=== PATIENT | female | born 1955 | race Caucasian/White ===

== ENCOUNTER 2018-03-01 16:05 | Inpatient (IN) ==
[2018-03-01] MEDS ORDERED: methylPREDNISolone 125 MG/2 ML VIAL IVP ONE (16:12)
[2018-03-01] MEDS ORDERED: Ipratropium/Albuterol Neb 3 ML IH ONE ×2 (16:12→19:42)
--- NOTE | 2018-03-01 16:32 | Emergency Department Note ---
Disposition Clinical Impression: PNA (pneumonia), UTI (urinary tract infection) Disposition: Admitted As Inpatient Condition: Fair Referrals: Mary Beth [Primary Care Provider] - Forms: ED Satisfaction Letter Time of Disposition: 20:38 SOB HPI - General Chief Complaint: ED Shortness of Breath/Dyspnea Stated Complaint: SOB Time Seen by Provider: 03/01/18 16:08 Source: EMS Limitations: no limitations Nursing Notes Reviewed: Yes Vital Signs Reviewed: Yes - History of Present Illness Patient is a 62-year-old female past medical history of diabetes, hypertension, COPD, hyperlipidemia, obesity, cardiomyopathy, CO with a past surgical history of an ICD in place that presents for shortness of breath. Patient admits his symptoms have been occurring for the past 3-4 days. Shortness of breath occurring at rest. Denies any chest pain. Admits to a fever yesterday of 101. Denies any sick contacts at home. Admits to a productive cough with clear sputum. Denies any nausea or vomiting. Admits to minor diarrhea. Denies any hematochezia or melena. Denies any constipation. Denies any dysuria or hematuria. Patient on oxygen at home at 2.5 L and CPAP whenever she lays down. Denies any abdominal pain. Admits to general myalgia and extremities. - Related Data Home Medications Medication Instructions Recorded Confirmed Aspirin [Adult Low Dose Aspirin EC] 81 mg PO DAILY 12/29/15 12/29/15 Furosemide [Lasix] 20 mg PO DAILY 12/29/15 12/29/15 Lisinopril [Zestril] 20 mg PO DAILY 12/29/15 12/29/15 Metoprolol [Lopressor] 50 mg PO BID 12/29/15 12/29/15 Paroxetine [Paxil] 60 mg PO DAILY 12/29/15 12/29/15 metFORMIN [Glucophage] 500 mg PO BIDWM 12/29/15 12/29/15 Previous Rx's Medication Instructions Recorded Simvastatin [Zocor] 40 mg PO HS #30 tablet 12/30/15 Allergies Allergy/AdvReac Type Severity Reaction Status Date / Time venlafaxine [From Effexor] Allergy See Verified 03/01/18 16:23 Comments Past Medical History - Past Medical History Medical history: Reports: atrial fibrillation, cardiomyopathy, CHF, COPD, diabetes, GERD, hypertension, myocardial infarction Psychiatric history: Reports: no psych history - Social History Smoking Status: Current every day smoker Smokeless Tobacco Status: No Alcohol use: Reports: none Drug use: Reports: marijuana Physical Exam - General Limitations: no limitations General appearance: alert - Chest Chest inspection: Present: normal inspection, symmetric chest wall rise - Respiratory Respiratory exam: Present: respiratory distress, wheezes (B/L ) - Cardiovascular Cardiovascular exam: Present: regular rate, normal rhythm, normal heart sounds, +S1, +S2 - Abdominal Exam Abdominal exam: Present: soft, Non-Tender, normal bowel sounds. Absent: tenderness, distention, guarding, rebound, rigidity - Extremities Exam Extremities exam: Present: normal inspection, full ROM. Absent: tenderness, pedal edema Course Course Narrative: Patient given breathing treatments and solu-medrol due to severe wheezing. CT of the chest shows tree-in-bud infiltrates in the right upper lobe of the lung, new since the 04/08/2011 exam, likely related to an infectious etiology. UA shows signs of infection. CTA showes no signs of PE. CTA of head was ordered due to patient displaying brief AMS. Trop was negative EKG shows no ST elevations or acute ischemic changes. Patient placed on bipap. Patient suspected for PNA and UTI. Patient was given rocephin, vancomycin, and rocephin. Spoke to hopsitalist Dr. Chandler who agreed to admit the patient. Chest X-Ray 03/01/18 16:12 IMPRESSION: Stable chest x-ray. No acute disease. D/ / Kyaw Madera MD / Kyaw Madera MD Interpreting Provider: Kyaw Madera MD Chest CTA 03/01/18 18:14 IMPRESSION: 1. There are tree-in-bud infiltrates in the right upper lobe of the lung, new since the 04/08/2011 exam, likely related to an infectious etiology. 2. No evidence of a pulmonary embolism. 3. There are prominent bilateral hilar lymph nodes as well as several paratracheal mediastinal lymph nodes, not appreciably changed dating back to April 08, 2011, favoring a benign etiology. D/ / 03/01/2018 19:23:36 Souleymane Cooper MD / [email or web address] Interpreting Provider: Souleymane Cooper MD Head CT 03/01/18 19:06 IMPRESSION: No acute intracranial abnormality. There was contrast enhancement from a CT chest performed approximately 1 hour earlier. Mild chronic small vessel ischemic white matter disease. D/ / Kyaw Madera MD / Kyaw Madera MD Interpreting Provider: Kyaw Madera MD Vital Signs Temperature 98.3 F 03/01/18 16:12 Pulse Rate 74 03/01/18 16:12 Respiratory Rate 24 03/01/18 16:12 Blood Pressure 131/79 03/01/18 16:12 O2 Sat by Pulse Oximetry 97 03/01/18 16:12 Temperature 98.3 F 03/01/18 16:12 Pulse Rate 67 03/01/18 20:00 Respiratory Rate 23 03/01/18 20:00 Blood Pressure 133/75 03/01/18 20:00 O2 Sat by Pulse Oximetry 100 03/01/18 20:00 Oxygen Delivery Oxygen Delivery Bipap Shortness of Breath/Dyspnea - Lab Data Result diagrams: 03/01/18 16:12 03/01/18 16:12 Lab Results 03/01/18 03/01/18 03/01/18 Range/Units 16:12 16:12 16:12 WBC 3.2 L (4.3-11.1) K/mcL RBC 4.19 (3.82-4.97) M/mcL Hgb 12.5 (11.5-15.4) g/dL Hct 38.3 (35.3-44.9) % MCV 91.4 (83.0-100.0) fL MCH 29.8 (28.0-33.3) pg MCHC 32.6 (31.6-35.5) g/dL RDW 13.1 (11.5-14.5) % Plt Count 175 (140-400) K/mcL MPV 10.0 (9.4-12.4) fL Immature Gran % 0.3 (0-4) % Seg Neutrophils % 54.1 % Lymphocytes % 30.4 % Monocytes % 11.8 % Eosinophils % 2.8 % Basophils % 0.6 % Neutrophils # 1.7 (1.6-8.9) K/mcL Lymphocytes # 1.0 (0.6-4.6) K/mcL Monocytes # 0.4 (0.0-1.3) K/mcL Eosinophils # 0.1 (0.0-0.6) K/mcL Basophils # 0.0 (0.0-0.2) K/mcL PT 11.9 (9.4-12.1) Seconds INR 1.1 APTT 31.2 (26.0-36.0) Seconds Sample Site ABG pH (7.32-7.45) pH Units ABG pCO2 (35-45) mmHg ABG pO2 (85-104) mmHg ABG HCO3 (21-27) mEq/L ABG Total CO2 (20-26) mEq/L ABG O2 Saturation (95-98) % ABG Base Excess (-2 to 3) mEq/L Norberto Test O2 Delivery Device Inspired O2 (1-15=lpm [id number]=%) Sodium 139 (136-145) mEq/L Potassium 3.8 (3.5-5.1) mEq/L Chloride 107 (98-107) mEq/L Carbon Dioxide 26 (23-29) mEq/L BUN 8 (8-23) mg/dL Creatinine 0.61 (0.60-1.20) mg/dL Est GFR ( Amer) > 60 (> 60) Est GFR (Non-Af Amer) > 60 (> 60) BUN/Creatinine Ratio 13 (6-26) Glucose 105 (70-105) mg/dL POC Glucose (70-99) mg/dL Calculated Osmolality 287 (280-300) Lactic Acid (0.5-2.2) mmol/L Calcium 8.9 (8.6-10.3) mg/dL Total Bilirubin (0.3-1.0) mg/dL Direct Bilirubin (0.0-0.2) mg/dL Indirect Bilirubin (0.0-1.2) mg/dL AST (13-39) Units/L ALT (7-52) Units/L Alkaline Phosphatase (34-104) Units/L Ammonia (16-53) mcmol/L Troponin I < 0.03 (< 0.04) ng/mL B-Natriuretic Peptide (Less than 100) pg/mL Serum Total Protein (6.4-8.9) g/dL Albumin (3.5-5.7) g/dL Globulin (2.4-3.5) g/dL Albumin/Globulin Ratio (1.1-2.2) Urine Color (Yellow) Urine Clarity (Clear) Urine pH (5.0-8.0) pH Units Ur Specific [place] (1.010-1.025) Urine Protein (Neg-Trace) mg/dL Urine Glucose (UA) (Normal) mg/dL Urine Ketones (Negative) mg/dL Urine Blood (Negative) Urine Nitrite (Negative) Urine Bilirubin (Negative) Urine Urobilinogen (Normal) mg/dL Ur Leukocyte Esterase (Negative) Urine Microscopic RBC (0-3) per hpf Urine Microscopic WBC (0-3) per hpf Ur Squamous Epith Cells (None-Few) per lpf Urine Bacteria (None-Few) per hpf Hyaline Casts (None-Few) per lpf Ur Culture Indicated? (NO) 03/01/18 03/01/18 03/01/18 Range/Units 16:12 16:42 17:55 WBC (4.3-11.1) K/mcL RBC (3.82-4.97) M/mcL Hgb (11.5-15.4) g/dL Hct (35.3-44.9) % MCV (83.0-100.0) fL MCH (28.0-33.3) pg MCHC (31.6-35.5) g/dL RDW (11.5-14.5) % Plt Count (140-400) K/mcL MPV (9.4-12.4) fL Immature Gran % (0-4) % Seg Neutrophils % % Lymphocytes % % Monocytes % % Eosinophils % % Basophils % % Neutrophils # (1.6-8.9) K/mcL Lymphocytes # (0.6-4.6) K/mcL Monocytes # (0.0-1.3) K/mcL Eosinophils # (0.0-0.6) K/mcL Basophils # (0.0-0.2) K/mcL PT (9.4-12.1) Seconds INR APTT (26.0-36.0) Seconds Sample Site ABG pH (7.32-7.45) pH Units ABG pCO2 (35-45) mmHg ABG pO2 (85-104) mmHg ABG HCO3 (21-27) mEq/L ABG Total CO2 (20-26) mEq/L ABG O2 Saturation (95-98) % ABG Base Excess (-2 to 3) mEq/L Norberto Test O2 Delivery Device Inspired O2 (1-15=lpm os97-131=%) Sodium (136-145) mEq/L Potassium (3.5-5.1) mEq/L Chloride (98-107) mEq/L Carbon Dioxide (23-29) mEq/L BUN (8-23) mg/dL Creatinine (0.60-1.20) mg/dL Est GFR ( Amer) (> 60) Est GFR (Non-Af Amer) (> 60) BUN/Creatinine Ratio (6-26) Glucose (70-105) mg/dL POC Glucose (70-99) mg/dL Calculated Osmolality (280-300) Lactic Acid 0.7 (0.5-2.2) mmol/L Calcium (8.6-10.3) mg/dL Total Bilirubin (0.3-1.0) mg/dL Direct Bilirubin (0.0-0.2) mg/dL Indirect Bilirubin (0.0-1.2) mg/dL AST (13-39) Units/L ALT (7-52) Units/L Alkaline Phosphatase (34-104) Units/L Ammonia (16-53) mcmol/L Troponin I (< 0.04) ng/mL B-Natriuretic Peptide 17 (Less than 100) pg/mL Serum Total Protein (6.4-8.9) g/dL Albumin (3.5-5.7) g/dL Globulin (2.4-3.5) g/dL Albumin/Globulin Ratio (1.1-2.2) Urine Color Yellow (Yellow) Urine Clarity Cloudy A (Clear) Urine pH 5.5 (5.0-8.0) pH Units Ur Specific [place] 1.021 (1.010-1.025) Urine Protein Trace (Neg-Trace) mg/dL Urine Glucose (UA) Normal (Normal) mg/dL Urine Ketones Negative (Negative) mg/dL Urine Blood Negative (Negative) Urine Nitrite Positive A (Negative) Urine Bilirubin Negative (Negative) Urine Urobilinogen Normal (Normal) mg/dL Ur Leukocyte Esterase Negative (Negative) Urine Microscopic RBC 0-3 (0-3) per hpf Urine Microscopic WBC 0-3 (0-3) per hpf Ur Squamous Epith Cells Many H (None-Few) per lpf Urine Bacteria Many H (None-Few) per hpf Hyaline Casts None Seen (None-Few) per lpf Ur Culture Indicated? NO. A (NO) 03/01/18 03/01/18 03/01/18 Range/Units 19:08 19:22 19:45 WBC (4.3-11.1) K/mcL RBC (3.82-4.97) M/mcL Hgb (11.5-15.4) g/dL Hct (35.3-44.9) % MCV (83.0-100.0) fL MCH (28.0-33.3) pg MCHC (31.6-35.5) g/dL RDW (11.5-14.5) % Plt Count (140-400) K/mcL MPV (9.4-12.4) fL Immature Gran % (0-4) % Seg Neutrophils % % Lymphocytes % % Monocytes % % Eosinophils % % Basophils % % Neutrophils # (1.6-8.9) K/mcL Lymphocytes # (0.6-4.6) K/mcL Monocytes # (0.0-1.3) K/mcL Eosinophils # (0.0-0.6) K/mcL Basophils # (0.0-0.2) K/mcL PT (9.4-12.1) Seconds INR APTT (26.0-36.0) Seconds Sample Site R Radial ABG pH 7.34 (7.32-7.45) pH Units ABG pCO2 47 H (35-45) mmHg ABG pO2 138 H (85-104) mmHg ABG HCO3 26 (21-27) mEq/L ABG Total CO2 27 H (20-26) mEq/L ABG O2 Saturation 99 H (95-98) % ABG Base Excess -1 (-2 to 3) mEq/L Norberto Test Positive O2 Delivery Device Cannula Inspired O2 8.0 (1-15=lpm [id number]=%) Sodium (136-145) mEq/L Potassium (3.5-5.1) mEq/L Chloride (98-107) mEq/L Carbon Dioxide (23-29) mEq/L BUN (8-23) mg/dL Creatinine (0.60-1.20) mg/dL Est GFR ( Amer) (> 60) Est GFR (Non-Af Amer) (> 60) BUN/Creatinine Ratio (6-26) Glucose (70-105) mg/dL POC Glucose 126 H (70-99) mg/dL Calculated Osmolality (280-300) Lactic Acid (0.5-2.2) mmol/L Calcium (8.6-10.3) mg/dL Total Bilirubin 0.3 (0.3-1.0) mg/dL Direct Bilirubin 0.1 (0.0-0.2) mg/dL Indirect Bilirubin 0.2 (0.0-1.2) mg/dL AST 17 (13-39) Units/L ALT 14 (7-52) Units/L Alkaline Phosphatase 49 (34-104) Units/L Ammonia (16-53) mcmol/L Troponin I (< 0.04) ng/mL B-Natriuretic Peptide (Less than 100) pg/mL Serum Total Protein 7.2 (6.4-8.9) g/dL Albumin 4.4 (3.5-5.7) g/dL Globulin 2.8 (2.4-3.5) g/dL Albumin/Globulin Ratio 1.6 (1.1-2.2) Urine Color (Yellow) Urine Clarity (Clear) Urine pH (5.0-8.0) pH Units Ur Specific [place] (1.010-1.025) Urine Protein (Neg-Trace) mg/dL Urine Glucose (UA) (Normal) mg/dL Urine Ketones (Negative) mg/dL Urine Blood (Negative) Urine Nitrite (Negative) Urine Bilirubin (Negative) Urine Urobilinogen (Normal) mg/dL Ur Leukocyte Esterase (Negative) Urine Microscopic RBC (0-3) per hpf Urine Microscopic WBC (0-3) per hpf Ur Squamous Epith Cells (None-Few) per lpf Urine Bacteria (None-Few) per hpf Hyaline Casts (None-Few) per lpf Ur Culture Indicated? (NO) 03/01/18 Range/Units 19:45 WBC (4.3-11.1) K/mcL RBC (3.82-4.97) M/mcL Hgb (11.5-15.4) g/dL Hct (35.3-44.9) % MCV (83.0-100.0) fL MCH (28.0-33.3) pg MCHC (31.6-35.5) g/dL RDW (11.5-14.5) % Plt Count (140-400) K/mcL MPV (9.4-12.4) fL Immature Gran % (0-4) % Seg Neutrophils % % Lymphocytes % % Monocytes % % Eosinophils % % Basophils % % Neutrophils # (1.6-8.9) K/mcL Lymphocytes # (0.6-4.6) K/mcL Monocytes # (0.0-1.3) K/mcL Eosinophils # (0.0-0.6) K/mcL Basophils # (0.0-0.2) K/mcL PT (9.4-12.1) Seconds INR APTT (26.0-36.0) Seconds Sample Site ABG pH (7.32-7.45) pH Units ABG pCO2 (35-45) mmHg ABG pO2 (85-104) mmHg ABG HCO3 (21-27) mEq/L ABG Total CO2 (20-26) mEq/L ABG O2 Saturation (95-98) % ABG Base Excess (-2 to 3) mEq/L Norberto Test O2 Delivery Device Inspired O2 (1-15=lpm [id number]=%) Sodium (136-145) mEq/L Potassium (3.5-5.1) mEq/L Chloride (98-107) mEq/L Carbon Dioxide (23-29) mEq/L BUN (8-23) mg/dL Creatinine (0.60-1.20) mg/dL Est GFR ( Amer) (> 60) Est GFR (Non-Af Amer) (> 60) BUN/Creatinine Ratio (6-26) Glucose (70-105) mg/dL POC Glucose (70-99) mg/dL Calculated Osmolality (280-300) Lactic Acid (0.5-2.2) mmol/L Calcium (8.6-10.3) mg/dL Total Bilirubin (0.3-1.0) mg/dL Direct Bilirubin (0.0-0.2) mg/dL Indirect Bilirubin (0.0-1.2) mg/dL AST (13-39) Units/L ALT (7-52) Units/L Alkaline Phosphatase (34-104) Units/L Ammonia 34 (16-53) mcmol/L Troponin I (< 0.04) ng/mL B-Natriuretic Peptide (Less than 100) pg/mL Serum Total Protein (6.4-8.9) g/dL Albumin (3.5-5.7) g/dL Globulin (2.4-3.5) g/dL Albumin/Globulin Ratio (1.1-2.2) Urine Color (Yellow) Urine Clarity (Clear) Urine pH (5.0-8.0) pH Units Ur Specific [place] (1.010-1.025) Urine Protein (Neg-Trace) mg/dL Urine Glucose (UA) (Normal) mg/dL Urine Ketones (Negative) mg/dL Urine Blood (Negative) Urine Nitrite (Negative) Urine Bilirubin (Negative) Urine Urobilinogen (Normal) mg/dL Ur Leukocyte Esterase (Negative) Urine Microscopic RBC (0-3) per hpf Urine Microscopic WBC (0-3) per hpf Ur Squamous Epith Cells (None-Few) per lpf Urine Bacteria (None-Few) per hpf Hyaline Casts (None-Few) per lpf Ur Culture Indicated? (NO) - EKG Data EKG attestation: Yes I reviewed and interpreted this EKG. EKG shows normal: Reports: intervals, QRS complexes, ST-T waves Rate: Reports: normal Badger/QRS: Reports: left axis deviation Attestation Statement - Attestation Attestation: I, Hayder Ann DO, examined this patient [id number] and my medical decision-making was reviewed with Andrey Landaverde PGY-1 Resident Physician. I agree with the documented findings, disposition and treatment plan as described except to the extent set forth below. Please see my progress notes for details.
[2018-03-01 16:59] LABS: INR 1.1; Prothrombin Time 11.9 Seconds (9.4-12.1)
[2018-03-01 17:00] LABS: Basophils % 0.6 %; Eosinophils # 0.1 K/mcL (0.0-0.6); Eosinophils % 2.8 %; Hematocrit 38.3 % (35.3-44.9); Hemoglobin 12.5 g/dL (11.5-15.4); Immature Granulocytes % 0.3 % (0-4); Lymphocytes % 30.4 %; Mean Corpuscular HGB Conc 32.6 g/dL (31.6-35.5); Mean Corpuscular Hemoglobin 29.8 pg (28.0-33.3); Mean Corpuscular Volume 91.4 fL (83.0-100.0); Monocytes # 0.4 K/mcL (0.0-1.3); Monocytes % 11.8 %; Neutrophils # 1.7 K/mcL (1.6-8.9); Platelet Count 175 K/mcL (140-400); Red Blood Count 4.19 M/mcL (3.82-4.97); Red Cell Distribution Width 13.1 % (11.5-14.5); Segmented Neutrophils % 54.1 %
[2018-03-01 17:02] LABS: Activated Partial Thrombo Time 31.2 Seconds (26.0-36.0)
[2018-03-01 17:14] LABS: BUN/Creatinine Ratio 13 (6-26); Blood Urea Nitrogen 8 mg/dL (8-23); Calcium 8.9 mg/dL (8.6-10.3); Carbon Dioxide 26 mEq/L (23-29); Chloride 107 mEq/L (98-107); Glucose 105 mg/dL (70-105); Osmolality,Calculated 287 (280-300); Potassium 3.8 mEq/L (3.5-5.1); Sodium 139 mEq/L (136-145); Troponin I < 0.03 ng/mL (< 0.04); eGFR For African Americans > 60 (> 60); eGFR For Non-African Americans > 60 (> 60)
[2018-03-01 18:09] LABS: Bilirubin,Urine Negative (Negative); Blood,Urine Negative (Negative); Clarity,Urine Cloudy (Clear); Color,Urine Yellow (Yellow); Glucose,Urine (UA) Normal (Normal); Ketones,Urine Negative (Negative); Leukocyte Esterase,Urine Negative (Negative); Nitrite,Urine Positive (Negative); PH,Urine 5.5 pH Units (5.0-8.0); Protein,Urine Trace mg/dL (Neg-Trace); Specific Gravity,Urine 1.021 (1.010-1.025); Urobilinogen,Urine Normal (Normal)
[2018-03-01 18:12] LABS: Bacteria,Urine Many per hpf (None-Few); Hyaline Casts,Urine None Seen per lpf (None-Few); RBC,Urine 0-3 per hpf (0-3); Squamous Epithelial Cell,Urine Many per lpf (None-Few); WBC,Urine 0-3 per hpf (0-3)
[2018-03-01] MEDS ORDERED: Isovue-370 500 ML INFUS..BTL IV ONE (18:14)
[2018-03-01] MEDS ORDERED: cefTRIAXone 1,000 MG in Water for inj. (sterile) 20 ML 10 ML IVP ONE (19:10)
[2018-03-01] MEDS ORDERED: Piperacillin/Tazobactam 3.375 GM in 0.9 % Sodium Chloride Mini Bag 100 ML IVPB ONE (19:20)
[2018-03-01 19:25] LABS: ABG Base Excess -1 mEq/L (-2 to 3); ABG HCO3 26 mEq/L (21-27); ABG Oxygen Saturation 99 % (95-98); ABG PCO2 47 mmHg (35-45); ABG PH 7.34 pH Units (7.32-7.45); ABG PO2 138 mmHg (85-104); ABG TCO2 27 mEq/L (20-26)
[2018-03-01 20:17] LABS: Albumin 4.4 g/dL (3.5-5.7); Albumin/Globulin Ratio 1.6 (1.1-2.2); Bilirubin,Direct 0.1 mg/dL (0.0-0.2); Bilirubin,Indirect 0.2 mg/dL (0.0-1.2); Bilirubin,Total 0.3 mg/dL (0.3-1.0); Globulin 2.8 g/dL (2.4-3.5); Total Protein 7.2 g/dL (6.4-8.9)
--- NOTE | 2018-03-01 20:52 | Emergency Department Note ---
Disposition Clinical Impression: PNA (pneumonia), UTI (urinary tract infection) Disposition: Admitted As Inpatient Condition: Fair Referrals: Mary Beth [Non-Partnered Physician] - Forms: ED Satisfaction Letter Time of Disposition: 21:00 General Adult HPI - General Chief complaint: ED Shortness of Breath/Dyspnea Stated complaint: SOB Time Seen by Provider: 03/01/18 16:08 Source: EMS Limitations: no limitations - History of Present Illness Pain Scale: 0 - Related Data Home Medications Medication Instructions Recorded Confirmed Aspirin [Adult Low Dose Aspirin EC] 81 mg PO DAILY 12/29/15 12/29/15 Furosemide [Lasix] 20 mg PO DAILY 12/29/15 12/29/15 Lisinopril [Zestril] 20 mg PO DAILY 12/29/15 12/29/15 metFORMIN [Glucophage] 500 mg PO BIDWM 12/29/15 12/29/15 Atorvastatin [Lipitor] 40 mg PO HS 03/01/18 03/01/18 Gabapentin [Neurontin] 600 mg PO TID 03/01/18 03/01/18 Metoprolol Succinate [Toprol Xl] 100 mg PO DAILY 03/01/18 03/01/18 Paroxetine HCl [Paxil] 20 mg PO DAILY 03/01/18 03/01/18 amLODIPine [Norvasc] 5 mg PO DAILY 03/01/18 03/01/18 Allergies Allergy/AdvReac Type Severity Reaction Status Date / Time venlafaxine [From Effexor] Allergy See Verified 03/01/18 16:23 Comments Past Medical History - Past Medical History Medical history: Reports: atrial fibrillation, cardiomyopathy, CHF, COPD, diabetes, GERD, hypertension, myocardial infarction Psychiatric history: Reports: no psych history - Social History Smoking Status: Current every day smoker Smokeless Tobacco Status: No Alcohol use: Reports: none Drug use: Reports: marijuana Physical Exam - General Limitations: no limitations General appearance: alert Course Vital Signs Temperature 98.3 F 03/01/18 16:12 Pulse Rate 74 03/01/18 16:12 Respiratory Rate 24 03/01/18 16:12 Blood Pressure 131/79 03/01/18 16:12 O2 Sat by Pulse Oximetry 97 03/01/18 16:12 Temperature 98.3 F 03/01/18 16:12 Pulse Rate 67 03/01/18 20:00 Respiratory Rate 23 03/01/18 20:00 Blood Pressure 133/75 03/01/18 20:00 O2 Sat by Pulse Oximetry 100 03/01/18 20:00 Oxygen Delivery Oxygen Delivery Bipap Medical Decision Making - Lab Data Result diagrams: 03/01/18 16:12 03/01/18 16:12 Lab Results 03/01/18 03/01/18 03/01/18 Range/Units 16:12 16:12 16:12 WBC 3.2 L (4.3-11.1) K/mcL RBC 4.19 (3.82-4.97) M/mcL Hgb 12.5 (11.5-15.4) g/dL Hct 38.3 (35.3-44.9) % MCV 91.4 (83.0-100.0) fL MCH 29.8 (28.0-33.3) pg MCHC 32.6 (31.6-35.5) g/dL RDW 13.1 (11.5-14.5) % Plt Count 175 (140-400) K/mcL MPV 10.0 (9.4-12.4) fL Immature Gran % 0.3 (0-4) % Seg Neutrophils % 54.1 % Lymphocytes % 30.4 % Monocytes % 11.8 % Eosinophils % 2.8 % Basophils % 0.6 % Neutrophils # 1.7 (1.6-8.9) K/mcL Lymphocytes # 1.0 (0.6-4.6) K/mcL Monocytes # 0.4 (0.0-1.3) K/mcL Eosinophils # 0.1 (0.0-0.6) K/mcL Basophils # 0.0 (0.0-0.2) K/mcL PT 11.9 (9.4-12.1) Seconds INR 1.1 APTT 31.2 (26.0-36.0) Seconds Sample Site ABG pH (7.32-7.45) pH Units ABG pCO2 (35-45) mmHg ABG pO2 (85-104) mmHg ABG HCO3 (21-27) mEq/L ABG Total CO2 (20-26) mEq/L ABG O2 Saturation (95-98) % ABG Base Excess (-2 to 3) mEq/L Norberto Test O2 Delivery Device Inspired O2 (1-15=lpm [id number]=%) Sodium 139 (136-145) mEq/L Potassium 3.8 (3.5-5.1) mEq/L Chloride 107 (98-107) mEq/L Carbon Dioxide 26 (23-29) mEq/L BUN 8 (8-23) mg/dL Creatinine 0.61 (0.60-1.20) mg/dL Est GFR ( Amer) > 60 (> 60) Est GFR (Non-Af Amer) > 60 (> 60) BUN/Creatinine Ratio 13 (6-26) Glucose 105 (70-105) mg/dL POC Glucose (70-99) mg/dL Calculated Osmolality 287 (280-300) Lactic Acid (0.5-2.2) mmol/L Calcium 8.9 (8.6-10.3) mg/dL Total Bilirubin (0.3-1.0) mg/dL Direct Bilirubin (0.0-0.2) mg/dL Indirect Bilirubin (0.0-1.2) mg/dL AST (13-39) Units/L ALT (7-52) Units/L Alkaline Phosphatase (34-104) Units/L Ammonia (16-53) mcmol/L Troponin I < 0.03 (< 0.04) ng/mL B-Natriuretic Peptide (Less than 100) pg/mL Serum Total Protein (6.4-8.9) g/dL Albumin (3.5-5.7) g/dL Globulin (2.4-3.5) g/dL Albumin/Globulin Ratio (1.1-2.2) Urine Color (Yellow) Urine Clarity (Clear) Urine pH (5.0-8.0) pH Units Ur Specific [place] (1.010-1.025) Urine Protein (Neg-Trace) mg/dL Urine Glucose (UA) (Normal) mg/dL Urine Ketones (Negative) mg/dL Urine Blood (Negative) Urine Nitrite (Negative) Urine Bilirubin (Negative) Urine Urobilinogen (Normal) mg/dL Ur Leukocyte Esterase (Negative) Urine Microscopic RBC (0-3) per hpf Urine Microscopic WBC (0-3) per hpf Ur Squamous Epith Cells (None-Few) per lpf Urine Bacteria (None-Few) per hpf Hyaline Casts (None-Few) per lpf Ur Culture Indicated? (NO) 03/01/18 03/01/1803/01/18 Range/Units 16:12 16:42 17:55 WBC (4.3-11.1) K/mcL RBC (3.82-4.97) M/mcL Hgb (11.5-15.4) g/dL Hct (35.3-44.9) % MCV (83.0-100.0) fL MCH (28.0-33.3) pg MCHC (31.6-35.5) g/dL RDW (11.5-14.5) % Plt Count (140-400) K/mcL MPV (9.4-12.4) fL Immature Gran % (0-4) % Seg Neutrophils % % Lymphocytes % % Monocytes % % Eosinophils % % Basophils % % Neutrophils # (1.6-8.9) K/mcL Lymphocytes # (0.6-4.6) K/mcL Monocytes # (0.0-1.3) K/mcL Eosinophils # (0.0-0.6) K/mcL Basophils # (0.0-0.2) K/mcL PT (9.4-12.1) Seconds INR APTT (26.0-36.0) Seconds Sample Site ABG pH (7.32-7.45) pH Units ABG pCO2 (35-45) mmHg ABG pO2 (85-104) mmHg ABG HCO3 (21-27) mEq/L ABG Total CO2 (20-26) mEq/L ABG O2 Saturation (95-98) % ABG Base Excess (-2 to 3) mEq/L Norberto Test O2 Delivery Device Inspired O2 (1-15=lpm [id number]=%) Sodium (136-145) mEq/L Potassium (3.5-5.1) mEq/L Chloride (98-107) mEq/L Carbon Dioxide (23-29) mEq/L BUN (8-23) mg/dL Creatinine (0.60-1.20) mg/dL Est GFR ( Amer) (> 60) Est GFR (Non-Af Amer) (> 60) BUN/Creatinine Ratio (6-26) Glucose (70-105) mg/dL POC Glucose (70-99) mg/dL Calculated Osmolality (280-300) Lactic Acid 0.7 (0.5-2.2) mmol/L Calcium (8.6-10.3) mg/dL Total Bilirubin (0.3-1.0) mg/dL Direct Bilirubin (0.0-0.2) mg/dL Indirect Bilirubin (0.0-1.2) mg/dL AST (13-39) Units/L ALT (7-52) Units/L Alkaline Phosphatase (34-104) Units/L Ammonia (16-53) mcmol/L Troponin I (< 0.04) ng/mL B-Natriuretic Peptide 17 (Less than 100) pg/mL Serum Total Protein (6.4-8.9) g/dL Albumin (3.5-5.7) g/dL Globulin (2.4-3.5) g/dL Albumin/Globulin Ratio (1.1-2.2) Urine Color Yellow (Yellow) Urine Clarity Cloudy A (Clear) Urine pH 5.5 (5.0-8.0) pH Units Ur Specific [place] 1.021 (1.010-1.025) Urine Protein Trace (Neg-Trace) mg/dL Urine Glucose (UA) Normal (Normal) mg/dL Urine Ketones Negative (Negative) mg/dL Urine Blood Negative (Negative) Urine Nitrite Positive A (Negative) Urine Bilirubin Negative (Negative) Urine Urobilinogen Normal (Normal) mg/dL Ur Leukocyte Esterase Negative (Negative) Urine Microscopic RBC 0-3 (0-3) per hpf Urine Microscopic WBC 0-3 (0-3) per hpf Ur Squamous Epith Cells Many H (None-Few) per lpf Urine Bacteria Many H (None-Few) per hpf Hyaline Casts None Seen (None-Few) per lpf Ur Culture Indicated? NO. A (NO) 03/01/18 03/01/18 03/01/18 Range/Units 19:08 19:22 19:45 WBC (4.3-11.1) K/mcL RBC (3.82-4.97) M/mcL Hgb (11.5-15.4) g/dL Hct (35.3-44.9) % MCV (83.0-100.0) fL MCH (28.0-33.3) pg MCHC (31.6-35.5) g/dL RDW (11.5-14.5) % Plt Count (140-400) K/mcL MPV (9.4-12.4) fL Immature Gran % (0-4) % Seg Neutrophils % % Lymphocytes % % Monocytes % % Eosinophils % % Basophils % % Neutrophils # (1.6-8.9) K/mcL Lymphocytes # (0.6-4.6) K/mcL Monocytes # (0.0-1.3) K/mcL Eosinophils # (0.0-0.6) K/mcL Basophils # (0.0-0.2) K/mcL PT (9.4-12.1) Seconds INR APTT (26.0-36.0) Seconds Sample Site R Radial ABG pH 7.34 (7.32-7.45) pH Units ABG pCO2 47 H (35-45) mmHg ABG pO2 138 H (85-104) mmHg ABG HCO3 26 (21-27) mEq/L ABG Total CO2 27 H (20-26) mEq/L ABG O2 Saturation 99 H (95-98) % ABG Base Excess -1 (-2 to 3) mEq/L Norberto Test Positive O2 Delivery Device Cannula Inspired O2 8.0 (1-15=lpm ya71-736=%) Sodium (136-145) mEq/L Potassium (3.5-5.1) mEq/L Chloride (98-107) mEq/L Carbon Dioxide (23-29) mEq/L BUN (8-23) mg/dL Creatinine (0.60-1.20) mg/dL Est GFR ( Amer) (> 60) Est GFR (Non-Af Amer) (> 60) BUN/Creatinine Ratio (6-26) Glucose (70-105) mg/dL POC Glucose 126 H (70-99) mg/dL Calculated Osmolality (280-300) Lactic Acid (0.5-2.2) mmol/L Calcium (8.6-10.3) mg/dL Total Bilirubin 0.3 (0.3-1.0) mg/dL Direct Bilirubin 0.1 (0.0-0.2) mg/dL Indirect Bilirubin 0.2 (0.0-1.2) mg/dL AST 17 (13-39) Units/L ALT 14 (7-52) Units/L Alkaline Phosphatase 49 (34-104) Units/L Ammonia (16-53) mcmol/L Troponin I (< 0.04) ng/mL B-Natriuretic Peptide (Less than 100) pg/mL Serum Total Protein 7.2 (6.4-8.9) g/dL Albumin 4.4 (3.5-5.7) g/dL Globulin 2.8 (2.4-3.5) g/dL Albumin/Globulin Ratio 1.6 (1.1-2.2) Urine Color (Yellow) Urine Clarity (Clear) Urine pH (5.0-8.0) pH Units Ur Specific [place] (1.010-1.025) Urine Protein (Neg-Trace) mg/dL Urine Glucose (UA) (Normal) mg/dL Urine Ketones (Negative) mg/dL Urine Blood (Negative) Urine Nitrite (Negative) Urine Bilirubin (Negative) Urine Urobilinogen (Normal) mg/dL Ur Leukocyte Esterase (Negative) Urine Microscopic RBC (0-3) per hpf Urine Microscopic WBC (0-3) per hpf Ur Squamous Epith Cells (None-Few) per lpf Urine Bacteria (None-Few) per hpf Hyaline Casts (None-Few) per lpf Ur Culture Indicated? (NO) 03/01/18 Range/Units 19:45 WBC (4.3-11.1) K/mcL RBC (3.82-4.97) M/mcL Hgb (11.5-15.4) g/dL Hct (35.3-44.9) % MCV (83.0-100.0) fL MCH (28.0-33.3) pg MCHC (31.6-35.5) g/dL RDW (11.5-14.5) % Plt Count (140-400) K/mcL MPV (9.4-12.4) fL Immature Gran % (0-4) % Seg Neutrophils % % Lymphocytes % % Monocytes % % Eosinophils % % Basophils % % Neutrophils # (1.6-8.9) K/mcL Lymphocytes # (0.6-4.6) K/mcL Monocytes # (0.0-1.3) K/mcL Eosinophils # (0.0-0.6) K/mcL Basophils # (0.0-0.2) K/mcL PT (9.4-12.1) Seconds INR APTT (26.0-36.0) Seconds Sample Site ABG pH (7.32-7.45) pH Units ABG pCO2 (35-45) mmHg ABG pO2 (85-104) mmHg ABG HCO3 (21-27) mEq/L ABG Total CO2 (20-26) mEq/L ABG O2 Saturation (95-98) % ABG Base Excess (-2 to 3) mEq/L Norberto Test O2 Delivery Device Inspired O2 (1-15=lpm [id number]=%) Sodium (136-145) mEq/L Potassium (3.5-5.1) mEq/L Chloride (98-107) mEq/L Carbon Dioxide (23-29) mEq/L BUN (8-23) mg/dL Creatinine (0.60-1.20) mg/dL Est GFR ( Amer) (> 60) Est GFR (Non-Af Amer) (> 60) BUN/Creatinine Ratio (6-26) Glucose (70-105) mg/dL POC Glucose (70-99) mg/dL Calculated Osmolality (280-300) Lactic Acid (0.5-2.2) mmol/L Calcium (8.6-10.3) mg/dL Total Bilirubin (0.3-1.0) mg/dL Direct Bilirubin (0.0-0.2) mg/dL Indirect Bilirubin (0.0-1.2) mg/dL AST (13-39) Units/L ALT (7-52) Units/L Alkaline Phosphatase (34-104) Units/L Ammonia 34 (16-53) mcmol/L Troponin I (< 0.04) ng/mL B-Natriuretic Peptide (Less than 100) pg/mL Serum Total Protein (6.4-8.9) g/dL Albumin (3.5-5.7) g/dL Globulin (2.4-3.5) g/dL Albumin/Globulin Ratio (1.1-2.2) Urine Color (Yellow) Urine Clarity (Clear) Urine pH (5.0-8.0) pH Units Ur Specific [place] (1.010-1.025) Urine Protein (Neg-Trace) mg/dL Urine Glucose (UA) (Normal) mg/dL Urine Ketones (Negative) mg/dL Urine Blood (Negative) Urine Nitrite (Negative) Urine Bilirubin (Negative) Urine Urobilinogen (Normal) mg/dL Ur Leukocyte Esterase (Negative) Urine Microscopic RBC (0-3) per hpf Urine Microscopic WBC (0-3) per hpf Ur Squamous Epith Cells (None-Few) per lpf Urine Bacteria (None-Few) per hpf Hyaline Casts (None-Few) per lpf Ur Culture Indicated? (NO) Attestation Statement - Attestation Attestation: I, Hayder Ann DO, examined this patient [id number] and my medical decision-making was reviewed with Andrey Perez PGY_1, Resident Physician. I agree with the documented findings, disposition and treatment plan as described except to the extent set forth below. Please see my progress notes for details. 62-year-old female presents to the emergency room by EMS for increased work of breathing, productive cough, shortness of breath. Patient denies any chest pain. She has had intermittent fevers. Denies any trauma or injury. Currently denying nausea vomiting diarrhea headache or vision change. Her main complaint is fever productive sputum and shortness of breath. Patient on presentations alert but does appear to have some somnolence. Patient does take medications for anxiety and depression. Patient denied any ingestion here today. Vital signs at presentation are stable. Pulse ox appeared to be normal on her home oxygen. Patient provided breathing treatment secondary to coarse crackles on initial presentation. BiPAP was applied to help with ease of breathing considering she does use CPAP at home. Patient will have CBC chemistry EKG labs including troponin and urinalysis will be ordered along with BNP. Patient will have chest x-ray ordered at this time. Disposition pending this workup and treatment course. My physical exam is concerning for pulmonary related illness or issue. Patient does not have any specific guarding or symptoms of the abdomen. Patient will have definitive management completed after the treatment course is established in the emergency room except the patient will require admission. See detailed documentation of the physical exam , medical intervention, medical decision-making and disposition in the resident physician's note. No critical care applied to the patient's treatment course at this time. 2000 Patient found to have pneumonia as well as a urinary tract infection. Patient was started on vancomycin and Zosyn to Rocephin. The etiology to the tree-in- bud formation was a reasonably escalate antibiotic regimen at this point as well as the patient's presentation. Patient was acting a little more somnolent. ABG as well as urine drug screen and ammonia were collected and CT imaging the head was also completed. CT angiography was added on detail the patient still has shortness of breath with a negative chest x-ray. The CT did confirm the pneumonia. Patient will be admitted for definitive management. CT imaging of head is unremarkable. The remainder of the labs do not show any acute pathology. ABG does not show any acute signs of ventilation/perfusion deficit at this point. Patient does wake up at this time at the bedside is acting more appropriately. Patient does have a bad anxiety and depression this could be the underlying etiology possibly infectious etiology at this time. Admission process completed after conversation was had with the hospitals. No other recommendations at this time.
[2018-03-01 21:10] LABS: Amphetamine Screen,Urine Negative ng/mL (Cutoff=1000); Barbiturate Screen,Urine Negative ng/mL (Cutoff=200); Benzodiazepines Screen,Urine Positive ng/mL (Cutoff=200); Cannabinoid Screen,Urine Positive ng/mL (Cutoff = 50); Cocaine Screen,Urine Negative ng/mL (Cutoff= 300); Opiate Screen,Urine Negative ng/mL (Cutoff=300); Phencyclidine Screen,Urine Negative ng/mL (Cutoff=25)
[2018-03-01] MEDS ORDERED: Dextrose Gel 15 GM/37.5 ML TUBE PO PRN ×2 (21:40)
[2018-03-01] MEDS ORDERED: D5% in Water 1,000 ML IVC PRN (21:40)
[2018-03-01] MEDS ORDERED: *HR* Dextrose 50 % in Water (Syg) 50 ML SYRINGE IVP PRN (21:40)
[2018-03-01] MEDS ORDERED: Acetaminophen 325 MG TABLET PO PRN (21:42)
[2018-03-01] MEDS ORDERED: Naloxone 0.4 MG/ML INJ IVP PRN (21:42)
--- NOTE | 2018-03-01 21:48 | Internal Med History&Physical ---
Date of Encounter: 03/01/18 Time of Encounter: 21:46 Internal Medicine - H&P: HPI Chief complaint: Shortness of breath Admitted From: Emergency Dept Plans for Post Hospital Care: Home History of present illness: Ms. Rai is a 62 year old female with history of COPD on chronic O2, diabetes , hypertension, obesity, cardiomyopathy status post ICD who presented to the ED with complaints of shortness of breath that has been going on for about 3 days or so. Patient reports shortness of breath at rest. He had a temperature as high as 101 at home yesterday. He has a productive cough with clear sputum. The patient denies any headache, blurry vision, nausea, vomiting, chest pain, dizziness, abdominal pain, diarrhea, constipation, urinary symptoms, or neurological symptoms. When he presented to the ED the patient was significantly wheezing and respiratory distress. He was put on BiPAP. Laboratory workup showed leukopenia and imaging studies showed pneumonia. Also showed possible UTI. The patient was given IV vancomycin, Zosyn, and Rocephin. He was also given IV Solu-Medrol and a couple of breathing treatments. Past Med Surg Social Fam HX - Past Medical History Medical history: atrial fibrillation, cardiomyopathy, CHF, COPD, diabetes, GERD , hypertension, myocardial infarction Psychiatric history: no psych history - Social History Smoking Status: Current every day smoker Smokeless Tobacco Status: No Alcohol use: none Drug use: marijuana - Family History Mother Adopted: No Family Member Ethnicity: Non- Living Status: Hx Family Cardiac Disorders: Yes Hx Family Respiratory Disorders: Yes Hx Family Cancer: No Hx Family GI Disorders: No Hx Family Endocrine Disorder: No Hx Family Neuromuscular Disorders: No Hx Family Neurologic Disorders: Yes Hx Family HEENT Disorders: Yes Hx Family Autoimmune Disorders: No Internal Medicine - H&P: Meds Aspirin [Adult Low Dose Aspirin EC] 81 mg PO DAILY 12/29/15 [History] Furosemide [Lasix] 20 mg PO DAILY 12/29/15 [History] Lisinopril [Zestril] 20 mg PO DAILY 12/29/15 [History] metFORMIN [Glucophage] 500 mg PO BIDWM 12/29/15 [History] Atorvastatin [Lipitor] 40 mg PO HS 03/01/18 [History] Gabapentin [Neurontin] 600 mg PO TID 03/01/18 [History] Metoprolol Succinate [Toprol Xl] 100 mg PO DAILY 03/01/18 [History] Paroxetine HCl [Paxil] 20 mg PO DAILY 03/01/18 [History] amLODIPine [Norvasc] 5 mg PO DAILY 03/01/18 [History] 3 Allergy/AdvReac Type Severity Reaction Status Date / Time venlafaxine [From Effexor] Allergy See Verified 03/01/18 16:23 Comments All Systems PM: A 10-system review of systems was performed and is negative for pertinent findings except as documented above in the HPI. Review of systems: All systems reviewed are negative except for mentioned above - Constitutional Vitals: Temp Pulse Resp BP Pulse Ox 98.3 F 67 23 133/75 100 03/01/18 16:12 03/01/18 20:00 03/01/18 20:00 03/01/18 20:00 03/01/18 20:00 Exam: GEN: NAD HEENT: AT, NC, No cyanosis, oral mucosa is moist, No JVD Lymphatics: No lymphadenoapthy Eyes: Extrocular muscles intact, anicteric CVS:RRR. S1, S2, No m/r/g RESP: Diminished with expiratory wheezes posteriorly. Coarse breath sounds on the right. ABD: Soft, NT, ND, +BS EXT: No edema, No rashes, 2+ DP NEURO: Nonfocal, CN II-XII intact, No focal motor or sensory deficits Psych: Cooperative, Not anxious or depressed Internal Med - H&P Results - Labs CBC & Chem 7: 03/01/18 16:12 03/01/18 16:12 Labs: Short CBC 03/01/18 Range/Units 16:12 WBC 3.2 L (4.3-11.1) K/mcL Hgb 12.5 (11.5-15.4) g/dL Hct 38.3 (35.3-44.9) % Plt Count 175 (140-400) K/mcL Neutrophils # 1.7 (1.6-8.9) K/mcL BMP 03/01/18 16:12 Sodium 139 Potassium 3.8 Chloride 107 Carbon Dioxide 26 BUN 8 Creatinine 0.61 Glucose 105 Calcium 8.9 Cardiac Enzymes 03/01/18 Range/Units 16:12 Troponin I < 0.03 (< 0.04) ng/mL Liver Function 05/04/18 Range/Units 19:45 Total Bilirubin 0.3 (0.3-1.0) mg/dL Direct Bilirubin 0.1 (0.0-0.2) mg/dL AST 17 (13-39) Units/L ALT 14 (7-52) Units/L Alkaline Phosphatase 49 (34-104) Units/L Albumin 4.4 (3.5-5.7) g/dL Urine 03/01/18 Range/Units 17:55 Urine Color Yellow (Yellow) Urine Clarity Cloudy A (Clear) Urine pH 5.5 (5.0-8.0) pH Units Ur Specific [place] 1.021 (1.010-1.025) Urine Protein Trace (Neg-Trace) mg/dL Urine Glucose (UA) Normal (Normal) mg/dL - ABG Interpretation ABG results: 03/01/18 19:22 ABG pH 7.34 ABG pCO2 47 H ABG pO2 138 H ABG HCO3 26 ABG Total CO2 27 H ABG O2 Saturation 99 H ABG Base Excess -1 - Impressions ITS Impressions Chest X-Ray 03/01/18 16:12 IMPRESSION: Stable chest x-ray. No acute disease. D/ / Kyaw Madera MD / Kyaw Madera MD Interpreting Provider: Kyaw Madera MD Chest CTA 03/01/18 18:14 IMPRESSION: 1. There are tree-in-bud infiltrates in the right upper lobe of the lung, new since the 04/08/2011 exam, likely related to an infectious etiology. 2. No evidence of a pulmonary embolism. 3. There are prominent bilateral hilar lymph nodes as well as several paratracheal mediastinal lymph nodes, not appreciably changed dating back to April 08, 2011, favoring a benign etiology. D/ / 03/01/2018 19:23:36 Souleymane Cooper MD / nadja Interpreting Provider: Souleymane Cooper MD Head CT 03/01/18 19:06 IMPRESSION: No acute intracranial abnormality. There was contrast enhancement from a CT chest performed approximately 1 hour earlier. Mild chronic small vessel ischemic white matter disease. D/ / Kyaw Madera MD / Kyaw Madera MD Interpreting Provider: Kyaw Madera MD - Assessment and plan (1) PNA (pneumonia) Current Visit: Yes Status: Acute Assessment and plan: Admit patient. Will place on rocephin/azithromax. check sputum cultures. check urine strep/legionella. f/u on blood cultures. O2 support and wean as tolerated. Nebs. Qualifiers: Pneumonia type: due to unspecified organism Laterality: unspecified laterality Lung location: unspecified part of lung Qualified Code(s): J18.9 - Pneumonia, unspecified organism (2) COPD exacerbation Current Visit: Yes Status: Acute Assessment and plan: Will put on IV solumedrol. Nebs. O2 support and wean as tolerated. On abx as above (3) UTI (urinary tract infection) Current Visit: Yes Status: Acute Assessment and plan: IV rocephin. follow up on cultures. Qualifiers: Urinary tract infection type: site unspecified Hematuria presence: without hematuria Qualified Code(s): N39.0 - Urinary tract infection, site not specified (4) HTN (hypertension) Current Visit: No Status: Chronic Assessment and plan: c/w daisha antihypertensives. BP stable. Qualifiers: Hypertension type: essential hypertension Qualified Code(s): I10 - Essential (primary) hypertension (5) Diabetes Current Visit: No Status: Acute Assessment and plan: Insulin sliding scale. Accucheks. Qualifiers: Diabetes mellitus type: type 2 Diabetes mellitus ocean transportation intermediary insulin use: without long-term use Diabetes mellitus complication status: without complication Qualified Code(s): E11.9 - Type 2 diabetes mellitus without complications (6) DVT prophylaxis Current Visit: Yes Status: Acute Assessment and plan: heparin SQ - Time Spent With Patient Total time spent is greater than 50% in coordination of care (as documented) at patient's floor/unit and/or counseling patient:
[2018-03-01] MEDS: Ipratropium/Albuterol Neb 3 ML IH SCH (23:20)
[2018-03-01] MEDS: methylPREDNISolone 125 MG/2 ML VIAL IVP SCH (23:52)
[2018-03-01] MEDS: *HR* HYDROcodone/Acet 5/325 mg TABLET PO PRN (23:53)
[2018-03-01] MEDS: *HR* Heparin 5,000 UNIT/ML VIAL SQ SCH (23:55)
[2018-03-01] MEDS: Azithromycin 500 MG in D5% in Water 250 ML IVPB SCH (23:57)
[2018-03-02] MEDS: Ipratropium/Albuterol Neb 3 ML IH SCH ×4 (03:54→22:17)
[2018-03-02] MEDS: *HR* Heparin 5,000 UNIT/ML VIAL SQ SCH ×3 (05:54→21:41)
[2018-03-02] MEDS: *HR* HYDROcodone/Acet 5/325 mg TABLET PO PRN ×3 (06:05→21:40)
[2018-03-02] MEDS: amLODIPine 5 MG TABLET PO SCH (08:58)
[2018-03-02] MEDS: Metoprolol XL (24 HR) Succ 50 MG TAB.ER.24H PO SCH (08:58)
[2018-03-02] MEDS: Aspirin Enteric Coated 81 MG Tablet PO SCH (08:58)
[2018-03-02] MEDS: Lisinopril 20 MG TABLET PO SCH (08:58)
[2018-03-02] MEDS: Gabapentin 300 MG CAPSULE PO SCH ×3 (08:58→21:40)
[2018-03-02] MEDS: cefTRIAXone 1,000 MG in Water for inj. (sterile) 20 ML 10 ML IVP SCH (08:58)
[2018-03-02] MEDS: methylPREDNISolone 125 MG/2 ML VIAL IVP SCH (08:59)
[2018-03-02] MEDS: Insulin LISPRO 300 UNITS/3 ML VIAL SQ SCH ×4 (08:59→21:29)
--- NOTE | 2018-03-02 12:39 | Internal Med Progress Note ---
Date of Encounter: 03/02/18 Time of Encounter: 12:20 - Assessment and plan (1) PNA (pneumonia) Current Visit: Yes Status: Acute Assessment and plan: Reviwed CT of Chest-- RUL PNA mostly bacterial cont empirical abx Rocephin + Azithromycin cont Duoneb Qualifiers: Pneumonia type: due to unspecified organism Laterality: unspecified laterality Lung location: unspecified part of lung Qualified Code(s): J18.9 - Pneumonia, unspecified organism (2) COPD exacerbation Current Visit: Yes Status: Acute Assessment and plan: Since pt still has moderate to severe wheezing will cont high dose IV steroids Cont Duoneb (3) Chronic respiratory failure with hypoxia Current Visit: Yes Status: Acute Assessment and plan: Back to baseline ..currently on 2 lit O2 cont BiPAP at bed time (4) UTI (urinary tract infection) Current Visit: Yes Status: Acute Assessment and plan: UA looks abnormal Cont empirical abx IV rocephin. follow up on cultures. Qualifiers: Urinary tract infection type: site unspecified Hematuria presence: without hematuria Qualified Code(s): N39.0 - Urinary tract infection, site not specified (5) HTN (hypertension) Current Visit: No Status: Chronic Assessment and plan: stable resumed all home BP meds Qualifiers: Hypertension type: essential hypertension Qualified Code(s): I10 - Essential (primary) hypertension (6) Diabetes Current Visit: No Status: Acute Assessment and plan: Cont Insulin sliding scale. Accucheks. Qualifiers: Diabetes mellitus type: type 2 Diabetes mellitus chcf insulin use: without chcf use Diabetes mellitus complication status: without complication Qualified Code(s): E11.9 - Type 2 diabetes mellitus without complications (7) DVT prophylaxis Current Visit: Yes Status: Acute Assessment and plan: heparin SQ (8) Anxiety Current Visit: Yes Status: Acute Assessment and plan: started on low dose Ativan PRN - Time Spent With Patient Total time spent is greater than 50% in coordination of care (as documented) at patient's floor/unit and/or counseling patient: - Subjective Interval history: Ms. Rai is a 62 year old female with history of COPD on chronic O2, diabetes , hypertension, obesity, cardiomyopathy status post ICD who presented to the ED with complaints of shortness of breath that has been going on for about 3 days. Pt is a heavy smoker and does smoke 1 PPD. She does c/o cough with expectoration and generalized body pain. Denied any CP. She does have more anxiety and tearful today about her medical problems. - Constitutional Vitals: Temp Pulse Resp BP Pulse Ox 97.7 F 101 20 179/80 95 03/02/18 11:22 03/02/18 11:22 03/02/18 11:22 03/02/18 11:22 03/02/18 11:22 General appearance: Present: cooperative, A&O X 3, answers questions appropriately - Head Head exam: Present: atraumatic, normal inspection - Neck Neck exam general surgery: Present: supple - Respiratory Respiratory exam: Present: decreased breath sounds, wheezes (moderate to severe ). Absent: rales, respiratory distress, rhonchi - Cardiovascular Cardiovascular exam: Present: RRR, +S1, +S2. Absent: tachycardia - GI/Abdominal GI/Abdominal exam: Present: normal bowel sounds, soft. Absent: rebound, rigid, tenderness - Extremities Exam Extremities exam: Absent: calf tenderness, pedal edema, tenderness - Back Exam Back exam: Absent: CVA tenderness (L), CVA tenderness (R) - Neurological Exam Neurological exam: Present: alert, oriented X3 - Psychiatric Psychiatric exam: Present: anxious, depressed Internal Medicine: Result - Labs CBC & Chem 7: 03/01/18 16:12 03/01/18 16:12 - ABG Interpretation ABG results: ABG ABG pH 7.34 pH Units (7.32-7.45) 03/01/18 19:22 ABG pCO2 47 mmHg (35-45) H 03/01/18 19:22 ABG pO2 138 mmHg (85-104) H 03/01/18 19:22 ABG O2 Saturation 99 % (95-98) H 03/01/18 19:22 PT/INR, D-dimer PT 11.9 Seconds (9.4-12.1) 03/01/18 16:12 Consult Discharge Plan - Plan Referrals: Mary Beth [Primary Care Provider] -
[2018-03-02] MEDS: *HR* LORazepam 0.5 MG TABLET PO PRN ×2 (14:51→21:40)
[2018-03-02] MEDS: MethylPREDNISolone 40 MG/ML VIAL IVP SCH (14:51)
[2018-03-02] MEDS: Azithromycin 500 MG in D5% in Water 250 ML IVPB SCH (21:41)
[2018-03-03] MEDS: MethylPREDNISolone 40 MG/ML VIAL IVP SCH ×3 (00:11→16:51)
[2018-03-03] MEDS: Ipratropium/Albuterol Neb 3 ML IH SCH ×4 (04:39→21:42)
[2018-03-03 05:24] LABS: Basophils % 0.3 %; Hematocrit 37.8 % (35.3-44.9); Hemoglobin 12.5 g/dL (11.5-15.4); Immature Granulocytes % 0.4 % (0-4); Lymphocytes % 12.2 %; Mean Corpuscular HGB Conc 33.1 g/dL (31.6-35.5); Mean Corpuscular Hemoglobin 29.9 pg (28.0-33.3); Mean Corpuscular Volume 90.4 fL (83.0-100.0); Mean Platelet Volume 10.4 fL (9.4-12.4); Monocytes # 0.3 K/mcL (0.0-1.3); Monocytes % 3.9 %; Neutrophils # 6.5 K/mcL (1.6-8.9); Platelet Count 206 K/mcL (140-400); Red Blood Count 4.18 M/mcL (3.82-4.97); Red Cell Distribution Width 13.1 % (11.5-14.5); Segmented Neutrophils % 83.2 %
[2018-03-03 05:49] LABS: BUN/Creatinine Ratio 26 (6-26); Blood Urea Nitrogen 15 mg/dL (8-23); Calcium 9.6 mg/dL (8.6-10.3); Carbon Dioxide 25 mEq/L (23-29); Chloride 106 mEq/L (98-107); Glucose 187 mg/dL (70-105); Osmolality,Calculated 288 (280-300); Potassium 4.4 mEq/L (3.5-5.1); Sodium 136 mEq/L (136-145); eGFR For African Americans > 60 (> 60); eGFR For Non-African Americans > 60 (> 60)
[2018-03-03] MEDS: *HR* Heparin 5,000 UNIT/ML VIAL SQ SCH ×3 (05:54→20:59)
[2018-03-03] MEDS: Aspirin Enteric Coated 81 MG Tablet PO SCH (08:51)
[2018-03-03] MEDS: cefTRIAXone 1,000 MG in Water for inj. (sterile) 20 ML 10 ML IVP SCH (08:51)
[2018-03-03] MEDS: Metoprolol XL (24 HR) Succ 50 MG TAB.ER.24H PO SCH (08:51)
[2018-03-03] MEDS: *HR* LORazepam 0.5 MG TABLET PO PRN ×3 (08:51→21:00)
[2018-03-03] MEDS: Lisinopril 20 MG TABLET PO SCH (08:51)
[2018-03-03] MEDS: Gabapentin 300 MG CAPSULE PO SCH ×3 (08:51→21:00)
[2018-03-03] MEDS: amLODIPine 5 MG TABLET PO SCH (08:51)
[2018-03-03] MEDS: Insulin LISPRO 300 UNITS/3 ML VIAL SQ SCH ×4 (08:52→21:01)
--- NOTE | 2018-03-03 13:38 | Internal Med Progress Note ---
Date of Encounter: 03/03/18 Time of Encounter: 13:30 - Assessment and plan (1) PNA (pneumonia) Current Visit: Yes Status: Acute Assessment and plan: Reviwed CT of Chest-- RUL PNA mostly bacterial Legionella, Strep - Negative Sputum cx - no growth so far cont empirical abx Rocephin + Azithromycin cont Duoneb Qualifiers: Pneumonia type: due to unspecified organism Laterality: unspecified laterality Lung location: unspecified part of lung Qualified Code(s): J18.9 - Pneumonia, unspecified organism (2) COPD exacerbation Current Visit: Yes Status: Acute Assessment and plan: start tapering steroids Cont Duoneb (3) Chronic respiratory failure with hypoxia Current Visit: Yes Status: Acute Assessment and plan: Back to baseline ..currently on 2 lit O2 cont BiPAP at bed time (4) UTI (urinary tract infection) Current Visit: Yes Status: Acute Assessment and plan: UA looks abnormal Cont empirical abx IV rocephin. follow up on cultures. Qualifiers: Urinary tract infection type: site unspecified Hematuria presence: without hematuria Qualified Code(s): N39.0 - Urinary tract infection, site not specified (5) HTN (hypertension) Current Visit: No Status: Chronic Assessment and plan: stable resumed all home BP meds Qualifiers: Hypertension type: essential hypertension Qualified Code(s): I10 - Essential (primary) hypertension (6) Diabetes Current Visit: No Status: Acute Assessment and plan: Cont Insulin sliding scale. Accucheks. Qualifiers: Diabetes mellitus type: type 2 Diabetes mellitus termite treater helper insulin use: without termite treater helper use Diabetes mellitus complication status: without complication Qualified Code(s): E11.9 - Type 2 diabetes mellitus without complications (7) DVT prophylaxis Current Visit: Yes Status: Acute Assessment and plan: heparin SQ (8) Anxiety Current Visit: Yes Status: Acute Assessment and plan: Cont Ativan PRN - Time Spent With Patient Total time spent is greater than 50% in coordination of care (as documented) at patient's floor/unit and/or counseling patient: - Subjective Interval history: Ms. Rai is a 62 year old female with history of COPD on chronic O2, diabetes , hypertension, obesity, cardiomyopathy status post ICD who presented to the ED with complaints of shortness of breath that has been going on for about 3 days. Pt is a heavy smoker and does smoke 1 PPD. She does c/o cough with expectoration and generalized body pain. Denied any CP. Feels better .SOB also better today. - Constitutional Vitals: Temp Pulse Resp BP Pulse Ox 97.7 F 70 18 139/73 97 03/03/18 12:15 03/03/18 12:15 03/03/18 12:15 03/03/18 12:15 03/03/18 12:15 General appearance: Present: cooperative, A&O X 3, answers questions appropriately - Head Head exam: Present: atraumatic, normal inspection - Neck Neck exam general surgery: Present: supple - Respiratory Respiratory exam: Present: decreased breath sounds, wheezes (mild to moderate). Absent: rales, respiratory distress, rhonchi - Cardiovascular Cardiovascular exam: Present: RRR, +S1, +S2. Absent: tachycardia - GI/Abdominal GI/Abdominal exam: Present: normal bowel sounds, soft. Absent: rebound, rigid, tenderness - Extremities Exam Extremities exam: Absent: calf tenderness, pedal edema, tenderness - Back Exam Back exam: Absent: CVA tenderness (L), CVA tenderness (R) - Neurological Exam Neurological exam: Present: alert, oriented X3 - Psychiatric Psychiatric exam: Present: anxious Internal Medicine: Result - Labs CBC & Chem 7: 03/03/18 05:09 03/03/18 05:09 Labs: Short CBC 03/03/18 Range/Units 05:09 WBC 7.8 D (4.3-11.1) K/mcL Hgb 12.5 (11.5-15.4) g/dL Hct 37.8 (35.3-44.9) % Plt Count 206 (140-400) K/mcL Neutrophils # 6.5 (1.6-8.9) K/mcL BMP 03/03/18 05:09 Sodium 136 Potassium 4.4 Chloride 106 Carbon Dioxide 25 BUN 15 Creatinine 0.58 L Glucose 187 H Calcium 9.6 - ABG Interpretation ABG results: ABG ABG pH 7.34 pH Units (7.32-7.45) 03/01/18 19:22 ABG pCO2 47 mmHg (35-45) H 03/01/18 19:22 ABG pO2 138 mmHg (85-104) H 03/01/18 19:22 ABG O2 Saturation 99 % (95-98) H 03/01/18 19:22 PT/INR, D-dimer PT 11.9 Seconds (9.4-12.1) 03/01/18 16:12 Consult Discharge Plan - Plan Referrals: Mary Beth [Primary Care Provider] -
[2018-03-03] MEDS: Azithromycin 500 MG in D5% in Water 250 ML IVPB SCH (20:59)
[2018-03-03] MEDS: *HR* HYDROcodone/Acet 5/325 mg TABLET PO PRN (21:00)
[2018-03-04] MEDS: *HR* HYDROcodone/Acet 5/325 mg TABLET PO PRN (02:34)
[2018-03-04] MEDS: Ipratropium/Albuterol Neb 3 ML IH SCH ×2 (04:11→11:14)
[2018-03-04] MEDS: *HR* Heparin 5,000 UNIT/ML VIAL SQ SCH (06:37)
[2018-03-04] MEDS: MethylPREDNISolone 40 MG/ML VIAL IVP SCH (06:38)
[2018-03-04] MEDS ORDERED: *HR* HYDROcodone/Acet 5/325 mg TABLET PO PRN (08:41)
[2018-03-04] MEDS: Metoprolol XL (24 HR) Succ 50 MG TAB.ER.24H PO SCH (09:27)
[2018-03-04] MEDS: Gabapentin 300 MG CAPSULE PO SCH (09:28)
[2018-03-04] MEDS: cefTRIAXone 1,000 MG in Water for inj. (sterile) 20 ML 10 ML IVP SCH (09:28)
[2018-03-04] MEDS: amLODIPine 5 MG TABLET PO SCH (09:28)
[2018-03-04] MEDS: *HR* LORazepam 0.5 MG TABLET PO PRN (09:28)
[2018-03-04] MEDS: Lisinopril 20 MG TABLET PO SCH (09:28)
[2018-03-04] MEDS: Aspirin Enteric Coated 81 MG Tablet PO SCH (09:29)
[2018-03-04] MEDS: Insulin LISPRO 300 UNITS/3 ML VIAL SQ SCH ×2 (09:29→11:47)
--- NOTE | 2018-03-04 10:49 | Discharge Summary ---
- NOTES TO OUTPATIENT PROVIDER Notes to Outpatient Provider: f/u with PCP in one week Date of Encounter: 03/04/18 Time of Encounter: 10:46 - Discharge Diagnosis (1) PNA (pneumonia) Priority: Primary Status: Acute Qualifiers: Pneumonia type: due to unspecified organism Laterality: unspecified laterality Lung location: unspecified part of lung Qualified Code(s): J18.9 - Pneumonia, unspecified organism (2) COPD exacerbation Priority: Primary Status: Acute (3) Chronic respiratory failure with hypoxia Priority: Secondary Status: Acute (4) UTI (urinary tract infection) Priority: Secondary Status: Acute Qualifiers: Urinary tract infection type: site unspecified Hematuria presence: without hematuria Qualified Code(s): N39.0 - Urinary tract infection, site not specified (5) HTN (hypertension) Priority: Secondary Status: Chronic Qualifiers: Hypertension type: essential hypertension Qualified Code(s): I10 - Essential (primary) hypertension (6) Diabetes Priority: Secondary Status: Acute Qualifiers: Diabetes mellitus type: type 2 Diabetes mellitus assisted insulin use: without assisted use Diabetes mellitus complication status: without complication Qualified Code(s): E11.9 - Type 2 diabetes mellitus without complications (7) DVT prophylaxis Priority: Secondary Status: Acute (8) Anxiety Priority: Secondary Status: Acute Hospital course: Ms. Rai is a 62 year old female with history of COPD on chronic O2, diabetes , hypertension, obesity, cardiomyopathy status post ICD who presented to the ED with complaints of shortness of breath that has been going on for about 3 days. Pt is a heavy smoker and does smoke 1 PPD. Pt was admitted here with pneumonia and COPD exacerbation. She was sarted on empiricla abx Rocephin and Azithromycin. She was also started on high dose IV steroids. Her symptoms started improving slowly. she feels like she back to baseline today. She does have severe anxiety, so started her on Ativan here. She did c/o dysuria and her UA was abnormal so continue Rocpehin abx here. However her urine cx came back as negative. Pt would like to go home today, so will d/c her home in stable condition. Counseled the pt to quit smoking also placed her on nicotine patch. - Time Spent with Patient Total time spent providing and/or coordinating discharge services: - Discharge Medications Prescriptions: HYDROcodone/Acet 5/325 mg [[place] 5-325 mg] 1 tab PO Q12HR PRN 5 Days #6 tablet PRN Reason: Moderate to Severe Pain Cephalexin [Keflex] 500 mg PO TID #6 capsule LORazepam [Ativan] 0.5 mg PO BID PRN 5 Days #10 tablet PRN Reason: Anxiety PredniSONE [Deltasone] 20 mg PO DAILY #10 tablet Home Medications: Aspirin [Adult Low Dose Aspirin EC] 81 mg PO DAILY 12/29/15 [History] Furosemide [Lasix] 20 mg PO DAILY 12/29/15 [History] Lisinopril [Zestril] 20 mg PO DAILY 12/29/15 [History] metFORMIN [Glucophage] 500 mg PO BIDWM 12/29/15 [History] Atorvastatin [Lipitor] 40 mg PO HS 03/01/18 [History] Gabapentin [Neurontin] 600 mg PO TID 03/01/18 [History] Metoprolol Succinate [Toprol Xl] 100 mg PO DAILY 03/01/18 [History] Paroxetine HCl [Paxil] 20 mg PO DAILY 03/01/18 [History] amLODIPine [Norvasc] 5 mg PO DAILY 03/01/18 [History] Cephalexin [Keflex] 500 mg PO TID #6 capsule 03/04/18 [Rx] HYDROcodone/Acet 5/325 mg [[place] 5-325 mg] 1 tab PO Q12HR PRN 5 Days #6 tablet 03/04/18 [Rx] LORazepam [Ativan] 0.5 mg PO BID PRN 5 Days #10 tablet 03/04/18 [Rx] PredniSONE [Deltasone] 20 mg PO DAILY #10 tablet 03/04/18 [Rx] Allergies/Adverse Reactions: 3 Allergy/AdvReac Type Severity Reaction Status Date / Time venlafaxine [From Effexor] Allergy See Verified 03/01/18 16:23 Comments Date of admission: 03/01/18 22:30 Primary care physician: Mary Beth Consults: 03/03/18 13:28 Consult to Physical Therapy [CONS] Routine Comment: Evaluate, develop and implement POC Reason for Consult: deconditioning Does patient have active BEDREST order?: No Is patient medically & hemodynamically stable?: Yes Patient assessed for mobility or mobilized this visit?: Yes OT [Consult to Occupational Therapy] [CONS] Routine Comment: Evaluate, develop and implement POC Reason for Consult: back pain Does patient have active BEDREST order?: No Is patient medically & hemodynamically stable?: Yes Patient assessed for mobility or mobilized this visit?: Yes - Constitutional Vitals: Temp Pulse Resp BP Pulse Ox 97.6 F 67 22 156/57 98 03/04/18 06:58 03/04/18 06:58 03/04/18 06:58 03/04/18 06:58 03/04/18 09:41 General appearance: Present: cooperative, A&O X 3, answers questions appropriately - Head Head exam: Present: atraumatic, normal inspection - Respiratory Respiratory exam: Present: decreased breath sounds, wheezes (mild). Absent: rales, respiratory distress, rhonchi - Cardiovascular Cardiovascular exam: Present: RRR, +S1, +S2. Absent: tachycardia - GI/Abdominal GI/Abdominal exam: Present: normal bowel sounds, soft. Absent: rebound, rigid, tenderness - Extremities Exam Extremities exam: Absent: calf tenderness, pedal edema, tenderness - Back Exam Back exam: Absent: CVA tenderness (L), CVA tenderness (R) - Neurological Exam Neurological exam: Present: alert, oriented X3 - Patient Status Disposition: Home, Self-Care Condition: Good Overall status at discharge: patient is back to baseline - Discharge Instructions Follow Up With: Mary Beth [Primary Care Provider] - - Diet and Activity Activity: increase activity as tolerated Diet: low salt diet
[2018-03-04 11:08] VITALS: BP 143/83
--- NOTE | 2018-03-04 11:30 | Physician Discharge Referral ---
Home Health/Hosp Referral Info Transfer to: Home Health Provider in Charge Post Discharge: PCP - Diagnosis (1) PNA (pneumonia) Status: Acute (2) COPD exacerbation Status: Acute (3) Chronic respiratory failure with hypoxia Status: Acute (4) UTI (urinary tract infection) Status: Acute (5) HTN (hypertension) Status: Chronic (6) Diabetes Status: Acute (7) DVT prophylaxis Status: Acute (8) Anxiety Status: Acute - Respiratory Orders Smoking Cessation: Smoking cessation has been advised. For more information, call the [place] Tobacco Quit Line at 0-034-WFYG-NOW. - Services Needed Following services are medically necessary services: Nursing, Physical Therapy, Occupational Therapy - Transfer Medications Prescriptions: HYDROcodone/Acet 5/325 mg [[place] 5-325 mg] 1 tab PO Q12HR PRN 5 Days #6 tablet PRN Reason: Moderate to Severe Pain Cephalexin [Keflex] 500 mg PO TID #6 capsule LORazepam [Ativan] 0.5 mg PO BID PRN 5 Days #10 tablet PRN Reason: Anxiety Nicotine Patch [Nicoderm] 21 mg TD DAILY #30 patch.td24 PredniSONE [Deltasone] 20 mg PO DAILY #10 tablet Home Medications: Aspirin [Adult Low Dose Aspirin EC] 81 mg PO DAILY 12/29/15 [History] Furosemide [Lasix] 20 mg PO DAILY 12/29/15 [History] Lisinopril [Zestril] 20 mg PO DAILY 12/29/15 [History] metFORMIN [Glucophage] 500 mg PO BIDWM 12/29/15 [History] Atorvastatin [Lipitor] 40 mg PO HS 03/01/18 [History] Gabapentin [Neurontin] 600 mg PO TID 03/01/18 [History] Metoprolol Succinate [Toprol Xl] 100 mg PO DAILY 03/01/18 [History] Paroxetine HCl [Paxil] 20 mg PO DAILY 03/01/18 [History] amLODIPine [Norvasc] 5 mg PO DAILY 03/01/18 [History] Cephalexin [Keflex] 500 mg PO TID #6 capsule 03/04/18 [Rx] HYDROcodone/Acet 5/325 mg [[place] 5-325 mg] 1 tab PO Q12HR PRN 5 Days #6 tablet 03/04/18 [Rx] LORazepam [Ativan] 0.5 mg PO BID PRN 5 Days #10 tablet 03/04/18 [Rx] Nicotine Patch [Nicoderm] 21 mg TD DAILY #30 patch.td24 03/04/18 [Rx] PredniSONE [Deltasone] 20 mg PO DAILY #10 tablet 03/04/18 [Rx] Allergies/Adverse Reactions: 3 Allergy/AdvReac Type Severity Reaction Status Date / Time venlafaxine [From Effexor] Allergy See Verified 03/01/18 16:23 Comments Certification: Further, I certify that my clinical findings support that this patient is homebound (i.e. absences from home require considerable and taxing effort and are for medical reasons or mandaen services or infrequently or short duration when for other reasons) because: Homebound Reason: Patient requires assistance of a person or device to safely leave home Attestation: My signature below is to certify that this patient is under my care and that I, or nurse practitioner, or a physician's pastry assistant working with me, has a face-to -face encounter with this patient.
[2018-03-04] MEDS ORDERED: Azithromycin 250 MG TABLET PO SCH (21:00)
--- NOTE | 2018-03-05 15:28 | Electrocardiograph Report ---
[place] [address] Test Date: 2018-03-01 Pat Name: Amber Rai Department: 104 Room: [facility] Gender: F Mannequin Mounter: TMR : 1955 Requested By: Hayder Ann Order Number: [id number] Reading MD: Marin Avelar Measurements Intervals [place] Rate: 74 P: 22 [place]: 151 QRS: -87 QRSD: 124 T: 15 QT: 396 QTc: 424 Interpretive Statements ELECTRONIC VENTRICULAR PACEMAKER ABNORMAL RHYTHM ECG Electronically Signed On 03-05-2018 15:26:40 EDT by Marin Avelar
--- NOTE | 2018-03-05 15:39 | Electrocardiograph Report ---
[place] [address] Test Date: 2018-03-01 Pat Name: Amber Rai Department: 104 Room: [facility] Gender: F Superintendent [employer]: TMR : 1955 Requested By: Hayder Ann Order Number: [id number] Reading MD: Marin Avelar Measurements Intervals [place] Rate: 71 P: 47 [place]: 159 QRS: -85 QRSD: 122 T: 2 QT: 402 QTc: 424 Interpretive Statements ELECTRONIC VENTRICULAR PACEMAKER Electronically Signed On 03-05-2018 15:38:23 EDT by Marin Avelar
== END 2018-03-04 14:07 | disposition home or self-care (01) | DRG 190 ==
LOC: EMEROO 16:05 → 2ANU 16:05
PROVIDERS: ADMIT Internal Medicine; ATTEND Internal Medicine

== ENCOUNTER 2018-03-05 10:49 | Inpatient (IN) ==
[2018-03-05] MEDS ORDERED: Ipratropium/Albuterol Neb 3 ML IH ONE ×2 (10:57→12:30)
[2018-03-05 11:09] LABS: Bilirubin,Urine Negative (Negative); Blood,Urine Negative (Negative); Clarity,Urine Clear (Clear); Color,Urine Yellow (Yellow); Glucose,Urine (UA) Normal (Normal); Ketones,Urine Negative (Negative); Leukocyte Esterase,Urine Negative (Negative); Nitrite,Urine Negative (Negative); Protein,Urine Trace mg/dL (Neg-Trace); Specific Gravity,Urine 1.021 (1.010-1.025); Urobilinogen,Urine Normal (Normal)
[2018-03-05 11:12] LABS: Bacteria,Urine None Seen per hpf (None-Few); Hyaline Casts,Urine None Seen per lpf (None-Few); RBC,Urine 0-3 per hpf (0-3); Squamous Epithelial Cell,Urine Moderate per lpf (None-Few); WBC,Urine 0-3 per hpf (0-3)
[2018-03-05 11:15] LABS: VBG HCO3 31 mEq/L (21-27); VBG PCO2 62 mmHg (41-51); VBG PO2 167 mmHg (25-50)
[2018-03-05 11:21] LABS: Basophils % 0.4 %; Eosinophils % 0.1 %; Hematocrit 41.2 % (35.3-44.9); Hemoglobin 13.4 g/dL (11.5-15.4); Immature Granulocytes % 1.8 % (0-4); Lymphocytes # 3.9 K/mcL (0.6-4.6); Lymphocytes % 43.9 %; Mean Corpuscular HGB Conc 32.5 g/dL (31.6-35.5); Mean Corpuscular Hemoglobin 29.6 pg (28.0-33.3); Mean Corpuscular Volume 91.2 fL (83.0-100.0); Mean Platelet Volume 10.2 fL (9.4-12.4); Monocytes # 0.7 K/mcL (0.0-1.3); Monocytes % 7.4 %; Neutrophils # 4.1 K/mcL (1.6-8.9); Platelet Count 224 K/mcL (140-400); Red Blood Count 4.52 M/mcL (3.82-4.97); Red Cell Distribution Width 12.9 % (11.5-14.5); Segmented Neutrophils % 46.4 %
[2018-03-05 11:41] LABS: BUN/Creatinine Ratio 22 (6-26); Blood Urea Nitrogen 14 mg/dL (8-23); Calcium 9.3 mg/dL (8.6-10.3); Carbon Dioxide 30 mEq/L (23-29); Chloride 106 mEq/L (98-107); Glucose 111 mg/dL (70-105); Osmolality,Calculated 293 (280-300); Potassium 3.8 mEq/L (3.5-5.1); Sodium 141 mEq/L (136-145); Troponin I < 0.03 ng/mL (< 0.04); eGFR For African Americans > 60 (> 60); eGFR For Non-African Americans > 60 (> 60)
[2018-03-05 11:57] LABS: Platelet Estimate Normal (Normal); Reactive Lymphocytes Present (Not Present)
--- NOTE | 2018-03-05 11:57 | Emergency Department Note ---
Disposition Clinical Impression: Acute respiratory failure with hypoxia and hypercarbia Pulmonary edema Qualifiers: Chronicity: acute Qualified Code(s): J81.0 - Acute pulmonary edema Disposition: Admitted As Inpatient Condition: Fair Time of Disposition: 13:26 SOB HPI - General Chief Complaint: ED Shortness of Breath/Dyspnea Stated Complaint: DAYANARA/ lethargic Time Seen by Provider: 03/05/18 10:55 Source: EMS Limitations: no limitations Nursing Notes Reviewed: Yes Vital Signs Reviewed: Yes - History of Present Illness 62-year-old female parts ED by EMS in respiratory distress. She was recently admitted to the hospital for pneumonia and discharged yesterday on steroids and antibiotics. Smoking has also been a chronic issue and she was prescribed nicotine but uncertain as to whether she has been compliant with smoking cessation. She arrived in the ED on CPAP per EMS. They found her somewhat somnolent and barely able to order at up or ambulate. She was also hypoxic with an oxygen saturation of 86% on their arrival. She improved during transit following sequential DuoNeb treatments and this remained somewhat somnolent. Denies pain. Continues with coughing. Family not present on arrival. Pt Subjective Complaint: shortness of breath, cough Onset (ago): hour(s) Severity: moderate Consistency/Duration: constant Improves with: medication Worsens with: nothing Known history of: COPD Associated symptoms: Reports: cough Treatment prior to arrival: none Cough present: Yes Sputum production: No Sputum Amount: None - Related Data Home Medications Medication Instructions Recorded Confirmed Aspirin [Adult Low Dose Aspirin EC] 81 mg PO DAILY 12/29/15 03/05/18 Furosemide [Lasix] 20 mg PO DAILY 12/29/15 03/05/18 Lisinopril [Zestril] 20 mg PO DAILY 12/29/15 03/05/18 metFORMIN [Glucophage] 500 mg PO BIDWM 12/29/15 03/05/18 Atorvastatin [Lipitor] 40 mg PO HS 03/01/18 03/05/18 Gabapentin [Neurontin] 600 mg PO TID 03/01/18 03/05/18 Metoprolol Succinate [Toprol Xl] 100 mg PO DAILY 03/01/18 03/05/18 Paroxetine HCl [Paxil] 20 mg PO DAILY 03/01/18 03/05/18 amLODIPine [Norvasc] 5 mg PO DAILY 03/01/18 03/05/18 Previous Rx's Medication Instructions Recorded Cephalexin [Keflex] 500 mg PO TID #6 capsule 03/04/18 HYDROcodone/Acet 5/325 mg [[place] 1 tab PO Q12HR PRN 5 Days #6 tablet 03/04/18 5-325 mg] LORazepam [Ativan] 0.5 mg PO BID PRN 5 Days #10 tablet 03/04/18 Nicotine Patch [Nicoderm] 21 mg TD DAILY #30 patch.td24 03/04/18 PredniSONE [Deltasone] 20 mg PO DAILY #10 tablet 03/04/18 Allergies Allergy/AdvReac Type Severity Reaction Status Date / Time venlafaxine [From Effexor] Allergy See Verified 03/01/18 16:23 Comments Limitations: ROS unobtainable due to patients medical condition Past Medical History - Past Medical History Medical history: Reports: atrial fibrillation, cardiomyopathy, CHF, COPD, diabetes, GERD, hypertension, myocardial infarction Psychiatric history: Reports: no psych history - Social History Smoking Status: Current every day smoker Smokeless Tobacco Status: No Alcohol use: Reports: none Drug use: Reports: marijuana Physical Exam - General Limitations: no limitations General appearance: alert, lethargic - Head Head exam: atraumatic, normocephalic - Eye Eye exam: Present: PERRL - ENT ENT exam: mucous membranes dry - Neck Neck exam: Present: trachea midline - Chest Chest inspection: Present: normal inspection - Respiratory Respiratory exam: Present: respiratory distress, wheezes. Absent: normal lung sounds bilaterally - Cardiovascular Cardiovascular exam: Present: regular rate - Abdominal Exam Abdominal exam: Present: soft, Non-Tender - Expanded Lower Extremity Exam Hip/Pelvis exam: Absent: tenderness Lower leg exam: Present: swelling. Absent: tenderness Ankle exam: Present: swelling - Neurological Exam Neurological exam: Present: other (somnolent) - Psychiatric Psychiatric exam: Present: flat affect - Skin Skin exam: Present: warm, dry Course - Reevaluation(s) Reevaluation #1: Her mental status is substantially improved after being on BiPAP. We will recheck her VBG to assure improvement of her hypercarbia Time: 12:24 Reevaluation #2: D/W Hospitalist to admit The high probability of a clinically significant, sudden or life threatening deterioration of the [cardiopulmonary] system(s) required my full and direct attention, intervention and personal management. The aggregate critical care time was [32] minutes. This time is in addition to time spent performing reported procedures but includes the following: [x] Data Review and interpretation [x] Patient assessment and monitoring of vital signs [x] Documentation [x] Medication orders and management Time: 13:25 Vital Signs Temperature 97.3 F L 03/05/18 10:49 Pulse Rate 103 03/05/18 10:49 Respiratory Rate 32 03/05/18 10:49 Blood Pressure 188/99 03/05/18 10:49 O2 Sat by Pulse Oximetry 100 03/05/18 10:49 Temperature 97.3 F L 03/05/18 10:49 Pulse Rate 63 03/05/18 14:01 Respiratory Rate 24 03/05/18 14:01 Blood Pressure 151/91 03/05/18 14:01 O2 Sat by Pulse Oximetry 98 03/05/18 14:01 Oxygen Delivery Oxygen Delivery Nasal Cannula Shortness of Breath/Dyspnea - Lab Data Result diagrams: 03/05/18 11:00 03/05/18 11:00 Lab Results 03/05/18 03/05/18 03/05/18 Range/Units 10:59 11:00 11:00 WBC 8.9 (4.3-11.1) K/mcL RBC 4.52 (3.82-4.97) M/mcL Hgb 13.4 (11.5-15.4) g/dL Hct 41.2 (35.3-44.9) % MCV 91.2 (83.0-100.0) fL MCH 29.6 (28.0-33.3) pg MCHC 32.5 (31.6-35.5) g/dL RDW 12.9 (11.5-14.5) % Plt Count 224 (140-400) K/mcL MPV 10.2 (9.4-12.4) fL Immature Gran % 1.8 (0-4) % Seg Neutrophils % 46.4 % Lymphocytes % 43.9 % Monocytes % 7.4 % Eosinophils % 0.1 % Basophils % 0.4 % Neutrophils # 4.1 (1.6-8.9) K/mcL Lymphocytes # 3.9 (0.6-4.6) K/mcL Monocytes # 0.7 (0.0-1.3) K/mcL Eosinophils # 0.0 (0.0-0.6) K/mcL Basophils # 0.0 (0.0-0.2) K/mcL Reactive Lymphocytes Present A (Not Present) Platelet Estimate Normal (Normal) VBG pH (7.32-7.42) pH Units VBG pCO2 (41-51) mmHg VBG pO2 (25-50) mmHg VBG HCO3 (21-27) mEq/L Sodium 141 (136-145) mEq/L Potassium 3.8 (3.5-5.1) mEq/L Chloride 106 (98-107) mEq/L Carbon Dioxide 30 H (23-29) mEq/L BUN 14 (8-23) mg/dL Creatinine 0.63 (0.60-1.20) mg/dL Est GFR ( Amer) > 60 (> 60) Est GFR (Non-Af Amer) > 60 (> 60) BUN/Creatinine Ratio 22 (6-26) Glucose 111 H (70-105) mg/dL Calculated Osmolality 293 (280-300) Calcium 9.3 (8.6-10.3) mg/dL Magnesium 2.0 (1.6-2.6) mg/dL Troponin I < 0.03 (< 0.04) ng/mL Urine Color Yellow (Yellow) Urine Clarity Clear (Clear) Urine pH 6.0 (5.0-8.0) pH Units Ur Specific [place] 1.021 (1.010-1.025) Urine Protein Trace (Neg-Trace) mg/dL Urine Glucose (UA) Normal (Normal) mg/dL Urine Ketones Negative (Negative) mg/dL Urine Blood Negative (Negative) Urine Nitrite Negative (Negative) Urine Bilirubin Negative (Negative) Urine Urobilinogen Normal (Normal) mg/dL Ur Leukocyte Esterase Negative (Negative) Urine Microscopic RBC 0-3 (0-3) per hpf Urine Microscopic WBC 0-3 (0-3) per hpf Ur Squamous Epith Cells Moderate H (None-Few) per lpf Urine Bacteria None Seen (None-Few) per hpf Hyaline Casts None Seen (None-Few) per lpf 03/05/18 03/05/18 Range/Units 11:13 13:05 WBC (4.3-11.1) K/mcL RBC (3.82-4.97) M/mcL Hgb (11.5-15.4) g/dL Hct (35.3-44.9) % MCV (83.0-100.0) fL MCH (28.0-33.3) pg MCHC (31.6-35.5) g/dL RDW (11.5-14.5) % Plt Count (140-400) K/mcL MPV (9.4-12.4) fL Immature Gran % (0-4) % Seg Neutrophils % % Lymphocytes % % Monocytes % % Eosinophils % % Basophils % % Neutrophils # (1.6-8.9) K/mcL Lymphocytes # (0.6-4.6) K/mcL Monocytes # (0.0-1.3) K/mcL Eosinophils # (0.0-0.6) K/mcL Basophils # (0.0-0.2) K/mcL Reactive Lymphocytes (Not Present) Platelet Estimate (Normal) VBG pH 7.30 L 7.32 (7.32-7.42) pH Units VBG pCO2 62 H 60 H (41-51) mmHg VBG pO2 167 H 65 H (25-50) mmHg VBG HCO3 31 H 31 H (21-27) mEq/L Sodium (136-145) mEq/L Potassium (3.5-5.1) mEq/L Chloride (98-107) mEq/L Carbon Dioxide (23-29) mEq/L BUN (8-23) mg/dL Creatinine (0.60-1.20) mg/dL Est GFR ( Amer) (> 60) Est GFR (Non-Af Amer) (> 60) BUN/Creatinine Ratio (6-26) Glucose (70-105) mg/dL Calculated Osmolality (280-300) Calcium (8.6-10.3) mg/dL Magnesium (1.6-2.6) mg/dL Troponin I (< 0.04) ng/mL Urine Color (Yellow) Urine Clarity (Clear) Urine pH (5.0-8.0) pH Units Ur Specific [place] (1.010-1.025) Urine Protein (Neg-Trace) mg/dL Urine Glucose (UA) (Normal) mg/dL Urine Ketones (Negative) mg/dL Urine Blood (Negative) Urine Nitrite (Negative) Urine Bilirubin (Negative) Urine Urobilinogen (Normal) mg/dL Ur Leukocyte Esterase (Negative) Urine Microscopic RBC (0-3) per hpf Urine Microscopic WBC (0-3) per hpf Ur Squamous Epith Cells (None-Few) per lpf Urine Bacteria (None-Few) per hpf Hyaline Casts (None-Few) per lpf - EKG Data EKG shows normal: Reports: sinus rhythm Rate: Reports: normal Rhythm: Reports: NSR [place]/QRS: Reports: normal
[2018-03-05] MEDS ORDERED: *HR* LORazepam 2 MG/ML VIAL IVP ONE (12:05)
[2018-03-05 13:07] LABS: VBG HCO3 31 mEq/L (21-27); VBG PCO2 60 mmHg (41-51); VBG PH 7.32 pH Units (7.32-7.42); VBG PO2 65 mmHg (25-50)
[2018-03-05] MEDS ORDERED: Furosemide 40 MG/4 ML VIAL IVP ONE (13:26)
--- NOTE | 2018-03-05 14:16 | Internal Med History&Physical ---
Date of Encounter: 03/05/18 Time of Encounter: 13:30 Internal Medicine - H&P: HPI Chief complaint: Shortness of breath Admitted From: Home History of present illness: Patient is a 62-year-old female with past medical history significant for atrial fibrillation, ischemic cardiomyopathy, O2 dependent COPD (2.5 L), diabetes and hypertension who presents to the ER on 03/05/18 due to shortness of breath. Patient was just recently discharged on 03/04/18 for pneumonia with COPD exacerbation and UTI. She was treated with a 3 day course of IV ceftriaxone and azithromycin in addition to dual nebs and IV steroids. Patient was also started on Ativan for severe anxiety. Patient reports that when she was discharged home, her presenting symptoms of shortness of breath were no better and she wore her CPAP the entire day and the morning of admission. Patient also concerned about her anxiety not being treated properly and requesting anxiety meds other than SSRIs. In the ER, venous blood gas pH 7.3 to and PCO2 60. Chest x-ray showed mild vascular congestion with cardiomegaly. Patient without leukocytosis and afebrile. Patient will be admitted to the medical surgical floor for acute on chronic hypoxic/hypercapnic respiratory failure. Past Med Surg Social Fam HX - Past Medical History Medical history: atrial fibrillation, cardiomyopathy, CHF, COPD, diabetes, GERD , hypertension, myocardial infarction Psychiatric history: no psych history - Social History Smoking Status: Current every day smoker Smokeless Tobacco Status: No Alcohol use: none Drug use: marijuana - Family History Mother Adopted: No Family Member Ethnicity: Non- Living Status: Hx Family Cardiac Disorders: Yes Hx Family Respiratory Disorders: Yes Hx Family Cancer: No Hx Family GI Disorders: No Hx Family Endocrine Disorder: No Hx Family Neuromuscular Disorders: No Hx Family Neurologic Disorders: Yes Hx Family HEENT Disorders: Yes Hx Family Autoimmune Disorders: No Internal Medicine - H&P: Meds Aspirin [Adult Low Dose Aspirin EC] 81 mg PO DAILY 12/29/15 [History] Furosemide [Lasix] 20 mg PO DAILY 12/29/15 [History] Lisinopril [Zestril] 20 mg PO DAILY 12/29/15 [History] metFORMIN [Glucophage] 500 mg PO BIDWM 12/29/15 [History] Atorvastatin [Lipitor] 40 mg PO HS 03/01/18 [History] Gabapentin [Neurontin] 600 mg PO TID 03/01/18 [History] Metoprolol Succinate [Toprol Xl] 100 mg PO DAILY 03/01/18 [History] Paroxetine HCl [Paxil] 20 mg PO DAILY 03/01/18 [History] amLODIPine [Norvasc] 5 mg PO DAILY 03/01/18 [History] Cephalexin [Keflex] 500 mg PO TID #6 capsule 03/04/18 [Rx] HYDROcodone/Acet 5/325 mg [[place] 5-325 mg] 1 tab PO Q12HR PRN 5 Days #6 tablet 03/04/18 [Rx] LORazepam [Ativan] 0.5 mg PO BID PRN 5 Days #10 tablet 03/04/18 [Rx] Nicotine Patch [Nicoderm] 21 mg TD DAILY #30 patch.td24 03/04/18 [Rx] PredniSONE [Deltasone] 20 mg PO DAILY #10 tablet 03/04/18 [Rx] 3 Allergy/AdvReac Type Severity Reaction Status Date / Time venlafaxine [From Effexor] Allergy See Verified 03/01/18 16:23 Comments All Systems PM: A 10-system review of systems was performed and is negative for pertinent findings except as documented above in the HPI. - Constitutional Vitals: Temp Pulse Resp BP Pulse Ox 97.3 F L 63 24 151/91 98 03/05/18 10:49 03/05/18 14:01 03/05/18 14:01 03/05/18 14:01 03/05/18 14:01 General appearance: Present: A&O X 3, no acute distress, obese - Eye Eye exam: Present: normal appearance - ENT ENT exam: Present: mucous membranes moist - Respiratory Respiratory exam: Present: wheezes. Absent: respiratory distress (Bilateral expiratory wheezes), rhonchi - Cardiovascular Cardiovascular exam: Present: RRR, +S1, +S2. Absent: diastolic murmur, gallop, rubs, systolic murmur - GI/Abdominal GI/Abdominal exam: Present: normal bowel sounds, soft, no peritoneal signs. Absent: distended, tenderness - Extremities Exam Extremities exam: Absent: pedal edema - Neurological Exam Neurological exam: Absent: oriented X3 - Psychiatric Psychiatric exam: Present: anxious - Skin Skin exam: Present: normal color Internal Med - H&P Results - Labs CBC & Chem 7: 03/05/18 11:00 03/05/18 11:00 - Assessment and plan (1) Acute respiratory failure with hypoxia and hypercarbia Current Visit: Yes Status: Acute Assessment and plan: Discussed with ER physician who reports that patient was found to be hypoxic by EMS with oxygen saturations in the 80s In the ER, venous blood gas pH 7.3 to and PCO2 60; this x-ray showed cardiomegaly with mild vascular congestion Patient was originally on BiPAP but has now been weaned to 6 L of nasal cannula supplemental oxygenation IV Lasix 40 mg given in the ER Will continue IV diuresis and monitor in addition to dual nebs for COPD exacerbation (2) COPD exacerbation Current Visit: No Status: Acute Assessment and plan: Patient with bilateral diffuse expiratory wheezes on exam. Patient was on BiPAP but has now been clean to 6 L of nasal cannula supplemental oxygenation Will continue dual nebs in addition to starting IV azithromycin for COPD exacerbation (3) Anxiety Current Visit: No Status: Acute Assessment and plan: She complaining of severe anxiety that could be contributing to her shortness of breath Will continue IV Ativan as needed (4) Ischemic cardiomyopathy Current Visit: Yes Status: Acute Assessment and plan: Patient reports of having a ICD placed due to severe CHF with very low ejection fraction Nuclear medicine stress tests on 12/29/15 showed a medium-sized to moderate fixed perfusion defect throughout inferior and apical segments Will continue beta kaylee, BALA inhibitor aspirin and statin (5) Diabetes Current Visit: No Status: Acute Assessment and plan: Blood glucose controlled; will hold metformin and cover with sliding scale insulin Qualifiers: Diabetes mellitus type: type 2 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 insulin 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: without alf use Diabetes mellitus complication status: without complication Qualified Code(s): E11.9 - Type 2 diabetes mellitus without complications (6) HTN (hypertension) Current Visit: No Status: Chronic Assessment and plan: Blood pressure reasonably controlled; continue home medications Qualifiers: Hypertension type: essential hypertension Qualified Code(s): I10 - Essential (primary) hypertension (7) RUBEN (obstructive sleep apnea) Current Visit: Yes Status: Acute Assessment and plan: Continue CPAP at night (8) Obesity Current Visit: Yes Status: Acute Assessment and plan: BMI 41.4 Qualifiers: Body mass index: BMI 40.0-44.9 Qualified Code(s): E66.9 - Obesity, unspecified; Z68.41 - Body mass index (BMI) 40.0-44.9, adult; Z68.41 - Body mass index (BMI) 40.0-44.9, adult; Z68.41 - Body mass index (BMI) 40.0-44.9, adult; Z68.41 - Body mass index (BMI) 40.0-44.9, adult (9) DVT prophylaxis Current Visit: No Status: Acute Assessment and plan: Heparin subcutaneous - Time Spent With Patient Total time spent is greater than 50% in coordination of care (as documented) at patient's floor/unit and/or counseling patient:
[2018-03-05] MEDS ORDERED: Naloxone 0.4 MG/ML INJ IVP PRN (14:36)
[2018-03-05] MEDS ORDERED: Azithromycin 500 MG in D5% in Water 250 ML IVPB SCH (15:00)
[2018-03-05] MEDS: Ipratropium/Albuterol Neb 3 ML IH SCH ×3 (15:24→23:40)
--- NOTE | 2018-03-05 15:56 | Electrocardiograph Report ---
[address] [place], [place] [address] Test Date: 2018-03-05 Pat Name: Amber Rai Department: 102 Room: 2A Gender: F Mover Helper: : 1955 Requested By: Edgar Castellano Order Number: [id number] Reading MD: Ida Chowdhury Measurements Intervals [place] Rate: 66 P: 31 [place]: 122 QRS: -80 QRSD: 129 T: 60 QT: 379 QTc: 392 Interpretive Statements ELECTRONIC VENTRICULAR PACEMAKER Electronically Signed On 03-05-2018 15:54:44 EDT by Ida Chowdhury
[2018-03-05] MEDS: Ketorolac 30 MG/ML VIAL IVP PRN ×2 (16:23→22:14)
[2018-03-05] MEDS: *HR* HYDROcodone/Acet 5/325 mg TABLET PO PRN (19:43)
[2018-03-05] MEDS: Furosemide 20 MG/2 ML VIAL IVP SCH (19:44)
[2018-03-05] MEDS: Gabapentin 300 MG CAPSULE PO SCH (19:44)
[2018-03-05] MEDS: *HR* Heparin 5,000 UNIT/ML VIAL SQ SCH (23:02)
[2018-03-06] MEDS: *HR* LORazepam 2 MG/ML VIAL IVP PRN ×2 (00:44→12:46)
[2018-03-06] MEDS: Ipratropium/Albuterol Neb 3 ML IH SCH ×5 (03:17→20:41)
[2018-03-06] MEDS: *HR* Heparin 5,000 UNIT/ML VIAL SQ SCH ×3 (06:15→21:52)
[2018-03-06 08:08] LABS: BUN/Creatinine Ratio 27 (6-26); Blood Urea Nitrogen 16 mg/dL (8-23); Calcium 8.9 mg/dL (8.6-10.3); Carbon Dioxide 28 mEq/L (23-29); Chloride 103 mEq/L (98-107); Glucose 121 mg/dL (70-105); Osmolality,Calculated 290 (280-300); Potassium 3.3 mEq/L (3.5-5.1); Sodium 139 mEq/L (136-145); eGFR For African Americans > 60 (> 60); eGFR For Non-African Americans > 60 (> 60)
[2018-03-06 08:26] LABS: Hematocrit 38.2 % (35.3-44.9); Hemoglobin 12.3 g/dL (11.5-15.4); Mean Corpuscular HGB Conc 32.2 g/dL (31.6-35.5); Mean Corpuscular Hemoglobin 29.4 pg (28.0-33.3); Mean Corpuscular Volume 91.2 fL (83.0-100.0); Mean Platelet Volume 10.3 fL (9.4-12.4); Platelet Count 160 K/mcL (140-400); Red Blood Count 4.19 M/mcL (3.82-4.97); Red Cell Distribution Width 12.9 % (11.5-14.5)
[2018-03-06] MEDS ORDERED: Levofloxacin 750 MG/150 ML 750 MG/150 ML BAG IVPB SCH (09:00)
[2018-03-06] MEDS: Metoprolol XL (24 HR) Succ 50 MG TAB.ER.24H PO SCH (09:14)
[2018-03-06] MEDS: amLODIPine 5 MG TABLET PO SCH (09:14)
[2018-03-06] MEDS: Aspirin Enteric Coated 81 MG Tablet PO SCH (09:14)
[2018-03-06] MEDS: predniSONE 20 MG TABLET PO SCH (09:14)
[2018-03-06] MEDS: Gabapentin 300 MG CAPSULE PO SCH ×3 (09:14→21:52)
[2018-03-06] MEDS: Lisinopril 20 MG TABLET PO SCH (09:14)
[2018-03-06] MEDS: Furosemide 20 MG/2 ML VIAL IVP SCH ×2 (09:15→17:35)
[2018-03-06] MEDS: Nicotine 21 MG PATCH.TD24 TD SCH (09:15)
[2018-03-06] MEDS ORDERED: Potassium Chloride Elixir 20 MEQ/15 ML UDC PO ONE (11:48)
--- NOTE | 2018-03-06 12:02 | Internal Med Progress Note ---
Date of Encounter: 03/06/18 Time of Encounter: 12:00 - Assessment and plan (1) Acute respiratory failure with hypoxia and hypercarbia Current Visit: Yes Status: Acute Assessment and plan: Discussed with ER physician who reports that patient was found to be hypoxic by EMS with oxygen saturations in the 80s In the ER, venous blood gas pH 7.3 to and PCO2 60; this x-ray showed cardiomegaly with mild vascular congestion Patient continues to be on BIPAP and requires O2 supplementation. continue nebs tseroids and antiiotics. Switch antibiotics to IV. Pulmonary recs appreciated (2) COPD exacerbation Current Visit: No Status: Suspected Assessment and plan: Contniue nebs, steroids and antibioitcs. BIPAP as needed (3) HTN (hypertension) Current Visit: No Status: Chronic Assessment and plan: Blood pressure reasonably controlled; continue home medications Qualifiers: Hypertension type: essential hypertension Qualified Code(s): I10 - Essential (primary) hypertension (4) Diabetes Current Visit: No Status: Acute Assessment and plan: Blood glucose controlled; will hold metformin and cover with sliding scale insulin Qualifiers: Diabetes mellitus type: type 2 Diabetes mellitus superintendent container terminal insulin use: without superintendent container terminal use Diabetes mellitus complication status: without complication Qualified Code(s): E11.9 - Type 2 diabetes mellitus without complications (5) DVT prophylaxis Current Visit: No Status: Acute Assessment and plan: Heparin subcutaneous (6) Anxiety Current Visit: No Status: Acute Assessment and plan: She complaining of severe anxiety that could be contributing to her shortness of breath Will continue IV Ativan as needed (7) RUBEN (obstructive sleep apnea) Current Visit: Yes Status: Acute Assessment and plan: Continue CPAP at night (8) Obesity Current Visit: Yes Status: Acute Assessment and plan: BMI 41.4 Qualifiers: Serious obesity comorbidity presence: with serious comorbidity Body mass index: BMI 40.0-44.9 Qualified Code(s): E66.9 - Obesity, unspecified; Z68.41 - Body mass index (BMI) 40.0-44.9, adult; Z68.41 - Body mass index (BMI) 40.0- 44.9, adult; Z68.41 - Body mass index (BMI) 40.0-44.9, adult; Z68.41 - Body mass index (BMI) 40.0-44.9, adult - Time Spent With Patient Total time spent is greater than 50% in coordination of care (as documented) at patient's floor/unit and/or counseling patient: - Subjective Interval history: No acute events overnight - Constitutional Vitals: Temp Pulse Resp BP Pulse Ox 98.3 F 78 16 121/76 97 03/06/18 11:21 03/06/18 11:21 03/06/18 11:42 03/06/18 11:21 03/06/18 11:42 General appearance: Present: A&O X 3, no acute distress, obese - Head Head exam: Present: atraumatic, normocephalic - Eye Eye exam: Present: PERRL, conjuntiva pink, sclera anicteric Pupils: Present: PERRL - Neck Neck exam general surgery: Present: supple, trachea midline. Absent: lymphadenopathy - Respiratory Respiratory exam: Absent: accessory muscle use, rales, rhonchi, wheezes Additional comments: Coarse rhonchi bilaterally - Cardiovascular Cardiovascular exam: Present: RRR, +S1, +S2. Absent: diastolic murmur, gallop, rubs, systolic murmur - GI/Abdominal GI/Abdominal exam: Present: normal bowel sounds, soft, no peritoneal signs. Absent: distended, tenderness - Extremities Exam Extremities exam: Present: warm, radial pulses palpable and symmetrical. Absent : calf tenderness, cyanotic, pedal edema - Neurological Exam Neurological exam: Present: CN II-XII intact, oriented X3, no focal deficits. Absent: pronater drift, facial droop, speech deficit - Skin Skin exam: Present: dry, intact Internal Medicine: Result - Labs CBC & Chem 7: 03/06/18 07:06 03/06/18 07:06 Labs: Short CBC 03/06/18 Range/Units 07:06 WBC 6.3 (4.3-11.1) K/mcL Hgb 12.3 (11.5-15.4) g/dL Hct 38.2 (35.3-44.9) % Plt Count 160 (140-400) K/mcL BMP 03/06/18 07:06 Sodium 139 Potassium 3.3 L Chloride 103 Carbon Dioxide 28 BUN 16 Creatinine 0.59 L Glucose 121 H Calcium 8.9 Consult Discharge Plan - Plan Referrals: Mary Beth [Primary Care Provider] -
--- NOTE | 2018-03-06 13:02 | Pulmonology Consult Note ---
Date of Encounter: 03/06/18 Time of Encounter: 12:40 Assessment and Plan (1) Acute respiratory failure with hypoxia and hypercarbia Current Visit: Yes Status: Acute Patient with significant cardiovascular disease and presenting with acute on chronic respiratory failure which is multifactorial and based on chest x-ray this is most likely from pulmonary edema which could be diastolic dysfunction and diuresis is recommended as much as possible. Noninvasive ventilation is recommended and patient is tolerating checked. She also recently quit smoking and I expect if she does not smoke again her symptoms would improve. (2) COPD exacerbation Current Visit: No Status: Suspected Patient is on appropriate treatment and added Symbicort. Recommend: Systemic steroid daily with plan to taper over 2 weeks To complete 5 day course or current antibiotic is acceptable Schedule DuoNeb's while inpatient every 6 hours Patient should have ongoing nebulizer with SEBLE/DARIEN solution to be used q6 Hours Recommend starting Symbicort 160/4.52 puffs twice a day Walking pulse oximetry study at discharge Outpatient pulmonary follow-up 2-4 weeks at the time of discharge for further evaluation (3) RUBEN (obstructive sleep apnea) Current Visit: Yes Status: Acute Patient needs to be followed that this patient Thank you for consultation and please call for any questions History of Present Illness Consult date: 03/06/18 Requesting physician: Aicha Olvera Reason for consult: COPD Chief complaint: Shortness of breath History of present illness: This is pleasant 62-year-old female with significant history of smoking tobacco and she quit smoking about 7 days ago was recently discharged from the hospital for similar symptoms and she lives by herself at home. Patient is on home oxygen around 3 L/m and she is requiring about the same flow rate. Patient stated she uses Spiriva and Advair at home and she also has history of obstructive sleep apnea and she is on CPAP. Patient stated that she was having more shortness of breath and had chest x-ray with evidence of vascular congestion. She is feeling better and she feels BiPAP is helping her symptoms. She denies any fever or chills and denies any significant changes from her baseline wheezing and no hemoptysis or any significant chest pain. 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 Past Med Surg Social Fam HX - Past Medical History Medical history: atrial fibrillation, cardiomyopathy, CHF, COPD, diabetes, GERD , hypertension, myocardial infarction Psychiatric history: no psych history - Social History Smoking Status: Current every day smoker Smokeless Tobacco Status: No Alcohol use: none Drug use: marijuana - Family History Mother Adopted: No Family Member Ethnicity: Non- Living Status: Hx Family Cardiac Disorders: Yes Hx Family Respiratory Disorders: Yes Hx Family Cancer: No Hx Family GI Disorders: No Hx Family Endocrine Disorder: No Hx Family Neuromuscular Disorders: No Hx Family Neurologic Disorders: Yes Hx Family HEENT Disorders: Yes Hx Family Autoimmune Disorders: No Medications and Allergies Aspirin [Adult Low Dose Aspirin EC] 81 mg PO DAILY 12/29/15 [History] Furosemide [Lasix] 20 mg PO DAILY 12/29/15 [History] Lisinopril [Zestril] 20 mg PO DAILY 12/29/15 [History] metFORMIN [Glucophage] 500 mg PO BIDWM 12/29/15 [History] Atorvastatin [Lipitor] 40 mg PO HS 03/01/18 [History] Gabapentin [Neurontin] 600 mg PO TID 03/01/18 [History] Metoprolol Succinate [Toprol Xl] 100 mg PO DAILY 03/01/18 [History] Paroxetine HCl [Paxil] 20 mg PO DAILY 03/01/18 [History] amLODIPine [Norvasc] 5 mg PO DAILY 03/01/18 [History] Cephalexin [Keflex] 500 mg PO TID #6 capsule 03/04/18 [Rx] HYDROcodone/Acet 5/325 mg [[place] 5-325 mg] 1 tab PO Q12HR PRN 5 Days #6 tablet 03/04/18 [Rx] LORazepam [Ativan] 0.5 mg PO BID PRN 5 Days #10 tablet 03/04/18 [Rx] Nicotine Patch [Nicoderm] 21 mg TD DAILY #30 patch.td24 03/04/18 [Rx] PredniSONE [Deltasone] 20 mg PO DAILY #10 tablet 03/04/18 [Rx] 3 Allergy/AdvReac Type Severity Reaction Status Date / Time venlafaxine [From Effexor] Allergy See Verified 03/01/18 16:23 Comments All Systems: The remainder of the systems were reviewed and are negative Physical Examination Vital Signs: Vital Signs, Last 4 Hours Temp Pulse Resp BP Pulse Ox 03/06/18 11:42 16 97 03/06/18 11:21 98.3 F 78 16 121/76 97 General appearance: no acute distress Eyes: nonicteric Mallampati (class): 4 Neck: supple Effort: mildly labored Inspection: other (Obese) Auscultation: bilateral: rhonchi Percussion: bilateral: not dull Cardiovascular: regular rate and rhythm Gastrointestinal: normoactive bowel sounds, non-distended Extremities: no cyanosis, edema normal mental status, non-focal exam mood appropriate Results - Laboratory Findings CBC and BMP: 03/06/18 07:06 03/06/18 07:06 Abnormal lab findings: Abnormal lab results Reactive Lymphocytes Present (Not Present) A 03/05/18 11:00 VBG pCO2 60 mmHg (41-51) H 03/05/18 13:05 VBG pO2 65 mmHg (25-50) H 03/05/18 13:05 VBG HCO3 31 mEq/L (21-27) H 03/05/18 13:05 Potassium 3.3 mEq/L (3.5-5.1) L 03/06/18 07:06 Creatinine 0.59 mg/dL (0.60-1.20) L 03/06/18 07:06 BUN/Creatinine Ratio 27 (6-26) H 03/06/18 07:06 Glucose 121 mg/dL (70-105) H 03/06/18 07:06 POC Glucose 166 mg/dL (70-99) H 03/05/18 19:55 Ur Squamous Epith Cells Moderate per lpf (None-Few) H 03/05/18 10:59 - Diagnostic Findings Chest x-ray: report reviewed, image reviewed - Clinical Findings Intake & Output: Intake & Output 03/05/18 03/06/18 03/06/18 23:59 07:59 15:59 Intake Total 100 / 350 150 / 150 240 / 240 Output Total 500 / 500 Balance 100 / -1850 -350 / -350 240 / 240 Weight 93.9 kg Consult Discharge Plan - Plan Referrals: Mary Beth [Primary Care Provider] -
[2018-03-06] MEDS ORDERED: Azithromycin 250 MG TABLET PO SCH (15:00)
[2018-03-06] MEDS: *HR* HYDROcodone/Acet 5/325 mg TABLET PO PRN (17:34)
[2018-03-06] MEDS: Budesonide/Formoterol 160/4.5 MDI IH SCH (20:40)
[2018-03-06] MEDS: Ketorolac 30 MG/ML VIAL IVP PRN (21:52)
[2018-03-07] MEDS: Ipratropium/Albuterol Neb 3 ML IH SCH ×6 (00:06→20:26)
[2018-03-07] MEDS: *HR* Heparin 5,000 UNIT/ML VIAL SQ SCH ×3 (04:30→21:58)
[2018-03-07] MEDS: *HR* HYDROcodone/Acet 5/325 mg TABLET PO PRN ×2 (04:30→21:57)
[2018-03-07] MEDS: *HR* LORazepam 2 MG/ML VIAL IVP PRN ×2 (04:30→16:42)
[2018-03-07] MEDS: Budesonide/Formoterol 160/4.5 MDI IH SCH ×2 (07:41→20:26)
--- NOTE | 2018-03-07 08:46 | Internal Med Progress Note ---
Date of Encounter: 03/07/18 Time of Encounter: 08:30 - Assessment and plan (1) Acute respiratory failure with hypoxia and hypercarbia Current Visit: Yes Status: Acute Assessment and plan: In the ER, venous blood gas pH 7.3 to and PCO2 60; chest x-ray showed cardiomegaly with mild vascular congestion Patient continues to be on BIPAP and requires O2 supplementation. continue nebs tseroids and antiiotics. Switch antibiotics to IV. Seen by pulmonary who recommend current management with diuresis. Will continue to monitor (2) Diastolic CHF Current Visit: Yes Status: Acute Assessment and plan: Acute diastolic CHF. O diuresis with IV lasix,. Monitor ins and outs Qualifiers: Heart failure chronicity: acute Qualified Code(s): I50.31 - Acute diastolic (congestive) heart failure (3) COPD exacerbation Current Visit: No Status: Suspected Assessment and plan: Contniue nebs, steroids and antibioitcs. BIPAP as needed (4) HTN (hypertension) Current Visit: No Status: Chronic Assessment and plan: Blood pressure reasonably controlled; continue home medications Qualifiers: Hypertension type: essential hypertension Qualified Code(s): I10 - Essential (primary) hypertension (5) Diabetes Current Visit: No Status: Acute Assessment and plan: Blood glucose controlled; will hold metformin and cover with sliding scale insulin Qualifiers: Diabetes mellitus type: type 2 Diabetes mellitus senior living insulin use: without senior living use Diabetes mellitus complication status: without complication Qualified Code(s): E11.9 - Type 2 diabetes mellitus without complications (6) DVT prophylaxis Current Visit: No Status: Acute Assessment and plan: Heparin subcutaneous (7) Anxiety Current Visit: No Status: Acute (8) RUBEN (obstructive sleep apnea) Current Visit: Yes Status: Acute Assessment and plan: Continue CPAP at night (9) Obesity Current Visit: Yes Status: Acute Assessment and plan: BMI 41.4 - Time Spent With Patient Total time spent is greater than 50% in coordination of care (as documented) at patient's floor/unit and/or counseling patient: - Subjective Interval history: No acute events overnight - Constitutional Vitals: Temp Pulse Resp BP Pulse Ox 97.6 F 60 15 157/73 96 03/07/18 07:16 03/07/18 07:16 03/07/18 07:16 03/07/18 07:16 05/10/18 07:16 General appearance: Present: A&O X 3, no acute distress, obese - Head Head exam: Present: atraumatic, normocephalic - Eye Eye exam: Present: PERRL, conjuntiva pink, sclera anicteric Pupils: Present: PERRL - Neck Neck exam general surgery: Present: supple, trachea midline. Absent: lymphadenopathy - Respiratory Respiratory exam: Present: CTAB. Absent: accessory muscle use, rales, rhonchi, wheezes - Cardiovascular Cardiovascular exam: Present: RRR, +S1, +S2. Absent: diastolic murmur, gallop, rubs, systolic murmur - GI/Abdominal GI/Abdominal exam: Present: normal bowel sounds, soft, no peritoneal signs. Absent: distended, tenderness - Extremities Exam Extremities exam: Present: warm, radial pulses palpable and symmetrical. Absent : calf tenderness, cyanotic, pedal edema - Neurological Exam Neurological exam: Present: CN II-XII intact, oriented X3, no focal deficits. Absent: pronater drift, facial droop, speech deficit - Skin Skin exam: Present: dry, intact Internal Medicine: Result - Labs CBC & Chem 7: 03/06/18 07:06 03/06/18 07:06 Labs: Short CBC 03/06/18 Range/Units 07:06 WBC 6.3 (4.3-11.1) K/mcL Hgb 12.3 (11.5-15.4) g/dL Hct 38.2 (35.3-44.9) % Plt Count 160 (140-400) K/mcL Consult Discharge Plan - Plan Referrals: Mary Beth [Primary Care Provider] -
[2018-03-07] MEDS: Lisinopril 20 MG TABLET PO SCH (09:02)
[2018-03-07] MEDS: levoFLOXacin 750 MG TABLET PO SCH (09:02)
[2018-03-07] MEDS: predniSONE 20 MG TABLET PO SCH (09:02)
[2018-03-07] MEDS: Metoprolol XL (24 HR) Succ 50 MG TAB.ER.24H PO SCH (09:02)
[2018-03-07] MEDS: Gabapentin 300 MG CAPSULE PO SCH ×3 (09:03→21:57)
[2018-03-07] MEDS: amLODIPine 5 MG TABLET PO SCH (09:03)
[2018-03-07] MEDS: Aspirin Enteric Coated 81 MG Tablet PO SCH (09:03)
[2018-03-07] MEDS: Furosemide 20 MG/2 ML VIAL IVP SCH ×2 (09:03→16:42)
[2018-03-07] MEDS: Nicotine 21 MG PATCH.TD24 TD SCH (09:03)
[2018-03-07] MEDS ORDERED: Dextrose Gel 15 GM/37.5 ML TUBE PO PRN ×2 (13:18)
[2018-03-07] MEDS ORDERED: D5% in Water 1,000 ML IVC PRN (13:18)
[2018-03-07] MEDS ORDERED: *HR* Dextrose 50 % in Water (Syg) 50 ML SYRINGE IVP PRN (13:18)
[2018-03-07] MEDS: Insulin LISPRO 300 UNITS/3 ML VIAL SQ SCH (16:43)
[2018-03-07] MEDS ORDERED: Insulin LISPRO 300 UNITS/3 ML VIAL SQ SCH (21:00)
[2018-03-08] MEDS: Ipratropium/Albuterol Neb 3 ML IH SCH ×4 (00:19→11:00)
[2018-03-08] MEDS: *HR* LORazepam 2 MG/ML VIAL IVP PRN (05:38)
[2018-03-08] MEDS: *HR* Heparin 5,000 UNIT/ML VIAL SQ SCH (05:39)
[2018-03-08] MEDS: Insulin LISPRO 300 UNITS/3 ML VIAL SQ SCH ×2 (07:38→12:06)
[2018-03-08] MEDS: Budesonide/Formoterol 160/4.5 MDI IH SCH (07:42)
[2018-03-08] MEDS ORDERED: Potassium Chloride Elixir 20 MEQ/15 ML UDC PO ONE (08:30)
--- NOTE | 2018-03-08 08:36 | Discharge Summary ---
Date of Encounter: 03/08/18 Time of Encounter: 08:30 - Discharge Diagnosis (1) Acute respiratory failure with hypoxia and hypercarbia Priority: Primary Status: Acute Assessment and Plan: Patient came in acute SOB and wheezing. In the ER, venous blood gas pH 7.3 to and PCO2 60; chest x-ray showed cardiomegaly with mild vascular congestion Patient was treated with BIPAP and required O2 supplementation She was also started on nebs steroids and antibiotics. She made an imrvement with this treatment regimen. she was also seen by pulmonary who recommended diuresing with IV lasix for acute diastolic CHF. With improvement in her symptoms, she was discharged home in a stable condition. She was discharged on 2L of oxygen due to increasing oxygen requirements (2) Diastolic CHF Priority: Secondary Status: Acute Assessment and Plan: Acute diastolic CHF. O diuresis with IV lasix,. Monitor ins and outs Qualifiers: Heart failure chronicity: acute Qualified Code(s): I50.31 - Acute diastolic (congestive) heart failure (3) COPD exacerbation Priority: Secondary Status: Suspected Assessment and Plan: Contniue nebs, steroids and antibioitcs. BIPAP as needed (4) HTN (hypertension) Priority: Secondary Status: Chronic Assessment and Plan: Blood pressure reasonably controlled; continue home medications Qualifiers: Hypertension type: essential hypertension Qualified Code(s): I10 - Essential (primary) hypertension (5) Diabetes Priority: Secondary Status: Acute Assessment and Plan: Blood glucose controlled; will hold metformin and cover with sliding scale insulin Qualifiers: Diabetes mellitus type: type 2 Diabetes mellitus chcf insulin use: without chcf use Diabetes mellitus complication status: without complication Qualified Code(s): E11.9 - Type 2 diabetes mellitus without complications (6) DVT prophylaxis Priority: Secondary Status: Acute Assessment and Plan: Heparin subcutaneous (7) Anxiety Priority: Secondary Status: Acute Assessment and Plan: She complaining of severe anxiety that could be contributing to her shortness of breath Will continue IV Ativan as needed (8) RUBEN (obstructive sleep apnea) Priority: Secondary Status: Acute Assessment and Plan: Continue CPAP at night (9) Obesity Priority: Secondary Status: Acute Assessment and Plan: BMI 41.4 Qualifiers: Serious obesity comorbidity presence: with serious comorbidity Body mass index: BMI 40.0-44.9 Qualified Code(s): E66.9 - Obesity, unspecified; Z68.41 - Body mass index (BMI) 40.0-44.9, adult Hospital course: Ms. Rai is a 62 year old female - Time Spent with Patient Total time spent providing and/or coordinating discharge services: - Discharge Medications Prescriptions: HYDROcodone/Acet 5/325 mg [[place] 5-325 mg] 1 tab PO Q12HR PRN 5 Days #10 tablet PRN Reason: Moderate to Severe Pain Furosemide [Lasix] 20 mg PO DAILY #60 tablet Home Medications: Aspirin [Adult Low Dose Aspirin EC] 81 mg PO DAILY 12/29/15 [History] Lisinopril [Zestril] 20 mg PO DAILY 12/29/15 [History] metFORMIN [Glucophage] 500 mg PO BIDWM 12/29/15 [History] Atorvastatin [Lipitor] 40 mg PO HS 03/01/18 [History] Gabapentin [Neurontin] 600 mg PO TID 03/01/18 [History] Metoprolol Succinate [Toprol Xl] 100 mg PO DAILY 03/01/18 [History] Paroxetine HCl [Paxil] 20 mg PO DAILY 03/01/18 [History] amLODIPine [Norvasc] 5 mg PO DAILY 03/01/18 [History] Cephalexin [Keflex] 500 mg PO TID #6 capsule 03/04/18 [Rx] LORazepam [Ativan] 0.5 mg PO BID PRN 5 Days #10 tablet 03/04/18 [Rx] Nicotine Patch [Nicoderm] 21 mg TD DAILY #30 patch.td24 03/04/18 [Rx] PredniSONE [Deltasone] 20 mg PO DAILY #10 tablet 03/04/18 [Rx] Furosemide [Lasix] 20 mg PO DAILY #60 tablet 03/08/18 [Rx] HYDROcodone/Acet 5/325 mg [[place] 5-325 mg] 1 tab PO Q12HR PRN 5 Days #10 tablet 03/08/18 [Rx] Allergies/Adverse Reactions: 3 Allergy/AdvReac Type Severity Reaction Status Date / Time venlafaxine [From Effexor] Allergy See Verified 03/01/18 16:23 Comments Date of admission: 03/05/18 19:01 Primary care physician: Mary Beth Consults: 03/06/18 12:03 Consult to Pulmonology [CONS] Routine Consulting Provider: [facility] Reason for Consult: acute hypoxic hypercapneic respiratory failure Call Completed: Yes - Constitutional Vitals: Temp Pulse Resp BP Pulse Ox 98.0 F 71 18 148/84 95 03/08/18 07:23 03/08/18 07:23 03/08/18 07:44 03/08/18 07:23 03/08/18 07:44 General appearance: Present: A&O X 3, no acute distress, obese - Head Head exam: Present: atraumatic, normocephalic - Eye Eye exam: Present: PERRL, conjuntiva pink, sclera anicteric Pupils: Present: PERRL - Neck Neck exam general surgery: Present: supple, trachea midline. Absent: lymphadenopathy - Respiratory Respiratory exam: Present: CTAB. Absent: accessory muscle use, rales, rhonchi, wheezes - Cardiovascular Cardiovascular exam: Present: RRR, +S1, +S2. Absent: diastolic murmur, gallop, rubs, systolic murmur - GI/Abdominal GI/Abdominal exam: Present: normal bowel sounds, soft, no peritoneal signs. Absent: distended, tenderness - Extremities Exam Extremities exam: Present: warm, radial pulses palpable and symmetrical. Absent : calf tenderness, cyanotic, pedal edema - Neurological Exam Neurological exam: Present: CN II-XII intact, oriented X3, no focal deficits. Absent: pronater drift, facial droop, speech deficit - Skin Skin exam: Present: dry, intact - Patient Status Disposition: Home, Self-Care Condition: Good - Discharge Instructions Instructions: Furosemide (By mouth), Hydrocodone/Acetaminophen (By mouth), Pneumonia (DC) Follow Up With: Mary Beth [Primary Care Provider] - 03/12/18 9:00 am (Please follow up as schedule...)
[2018-03-08] MEDS: Metoprolol XL (24 HR) Succ 50 MG TAB.ER.24H PO SCH (08:57)
[2018-03-08] MEDS: Gabapentin 300 MG CAPSULE PO SCH (08:57)
[2018-03-08] MEDS: Lisinopril 20 MG TABLET PO SCH (08:57)
[2018-03-08] MEDS: predniSONE 20 MG TABLET PO SCH (08:57)
[2018-03-08] MEDS: amLODIPine 5 MG TABLET PO SCH (08:58)
[2018-03-08] MEDS: levoFLOXacin 750 MG TABLET PO SCH (08:58)
[2018-03-08] MEDS: Aspirin Enteric Coated 81 MG Tablet PO SCH (08:58)
[2018-03-08] MEDS: Furosemide 20 MG/2 ML VIAL IVP SCH (08:58)
[2018-03-08] MEDS: Nicotine 21 MG PATCH.TD24 TD SCH (08:58)
[2018-03-08] MEDS: *HR* HYDROcodone/Acet 5/325 mg TABLET PO PRN (09:07)
--- NOTE | 2018-03-08 11:11 | Physician Discharge Referral ---
- Diagnosis (1) Acute respiratory failure with hypoxia and hypercarbia Status: Acute (2) Diastolic CHF Status: Acute (3) COPD exacerbation Status: Suspected (4) HTN (hypertension) Status: Chronic (5) Diabetes Status: Acute (6) DVT prophylaxis Status: Acute (7) Anxiety Status: Acute (8) RUBEN (obstructive sleep apnea) Status: Acute (9) Obesity Status: Acute - Respiratory Orders Smoking Cessation: Smoking cessation has been advised. For more information, call the [place] [employer] Quit Line at 7-920-SPKG-NOW. - Diet/Nutrition Diet/Nutrition Orders: Cardiac - Activity Activity Orders: Ambulate - Services Needed Following services are medically necessary services: Nursing, Home Health Aide, Physical Therapy - Transfer Medications Prescriptions: HYDROcodone/Acet 5/325 mg [[place] 5-325 mg] 1 tab PO Q12HR PRN 5 Days #10 tablet PRN Reason: Moderate to Severe Pain Furosemide [Lasix] 20 mg PO DAILY #60 tablet Home Medications: Aspirin [Adult Low Dose Aspirin EC] 81 mg PO DAILY 12/29/15 [History] Lisinopril [Zestril] 20 mg PO DAILY 12/29/15 [History] metFORMIN [Glucophage] 500 mg PO BIDWM 12/29/15 [History] Atorvastatin [Lipitor] 40 mg PO HS 03/01/18 [History] Gabapentin [Neurontin] 600 mg PO TID 03/01/18 [History] Metoprolol Succinate [Toprol Xl] 100 mg PO DAILY 03/01/18 [History] Paroxetine HCl [Paxil] 20 mg PO DAILY 03/01/18 [History] amLODIPine [Norvasc] 5 mg PO DAILY 03/01/18 [History] Cephalexin [Keflex] 500 mg PO TID #6 capsule 03/04/18 [Rx] LORazepam [Ativan] 0.5 mg PO BID PRN 5 Days #10 tablet 03/04/18 [Rx] Nicotine Patch [Nicoderm] 21 mg TD DAILY #30 patch.td24 03/04/18 [Rx] PredniSONE [Deltasone] 20 mg PO DAILY #10 tablet 03/04/18 [Rx] Furosemide [Lasix] 20 mg PO DAILY #60 tablet 03/08/18 [Rx] HYDROcodone/Acet 5/325 mg [[place] 5-325 mg] 1 tab PO Q12HR PRN 5 Days #10 tablet 03/08/18 [Rx] Allergies/Adverse Reactions: 3 Allergy/AdvReac Type Severity Reaction Status Date / Time venlafaxine [From Effexor] Allergy See Verified 03/01/18 16:23 Comments Certification: Further, I certify that my clinical findings support that this patient is homebound (i.e. absences from home require considerable and taxing effort and are for medical reasons or taoist services or infrequently or short duration when for other reasons) because: Homebound Reason: Patient requires assistance of a person or device to safely leave home Attestation: My signature below is to certify that this patient is under my care and that I, or nurse practitioner, or a physician's logistics assistant working with me, has a face-to -face encounter with this patient.
[2018-03-08 11:29] VITALS: BP 113/64
== END 2018-03-08 13:13 | disposition home or self-care (01) | DRG 291 ==
LOC: 3BNU 10:49 → EMEROO 10:49 → 3BNU 13:45 → 2ANU 13:52
PROVIDERS: ADMIT Hospitalist; ATTEND Hospitalist

== ENCOUNTER 2019-09-18 18:01 | Inpatient (IN) ==
[2019-09-18] MEDS ORDERED: 0.9 % Sodium Chloride 1,000 ML ONE (18:16)
[2019-09-18] MEDS: 0.9 % Sodium Chloride 1,000 ML IVC SCH ×2 (18:17→19:59)
[2019-09-18 18:36] LABS: Bilirubin,Urine Negative (Negative); Blood,Urine Large (Negative); Clarity,Urine Turbid (Clear); Color,Urine Dark Yellow (Yellow); Glucose,Urine (UA) Normal (Normal); Ketones,Urine Negative (Negative); Leukocyte Esterase,Urine Large (Negative); Nitrite,Urine Positive (Negative); PH,Urine 5.5 pH Units (5.0-8.0); Protein,Urine 100 mg/dL (Neg-Trace); Specific Gravity,Urine 1.017 (1.010-1.025); Urobilinogen,Urine Normal (Normal)
[2019-09-18 18:43] LABS: Bacteria,Urine Many per hpf (None-Few); Hyaline Casts,Urine None Seen per lpf (None-Few); RBC,Urine 50-100 per hpf (0-3); Squamous Epithelial Cell,Urine Many per lpf (None-Few); WBC,Urine TNTC per hpf (0-3)
[2019-09-18 18:50] LABS: Basophils % 0.3 %; Eosinophils % 0.1 %; Hematocrit 36.6 % (35.3-44.9); Hemoglobin 12.6 g/dL (11.5-15.4); Immature Granulocytes % 0.3 % (0-4); Lymphocytes # 0.9 K/mcL (0.6-4.6); Lymphocytes % 8.1 %; Mean Corpuscular HGB Conc 34.4 g/dL (31.6-35.5); Mean Corpuscular Hemoglobin 29.4 pg (28.0-33.3); Mean Corpuscular Volume 85.5 fL (83.0-100.0); Monocytes % 8.5 %; Neutrophils # 9.6 K/mcL (1.6-8.9); Platelet Count 185 K/mcL (140-400); Red Blood Count 4.28 M/mcL (3.82-4.97); Red Cell Distribution Width 12.4 % (11.5-14.5); Segmented Neutrophils % 82.7 %; White Blood Count 11.6 K/mcL (4.3-11.1)
[2019-09-18] MEDS ORDERED: cefTRIAXone 1,000 MG in 0.9 % Sodium Chloride Mini Bag 100 ML IVPB ONE (18:56)
[2019-09-18 19:10] LABS: Alanine Aminotransferase 9 Units/L (7-52); Albumin 4.2 g/dL (3.5-5.7); Albumin/Globulin Ratio 1.4 (1.1-2.2); Alkaline Phosphatase 55 Units/L (34-104); Aspartate Amino Transferase 12 Units/L (13-39); BUN/Creatinine Ratio 14 (6-26); Bilirubin,Direct 0.2 mg/dL (0.0-0.2); Bilirubin,Indirect 0.8 mg/dL (0.0-1.0); Blood Urea Nitrogen 11 mg/dL (8-23); Calcium 9.7 mg/dL (8.6-10.3); Carbon Dioxide 23 mEq/L (23-29); Chloride 102 mEq/L (98-107); Globulin 2.9 g/dL (2.4-3.5); Glucose 162 mg/dL (70-105); Magnesium 1.7 mg/dL (1.6-2.6); Osmolality,Calculated 281 (280-300); Potassium 3.4 mEq/L (3.5-5.1); Sodium 134 mEq/L (136-145); Total Protein 7.1 g/dL (6.4-8.9); Troponin I 0.03 ng/mL (< 0.04); eGFR For African Americans > 60 (> 60); eGFR For Non-African Americans > 60 (> 60)
[2019-09-18] MEDS ORDERED: hydrOXYzine pamoate 25 MG CAPSULE PO PRN (19:33)
[2019-09-18] MEDS ORDERED: Isovue-370 500 ML BOTTLE IVP ONE (19:39)
[2019-09-18] MEDS ORDERED: Ondansetron 4 MG/2 ML VIAL IVP PRN (19:40)
[2019-09-18] MEDS ORDERED: Ketorolac 30 MG/ML VIAL IVP ONE ×2 (19:40→21:52)
[2019-09-18] MEDS ORDERED: Naloxone 0.4 MG/ML INJ IVP PRN (19:47)
[2019-09-18] MEDS ORDERED: Dextrose Gel 15 GM/37.5 ML TUBE PO PRN ×2 (19:51)
[2019-09-18] MEDS ORDERED: *HR* Dextrose 50 % in Water (Syg) 50 ML SYRINGE IVP PRN (19:51)
[2019-09-18] MEDS ORDERED: Ipratropium/Albuterol Neb 3 ML IH PRN (19:54)
[2019-09-18] MEDS ORDERED: Metoclopramide 10 MG/2 ML VIAL IVP ONE (20:38)
[2019-09-18] MEDS: Ringers Solution, Lactated 1,000 ML IVC SCH (22:14)
[2019-09-18] MEDS: Insulin LISPRO 300 UNITS/3 ML VIAL SQ SCH (22:21)
[2019-09-18] MEDS: Budesonide/Formoterol 160/4.5 1 PUFF INH IH SCH (22:40)
[2019-09-18] MEDS: Gabapentin 300 MG CAPSULE PO SCH (23:03)
[2019-09-18] MEDS: *HR* Heparin 5,000 UNIT/ML VIAL SQ SCH (23:04)
[2019-09-19] MEDS ORDERED: 0.9 % Sodium Chloride 1,000 ML IVC ONE (03:02)
[2019-09-19] MEDS: Ringers Solution, Lactated 1,000 ML IVC SCH (05:53)
[2019-09-19] MEDS: *HR* Heparin 5,000 UNIT/ML VIAL SQ SCH ×3 (05:57→20:38)
[2019-09-19] MEDS ORDERED: Potassium Chloride Elixir 20 MEQ/15 ML UDC PO ONE (06:00)
[2019-09-19] MEDS ORDERED: Tiotropium 18 MCG inhalation IH SCH (07:00)
[2019-09-19 07:06] LABS: BUN/Creatinine Ratio 14 (6-26); Blood Urea Nitrogen 11 mg/dL (8-23); Calcium 8.3 mg/dL (8.6-10.3); Carbon Dioxide 21 mEq/L (23-29); Chloride 109 mEq/L (98-107); Glucose 166 mg/dL (70-105); Osmolality,Calculated 293 (280-300); Potassium 3.7 mEq/L (3.5-5.1); Sodium 140 mEq/L (136-145); eGFR For African Americans > 60 (> 60); eGFR For Non-African Americans > 60 (> 60)
[2019-09-19 07:59] LABS: Basophils % 0.2 %; Eosinophils % 0.1 %; Hematocrit 31.4 % (35.3-44.9); Hemoglobin 10.8 g/dL (11.5-15.4); Immature Platelets 4.7 % (1.1-6.1); Lymphocytes # 1.6 K/mcL (0.6-4.6); Lymphocytes % 10.9 %; Mean Corpuscular HGB Conc 34.4 g/dL (31.6-35.5); Mean Corpuscular Hemoglobin 30.3 pg (28.0-33.3); Mean Platelet Volume 11.1 fL (9.4-12.4); Monocytes # 0.9 K/mcL (0.0-1.3); Monocytes % 5.8 %; Platelet Count 124 K/mcL (140-400); Red Blood Count 3.57 M/mcL (3.82-4.97); Red Cell Distribution Width 12.6 % (11.5-14.5); White Blood Count 14.6 K/mcL (4.3-11.1)
[2019-09-19] MEDS: Budesonide/Formoterol 160/4.5 1 PUFF INH IH SCH ×2 (07:59→22:05)
[2019-09-19 08:16] LABS: Large Platelets Present (Not Present); Platelet Estimate Normal (Normal); Reactive Lymphocytes Present (Not Present); Toxic Granulation Present (Not Present)
[2019-09-19] MEDS: Insulin LISPRO 300 UNITS/3 ML VIAL SQ SCH ×4 (08:55→20:39)
[2019-09-19 09:22] LABS: Acinetobacter baumannii by PCR Not Detected (Not Detect); Candida albicans by PCR Not Detected (Not Detect); Candida glabrata by PCR Not Detected (Not Detect); Candida krusei by PCR Not Detected (Not Detect); Candida parapsilosis by PCR Not Detected (Not Detect); Candida tropicalis by PCR Not Detected (Not Detect); Enterobacter cloacae Cmplx PCR Not Detected (Not Detect); Enterococcus by PCR Not Detected (Not Detect); Escherichia coli by PCR DETECTED (Not Detect); Klebsiella oxytoca by PCR Not Detected (Not Detect); Klebsiella pneumoniae by PCR Not Detected (Not Detect); Proteus by PCR Not Detected (Not Detect); Pseudomonas aeruginosa by PCR Not Detected (Not Detect); Serratia marcescens by PCR Not Detected (Not Detect); Staphylococcus aureus by PCR Not Detected (Not Detect); Staphylococcus by PCR Not Detected (Not Detect); Streptococcus agalactiae(B)PCR Not Detected (Not Detect); Streptococcus by PCR Not Detected (Not Detect); Streptococcus pneumoniae PCR Not Detected (Not Detect); Streptococcus pyogenes (A) PCR Not Detected (Not Detect); blaKPC Carbapenem-Resist Gene Not Detected (Not Detect)
[2019-09-19] MEDS: Metoprolol XL (24 HR) Succ 50 MG TAB.ER.24H PO SCH (10:06)
[2019-09-19] MEDS: Gabapentin 300 MG CAPSULE PO SCH ×2 (10:06→20:36)
[2019-09-19] MEDS: cefTRIAXone 2,000 MG in Water for inj. (sterile) 10 ML IVPB SCH (10:06)
[2019-09-19] MEDS: amLODIPine 5 MG TABLET PO SCH (10:06)
[2019-09-19] MEDS: Cholecalciferol (D-3) 1,000 UNIT (25MCG) TABLET PO SCH (10:07)
[2019-09-19] MEDS: Lisinopril 20 MG TABLET PO SCH (10:07)
[2019-09-19] MEDS: Cyanocobalamin (B-12) 1,000 MCG TABLET PO SCH (10:07)
[2019-09-19] MEDS: Ibuprofen 400 MG TABLET PO PRN ×2 (15:45→23:27)
[2019-09-19] MEDS ORDERED: Melatonin 3 MG TABLET PO PRN (16:29)
[2019-09-19] MEDS: Ipratropium/Albuterol Neb 3 ML IH SCH ×2 (17:33→22:05)
[2019-09-20] MEDS: Ipratropium/Albuterol Neb 3 ML IH SCH ×4 (03:55→22:53)
[2019-09-20] MEDS: *HR* Heparin 5,000 UNIT/ML VIAL SQ SCH ×3 (05:26→21:41)
[2019-09-20] MEDS: Budesonide/Formoterol 160/4.5 1 PUFF INH IH SCH ×2 (09:37→20:43)
[2019-09-20] MEDS: Insulin LISPRO 300 UNITS/3 ML VIAL SQ SCH ×4 (10:27→21:39)
[2019-09-20 10:29] LABS: Hematocrit 32.5 % (35.3-44.9); Mean Corpuscular HGB Conc 33.8 g/dL (31.6-35.5); Mean Corpuscular Hemoglobin 30.1 pg (28.0-33.3); Mean Corpuscular Volume 88.8 fL (83.0-100.0); Mean Platelet Volume 10.6 fL (9.4-12.4); Platelet Count 117 K/mcL (140-400); Red Blood Count 3.66 M/mcL (3.82-4.97); Red Cell Distribution Width 12.5 % (11.5-14.5)
[2019-09-20 10:31] LABS: White Blood Count 4.8 K/mcL (4.3-11.1)
[2019-09-20] MEDS: Metoprolol XL (24 HR) Succ 50 MG TAB.ER.24H PO SCH (10:34)
[2019-09-20] MEDS: amLODIPine 5 MG TABLET PO SCH (10:40)
[2019-09-20] MEDS: Lisinopril 20 MG TABLET PO SCH (10:40)
[2019-09-20] MEDS: Gabapentin 300 MG CAPSULE PO SCH ×3 (10:40→21:41)
[2019-09-20] MEDS: Cholecalciferol (D-3) 1,000 UNIT (25MCG) TABLET PO SCH (10:40)
[2019-09-20] MEDS: Cyanocobalamin (B-12) 1,000 MCG TABLET PO SCH (10:40)
[2019-09-20] MEDS: Ibuprofen 400 MG TABLET PO PRN (10:41)
[2019-09-20] MEDS: cefTRIAXone 2,000 MG in Water for inj. (sterile) 10 ML IVPB SCH (10:41)
[2019-09-20 10:45] LABS: BUN/Creatinine Ratio 17 (6-26); Blood Urea Nitrogen 11 mg/dL (8-23); Calcium 8.7 mg/dL (8.6-10.3); Carbon Dioxide 22 mEq/L (23-29); Chloride 110 mEq/L (98-107); Glucose 181 mg/dL (70-105); Osmolality,Calculated 292 (280-300); Potassium 3.7 mEq/L (3.5-5.1); Sodium 139 mEq/L (136-145); eGFR For African Americans > 60 (> 60); eGFR For Non-African Americans > 60 (> 60)
[2019-09-20] MEDS ORDERED: Furosemide 20 MG TABLET PO SCH (15:30)
[2019-09-20] MEDS: *HR* OxyCODONE Immed Rel 5 MG TABLET PO PRN (16:49)
[2019-09-20] MEDS: traZODone 50 MG TABLET PO PRN (21:40)
[2019-09-21 00:41] LABS: Hematocrit 29.7 % (35.3-44.9); Hemoglobin 10.2 g/dL (11.5-15.4); Mean Corpuscular HGB Conc 34.3 g/dL (31.6-35.5); Mean Corpuscular Hemoglobin 30.4 pg (28.0-33.3); Mean Corpuscular Volume 88.4 fL (83.0-100.0); Mean Platelet Volume 10.5 fL (9.4-12.4); Platelet Count 137 K/mcL (140-400); Red Blood Count 3.36 M/mcL (3.82-4.97); Red Cell Distribution Width 12.5 % (11.5-14.5); White Blood Count 3.8 K/mcL (4.3-11.1)
[2019-09-21 01:00] LABS: BUN/Creatinine Ratio 15 (6-26); Blood Urea Nitrogen 9 mg/dL (8-23); Calcium 8.6 mg/dL (8.6-10.3); Carbon Dioxide 22 mEq/L (23-29); Chloride 108 mEq/L (98-107); Glucose 171 mg/dL (70-105); Osmolality,Calculated 289 (280-300); Potassium 3.5 mEq/L (3.5-5.1); Sodium 138 mEq/L (136-145); eGFR For African Americans > 60 (> 60); eGFR For Non-African Americans > 60 (> 60)
[2019-09-21] MEDS: Ipratropium/Albuterol Neb 3 ML IH SCH ×4 (04:05→22:28)
[2019-09-21] MEDS: Ibuprofen 400 MG TABLET PO PRN (06:49)
[2019-09-21] MEDS: Insulin LISPRO 300 UNITS/3 ML VIAL SQ SCH ×4 (10:01→20:57)
[2019-09-21] MEDS: *HR* Heparin 5,000 UNIT/ML VIAL SQ SCH ×3 (10:01→21:05)
[2019-09-21] MEDS: Gabapentin 300 MG CAPSULE PO SCH ×3 (10:10→21:04)
[2019-09-21] MEDS: Cyanocobalamin (B-12) 1,000 MCG TABLET PO SCH (10:10)
[2019-09-21] MEDS: Metoprolol XL (24 HR) Succ 50 MG TAB.ER.24H PO SCH (10:11)
[2019-09-21] MEDS: Cholecalciferol (D-3) 1,000 UNIT (25MCG) TABLET PO SCH (10:11)
[2019-09-21] MEDS: Lisinopril 20 MG TABLET PO SCH (10:11)
[2019-09-21] MEDS: amLODIPine 5 MG TABLET PO SCH (10:11)
[2019-09-21] MEDS: *HR* OxyCODONE Immed Rel 5 MG TABLET PO PRN ×2 (10:14→21:04)
[2019-09-21] MEDS: cefTRIAXone 2,000 MG in Water for inj. (sterile) 10 ML IVPB SCH (10:15)
[2019-09-21] MEDS: Budesonide/Formoterol 160/4.5 1 PUFF INH IH SCH ×2 (10:37→22:28)
[2019-09-21] MEDS: traZODone 50 MG TABLET PO PRN (21:04)
[2019-09-22] MEDS: Ipratropium/Albuterol Neb 3 ML IH SCH ×2 (04:51→11:14)
[2019-09-22 04:53] LABS: Mean Corpuscular HGB Conc 33.3 g/dL (31.6-35.5); Mean Corpuscular Hemoglobin 29.2 pg (28.0-33.3); Mean Corpuscular Volume 87.7 fL (83.0-100.0); Mean Platelet Volume 9.8 fL (9.4-12.4); Platelet Count 160 K/mcL (140-400); Red Blood Count 3.42 M/mcL (3.82-4.97); Red Cell Distribution Width 12.5 % (11.5-14.5); White Blood Count 3.7 K/mcL (4.3-11.1)
[2019-09-22 05:07] LABS: BUN/Creatinine Ratio 13 (6-26); Blood Urea Nitrogen 8 mg/dL (8-23); Calcium 9.1 mg/dL (8.6-10.3); Carbon Dioxide 26 mEq/L (23-29); Chloride 105 mEq/L (98-107); Glucose 117 mg/dL (70-105); Osmolality,Calculated 283 (280-300); Potassium 3.6 mEq/L (3.5-5.1); Sodium 137 mEq/L (136-145); eGFR For African Americans > 60 (> 60); eGFR For Non-African Americans > 60 (> 60)
[2019-09-22] MEDS: *HR* Heparin 5,000 UNIT/ML VIAL SQ SCH (06:10)
[2019-09-22 07:13] VITALS: BP 152/73
[2019-09-22] MEDS: Insulin LISPRO 300 UNITS/3 ML VIAL SQ SCH (09:00)
[2019-09-22] MEDS: Cyanocobalamin (B-12) 1,000 MCG TABLET PO SCH (09:09)
[2019-09-22] MEDS: *HR* OxyCODONE Immed Rel 5 MG TABLET PO PRN (09:09)
[2019-09-22] MEDS: Gabapentin 300 MG CAPSULE PO SCH (09:09)
[2019-09-22] MEDS: amLODIPine 5 MG TABLET PO SCH (09:09)
[2019-09-22] MEDS: Cholecalciferol (D-3) 1,000 UNIT (25MCG) TABLET PO SCH (09:09)
[2019-09-22] MEDS: Metoprolol XL (24 HR) Succ 50 MG TAB.ER.24H PO SCH (09:10)
[2019-09-22] MEDS: Lisinopril 20 MG TABLET PO SCH (09:10)
[2019-09-22] MEDS: Budesonide/Formoterol 160/4.5 1 PUFF INH IH SCH (11:15)
== END 2019-09-22 12:52 | disposition home health service (06) | DRG 871 ==
LOC: EMEROOARM 18:01 → 3ANU 18:01 → SUATTDRO 20:54 → 3ANU 21:29
PROVIDERS: ADMIT Internal Medicine; ATTEND Internal Medicine

== ENCOUNTER 2019-11-10 08:20 | Observation (INO) ==
[2019-11-10] MEDS ORDERED: Ipratropium/Albuterol Neb 3 ML IH ONE (09:08)
[2019-11-10] MEDS ORDERED: methylPREDNISolone 125 MG/2 ML VIAL IVP ONE (09:08)
[2019-11-10] MEDS ORDERED: Ondansetron 4 MG/2 ML VIAL IVP ONE (09:10)
[2019-11-10] MEDS ORDERED: Isovue-370 500 ML BOTTLE IVP ONE (09:10)
[2019-11-10 09:44] LABS: Basophils % 0.8 %; Eosinophils # 0.1 K/mcL (0.0-0.6); Eosinophils % 2.5 %; Hematocrit 37.2 % (35.3-44.9); Hemoglobin 12.8 g/dL (11.5-15.4); Immature Granulocytes % 0.4 % (0-4); Lymphocytes % 21.2 %; Mean Corpuscular HGB Conc 34.4 g/dL (31.6-35.5); Mean Corpuscular Hemoglobin 29.4 pg (28.0-33.3); Mean Corpuscular Volume 85.5 fL (83.0-100.0); Mean Platelet Volume 9.6 fL (9.4-12.4); Monocytes # 0.4 K/mcL (0.0-1.3); Neutrophils # 3.1 K/mcL (1.6-8.9); Platelet Count 198 K/mcL (140-400); Red Blood Count 4.35 M/mcL (3.82-4.97); Segmented Neutrophils % 66.1 %; White Blood Count 4.8 K/mcL (4.3-11.1)
[2019-11-10 10:05] LABS: BUN/Creatinine Ratio 15 (6-26); Blood Urea Nitrogen 10 mg/dL (8-23); Calcium 9.6 mg/dL (8.6-10.3); Carbon Dioxide 24 mEq/L (23-29); Chloride 104 mEq/L (98-107); Glucose 115 mg/dL (70-105); Osmolality,Calculated 280 (280-300); Potassium 4.2 mEq/L (3.5-5.1); Sodium 135 mEq/L (136-145); Troponin I < 0.03 ng/mL (< 0.04); eGFR For African Americans > 60 (> 60); eGFR For Non-African Americans > 60 (> 60)
[2019-11-10] MEDS ORDERED: Naloxone 0.4 MG/ML INJ IVP PRN (13:51)
[2019-11-10] MEDS ORDERED: *HR* Dextrose 50 % in Water (Syg) 50 ML SYRINGE IVP PRN (13:56)
[2019-11-10] MEDS ORDERED: D5% in Water 1,000 ML IVC PRN (13:56)
[2019-11-10] MEDS ORDERED: Dextrose Gel 15 GM/37.5 ML TUBE PO PRN ×2 (13:56)
[2019-11-10 14:00] LABS: ABG Base Excess 0 mEq/L (-2 to 3); ABG HCO3 27 mEq/L (21-27); ABG Oxygen Saturation 95 % (95-98); ABG PCO2 50 mmHg (35-45); ABG PH 7.34 pH Units (7.32-7.45); ABG PO2 81 mmHg (85-104); ABG TCO2 28 mEq/L (20-26)
[2019-11-10] MEDS ORDERED: traZODone 50 MG TABLET PO PRN (14:26)
[2019-11-10] MEDS ORDERED: Furosemide 20 MG TABLET PO SCH (14:45)
[2019-11-10] MEDS: *HR* OxyCODONE Immed Rel 5 MG TABLET PO PRN ×2 (15:47→23:09)
[2019-11-10] MEDS: Gabapentin 300 MG CAPSULE PO SCH ×2 (15:48→20:08)
[2019-11-10] MEDS: Ipratropium/Albuterol Neb 3 ML IH SCH ×3 (16:39→23:57)
[2019-11-10] MEDS: Insulin LISPRO 300 UNITS/3 ML VIAL SQ SCH (18:05)
[2019-11-10] MEDS: *HR* Heparin 5,000 UNIT/ML VIAL SQ SCH (18:06)
[2019-11-10] MEDS ORDERED: Insulin LISPRO 300 UNITS/3 ML VIAL SQ SCH (21:00)
[2019-11-11 03:20] LABS: Basophils % 0.2 %; Hematocrit 35.8 % (35.3-44.9); Hemoglobin 12.1 g/dL (11.5-15.4); Immature Granulocytes % 0.9 % (0-4); Lymphocytes # 0.8 K/mcL (0.6-4.6); Lymphocytes % 18.1 %; Mean Corpuscular HGB Conc 33.8 g/dL (31.6-35.5); Mean Corpuscular Volume 85.9 fL (83.0-100.0); Monocytes # 0.1 K/mcL (0.0-1.3); Monocytes % 2.5 %; Neutrophils # 3.4 K/mcL (1.6-8.9); Platelet Count 209 K/mcL (140-400); Red Blood Count 4.17 M/mcL (3.82-4.97); Red Cell Distribution Width 12.7 % (11.5-14.5); Segmented Neutrophils % 78.3 %; White Blood Count 4.4 K/mcL (4.3-11.1)
[2019-11-11 03:34] LABS: BUN/Creatinine Ratio 18 (6-26); Blood Urea Nitrogen 17 mg/dL (8-23); Calcium 9.8 mg/dL (8.6-10.3); Carbon Dioxide 23 mEq/L (23-29); Chloride 101 mEq/L (98-107); Glucose 230 mg/dL (70-105); Magnesium 1.8 mg/dL (1.6-2.6); Osmolality,Calculated 287 (280-300); Phosphorous 4.1 mg/dL (2.7-4.5); Potassium 4.3 mEq/L (3.5-5.1); Sodium 134 mEq/L (136-145); eGFR For African Americans > 60 (> 60); eGFR For Non-African Americans > 60 (> 60)
[2019-11-11] MEDS: Ipratropium/Albuterol Neb 3 ML IH SCH ×3 (04:24→11:15)
[2019-11-11] MEDS: *HR* Heparin 5,000 UNIT/ML VIAL SQ SCH (05:29)
[2019-11-11] MEDS ORDERED: MethylPREDNISolone 40 MG/ML VIAL IVP SCH (06:00)
[2019-11-11 07:38] VITALS: BP 113/74
[2019-11-11] MEDS ORDERED: amLODIPine 5 MG TABLET PO SCH (09:00)
[2019-11-11] MEDS ORDERED: Lisinopril 20 MG TABLET PO SCH (09:00)
[2019-11-11] MEDS ORDERED: predniSONE 20 MG TABLET PO SCH (09:00)
[2019-11-11] MEDS: Gabapentin 300 MG CAPSULE PO SCH (09:10)
[2019-11-11] MEDS: Insulin LISPRO 300 UNITS/3 ML VIAL SQ SCH (09:11)
[2019-11-11] MEDS: *HR* OxyCODONE Immed Rel 5 MG TABLET PO PRN (09:13)
[2019-11-11 10:45] LABS: Adenovirus Not Detected (Not Detect); Bordetella Pertussis Not Detected (Not Detect); Chlamydophila pneumoniae Not Detected (Not Detect); Coronavirus 229E Not Detected (Not Detect); Coronavirus HKU1 Not Detected (Not Detect); Coronavirus NL63 Not Detected (Not Detect); Coronavirus OC43 Not Detected (Not Detect); Human Metapneumovirus Not Detected (Not Detect); Human Rhinovirus/Enterovirus Not Detected (Not Detect); Influenza A Subtype 2009 H1 Not Detected (Not Detect); Influenza B Not Detected (Not Detect); Mycoplasma pneumoniae Not Detected (Not Detect); Parainfluenza Virus 1 Not Detected (Not Detect); Parainfluenza Virus 2 Not Detected (Not Detect); Parainfluenza Virus 3 Not Detected (Not Detect); Parainfluenza Virus 4 Not Detected (Not Detect); Respiratory Syncytial Virus Not Detected (Not Detect)
== END 2019-11-11 12:13 | disposition home or self-care (01) ==
LOC: EMEROOARM 08:20 → 3BNU 08:20 → SUATTDRO 14:08 → 3BNU 14:44
PROVIDERS: ADMIT Internal Medicine; ATTEND Internal Medicine

== ENCOUNTER 2019-11-23 14:52 | Inpatient (IN) ==
[2019-11-23] MEDS ORDERED: 0.9 % Sodium Chloride 2,000 ML ONE (15:11)
[2019-11-23] MEDS: 0.9 % Sodium Chloride 1,000 ML IVC SCH ×2 (15:16→15:33)
[2019-11-23 15:30] LABS: White Blood Count 15.1 K/mcL (4.3-11.1)
[2019-11-23 15:31] LABS: Basophils % 0.3 %; Eosinophils % 0.2 %; Hematocrit 37.8 % (35.3-44.9); Hemoglobin 12.9 g/dL (11.5-15.4); Immature Granulocytes % 0.5 % (0-4); Lymphocytes # 1.4 K/mcL (0.6-4.6); Lymphocytes % 9.3 %; Mean Corpuscular HGB Conc 34.1 g/dL (31.6-35.5); Mean Corpuscular Hemoglobin 28.9 pg (28.0-33.3); Mean Corpuscular Volume 84.6 fL (83.0-100.0); Mean Platelet Volume 9.2 fL (9.4-12.4); Monocytes # 0.9 K/mcL (0.0-1.3); Monocytes % 5.8 %; Neutrophils # 12.7 K/mcL (1.6-8.9); Platelet Count 244 K/mcL (140-400); Red Blood Count 4.47 M/mcL (3.82-4.97); Red Cell Distribution Width 12.7 % (11.5-14.5); Segmented Neutrophils % 83.9 %
[2019-11-23 15:41] LABS: BUN/Creatinine Ratio 11 (6-26); Blood Urea Nitrogen 9 mg/dL (8-23); Calcium 9.5 mg/dL (8.6-10.3); Carbon Dioxide 20 mEq/L (23-29); Chloride 101 mEq/L (98-107); Glucose 171 mg/dL (70-105); Osmolality,Calculated 275 (280-300); Potassium 3.9 mEq/L (3.5-5.1); Sodium 131 mEq/L (136-145); eGFR For African Americans > 60 (> 60); eGFR For Non-African Americans > 60 (> 60)
[2019-11-23 15:42] LABS: Troponin I < 0.03 ng/mL (< 0.04)
[2019-11-23] MEDS ORDERED: *HR* FentaNYL (PF) 100 MCG/2 ML VIAL IVP STA (15:44)
[2019-11-23 16:00] LABS: Bilirubin,Urine Small (Negative); Blood,Urine Trace (Negative); Clarity,Urine Turbid (Clear); Color,Urine Dark Yellow (Yellow); Glucose,Urine (UA) Normal (Normal); Ketones,Urine Trace mg/dL (Negative); Leukocyte Esterase,Urine Moderate (Negative); Nitrite,Urine Positive (Negative); Protein,Urine 30 mg/dL (Neg-Trace); Urobilinogen,Urine Normal (Normal)
[2019-11-23 16:03] LABS: Bacteria,Urine Many per hpf (None-Few); RBC,Urine 0-3 per hpf (0-3); Squamous Epithelial Cell,Urine Many per lpf (None-Few); WBC,Urine 30-50 per hpf (0-3)
[2019-11-23] MEDS ORDERED: cefTRIAXone 1,000 MG in Water for inj. (sterile) 10 ML IVP ONE (16:13)
[2019-11-23 16:28] LABS: Hyaline Casts,Urine None Seen per lpf (None-Few)
[2019-11-23] MEDS ORDERED: Ipratropium/Albuterol Neb 3 ML IH PRN (17:07)
[2019-11-23] MEDS ORDERED: Isovue-370 500 ML BOTTLE IVP ONE (17:26)
[2019-11-23] MEDS ORDERED: 0.9 % Sodium Chloride 500 ML IVC ONE (17:33)
[2019-11-23] MEDS ORDERED: MethylPREDNISolone 40 MG/ML VIAL IVP SCH (18:00)
[2019-11-23] MEDS: *HR* Heparin 5,000 UNIT/ML VIAL SQ SCH (20:22)
[2019-11-23] MEDS: Gabapentin 300 MG CAPSULE PO SCH (20:22)
[2019-11-23] MEDS: ALPRAZolam 0.5 MG TABLET PO PRN (20:22)
[2019-11-23] MEDS: Metoprolol XL (24 HR) Succ 50 MG TAB.ER.24H PO SCH (20:29)
[2019-11-23] MEDS: Insulin LISPRO 300 UNITS/3 ML VIAL SQ SCH (20:39)
[2019-11-23] MEDS: Ipratropium/Albuterol Neb 3 ML IH SCH (21:54)
[2019-11-23] MEDS: Ringers Solution, Lactated 1,000 ML IVC SCH (21:59)
[2019-11-24] MEDS: *HR* OxyCODONE Oral Soln 5 MG/5 ML UD.LIQ PO PRN ×3 (01:30→15:47)
[2019-11-24 03:04] LABS: BUN/Creatinine Ratio 10 (6-26); Blood Urea Nitrogen 6 mg/dL (8-23); Calcium 8.6 mg/dL (8.6-10.3); Carbon Dioxide 20 mEq/L (23-29); Chloride 107 mEq/L (98-107); Glucose 120 mg/dL (70-105); Osmolality,Calculated 283 (280-300); Potassium 3.7 mEq/L (3.5-5.1); Sodium 137 mEq/L (136-145); eGFR For African Americans > 60 (> 60); eGFR For Non-African Americans > 60 (> 60)
[2019-11-24 03:10] LABS: Basophils % 0.3 %; Eosinophils # 0.1 K/mcL (0.0-0.6); Eosinophils % 0.9 %; Hematocrit 30.8 % (35.3-44.9); Hemoglobin 10.4 g/dL (11.5-15.4); Immature Granulocytes % 0.3 % (0-4); Lymphocytes # 1.6 K/mcL (0.6-4.6); Lymphocytes % 25.2 %; Mean Corpuscular HGB Conc 33.8 g/dL (31.6-35.5); Mean Corpuscular Hemoglobin 29.3 pg (28.0-33.3); Mean Corpuscular Volume 86.8 fL (83.0-100.0); Mean Platelet Volume 9.6 fL (9.4-12.4); Monocytes # 0.5 K/mcL (0.0-1.3); Monocytes % 7.5 %; Neutrophils # 4.2 K/mcL (1.6-8.9); Platelet Count 183 K/mcL (140-400); Red Blood Count 3.55 M/mcL (3.82-4.97); Red Cell Distribution Width 12.8 % (11.5-14.5); Segmented Neutrophils % 65.8 %; White Blood Count 6.4 K/mcL (4.3-11.1)
[2019-11-24] MEDS: Ipratropium/Albuterol Neb 3 ML IH SCH ×4 (03:28→22:03)
[2019-11-24] MEDS: *HR* Heparin 5,000 UNIT/ML VIAL SQ SCH ×2 (05:57→18:03)
[2019-11-24 07:45] LABS: Estimated Average Glucose 140 mg/dl
[2019-11-24] MEDS: Insulin LISPRO 300 UNITS/3 ML VIAL SQ SCH ×4 (09:00→21:25)
[2019-11-24] MEDS: Metoprolol XL (24 HR) Succ 50 MG TAB.ER.24H PO SCH (09:03)
[2019-11-24] MEDS: PARoxetine 20 MG TABLET PO SCH (09:04)
[2019-11-24] MEDS: Gabapentin 300 MG CAPSULE PO SCH ×3 (09:05→20:19)
[2019-11-24] MEDS: Piperacillin/Tazobactam 3.375 GM in 0.9 % Sodium Chloride Mini Bag 100 ML IVPB SCH ×2 (09:08→15:47)
[2019-11-24] MEDS: Ringers Solution, Lactated 1,000 ML IVC SCH (09:09)
[2019-11-24] MEDS: Benzonatate 100 MG CAPSULE PO PRN ×2 (09:10→15:50)
[2019-11-24] MEDS: ALPRAZolam 0.5 MG TABLET PO PRN (15:50)
[2019-11-24 20:15] LABS: Adenovirus Not Detected (Not Detect); Bordetella Pertussis Not Detected (Not Detect); Chlamydophila pneumoniae Not Detected (Not Detect); Coronavirus 229E Not Detected (Not Detect); Coronavirus HKU1 Not Detected (Not Detect); Coronavirus NL63 Not Detected (Not Detect); Coronavirus OC43 Not Detected (Not Detect); Human Metapneumovirus Not Detected (Not Detect); Human Rhinovirus/Enterovirus Not Detected (Not Detect); Influenza A Subtype 2009 H1 Not Detected (Not Detect); Influenza B Not Detected (Not Detect); Mycoplasma pneumoniae Not Detected (Not Detect); Parainfluenza Virus 1 Not Detected (Not Detect); Parainfluenza Virus 2 Not Detected (Not Detect); Parainfluenza Virus 3 Not Detected (Not Detect); Parainfluenza Virus 4 Not Detected (Not Detect); Respiratory Syncytial Virus Not Detected (Not Detect)
[2019-11-24] MEDS ORDERED: Doxycycline 100 MG CAPSULE PO SCH (21:00)
[2019-11-25] MEDS: Piperacillin/Tazobactam 3.375 GM in 0.9 % Sodium Chloride Mini Bag 100 ML IVPB SCH ×4 (00:10→23:37)
[2019-11-25] MEDS: Ipratropium/Albuterol Neb 3 ML IH SCH ×4 (03:48→22:04)
[2019-11-25] MEDS: *HR* OxyCODONE Oral Soln 5 MG/5 ML UD.LIQ PO PRN ×3 (04:45→22:37)
[2019-11-25 05:43] LABS: Hematocrit 30.2 % (35.3-44.9); Hemoglobin 9.6 g/dL (11.5-15.4); Mean Corpuscular HGB Conc 31.8 g/dL (31.6-35.5); Mean Corpuscular Hemoglobin 29.3 pg (28.0-33.3); Mean Corpuscular Volume 92.1 fL (83.0-100.0); Mean Platelet Volume 9.7 fL (9.4-12.4); Platelet Count 199 K/mcL (140-400); Red Blood Count 3.28 M/mcL (3.82-4.97); Red Cell Distribution Width 12.9 % (11.5-14.5)
[2019-11-25 06:03] LABS: BUN/Creatinine Ratio 11 (6-26); Blood Urea Nitrogen 9 mg/dL (8-23); Calcium 8.8 mg/dL (8.6-10.3); Carbon Dioxide 21 mEq/L (23-29); Chloride 104 mEq/L (98-107); Glucose 137 mg/dL (70-105); Osmolality,Calculated 281 (280-300); Potassium 3.9 mEq/L (3.5-5.1); Sodium 135 mEq/L (136-145); eGFR For African Americans > 60 (> 60); eGFR For Non-African Americans > 60 (> 60)
[2019-11-25] MEDS: *HR* Heparin 5,000 UNIT/ML VIAL SQ SCH ×2 (06:19→18:23)
[2019-11-25] MEDS: Gabapentin 300 MG CAPSULE PO SCH ×3 (07:58→20:19)
[2019-11-25] MEDS: Metoprolol XL (24 HR) Succ 50 MG TAB.ER.24H PO SCH (07:58)
[2019-11-25] MEDS: PARoxetine 20 MG TABLET PO SCH (07:59)
[2019-11-25] MEDS: ALPRAZolam 0.5 MG TABLET PO PRN ×2 (08:06→20:19)
[2019-11-25] MEDS: Insulin LISPRO 300 UNITS/3 ML VIAL SQ SCH ×4 (08:07→20:18)
[2019-11-26] MEDS: Ipratropium/Albuterol Neb 3 ML IH SCH ×2 (03:13→09:43)
[2019-11-26 05:11] LABS: Hematocrit 31.2 % (35.3-44.9); Hemoglobin 10.3 g/dL (11.5-15.4); Mean Corpuscular Hemoglobin 28.8 pg (28.0-33.3); Mean Corpuscular Volume 87.2 fL (83.0-100.0); Mean Platelet Volume 9.5 fL (9.4-12.4); Platelet Count 220 K/mcL (140-400); Red Blood Count 3.58 M/mcL (3.82-4.97); Red Cell Distribution Width 12.5 % (11.5-14.5); White Blood Count 5.4 K/mcL (4.3-11.1)
[2019-11-26 05:17] LABS: BUN/Creatinine Ratio 13 (6-26); Blood Urea Nitrogen 10 mg/dL (8-23); Calcium 9.5 mg/dL (8.6-10.3); Carbon Dioxide 26 mEq/L (23-29); Chloride 101 mEq/L (98-107); Glucose 144 mg/dL (70-105); Osmolality,Calculated 286 (280-300); Potassium 4.2 mEq/L (3.5-5.1); Sodium 137 mEq/L (136-145); eGFR For African Americans > 60 (> 60); eGFR For Non-African Americans > 60 (> 60)
[2019-11-26] MEDS: *HR* Heparin 5,000 UNIT/ML VIAL SQ SCH (06:25)
[2019-11-26 07:42] VITALS: BP 128/85
[2019-11-26] MEDS: Insulin LISPRO 300 UNITS/3 ML VIAL SQ SCH (07:43)
[2019-11-26] MEDS: Piperacillin/Tazobactam 3.375 GM in 0.9 % Sodium Chloride Mini Bag 100 ML IVPB SCH (07:48)
[2019-11-26] MEDS: Gabapentin 300 MG CAPSULE PO SCH (07:49)
[2019-11-26] MEDS: Metoprolol XL (24 HR) Succ 50 MG TAB.ER.24H PO SCH (07:49)
[2019-11-26] MEDS: PARoxetine 20 MG TABLET PO SCH (07:50)
== END 2019-11-26 10:25 | disposition home or self-care (01) | DRG 871 ==
LOC: 3ANU 14:52 → EMEROOARM 14:52 → SUATTDRO 16:36 → OBSVTOIN 16:36 → 3ANU 17:57
PROVIDERS: ADMIT Internal Medicine; ATTEND Pharmacist

== ENCOUNTER 2020-06-22 18:49 | Observation (INO) ==
[2020-06-22] MEDS ORDERED: 0.9 % Sodium Chloride 500 ML IVC ONE (19:03)
[2020-06-22] MEDS ORDERED: Nitroglycerin 0.4 MG TAB.SUBL SL SCH (19:15)
[2020-06-22 19:24] LABS: Basophils # 0.1 K/mcL (0.0-0.2); Basophils % 0.5 %; Eosinophils # 0.2 K/mcL (0.0-0.6); Hematocrit 43.5 % (35.3-44.9); Hemoglobin 14.3 g/dL (11.5-15.4); Immature Granulocytes % 0.2 % (0-4); Lymphocytes # 3.1 K/mcL (0.6-4.6); Lymphocytes % 30.7 %; Mean Corpuscular HGB Conc 32.9 g/dL (31.6-35.5); Mean Corpuscular Hemoglobin 29.8 pg (28.0-33.3); Mean Corpuscular Volume 90.6 fL (83.0-100.0); Mean Platelet Volume 9.8 fL (9.4-12.4); Monocytes # 0.6 K/mcL (0.0-1.3); Monocytes % 6.3 %; Neutrophils # 6.2 K/mcL (1.6-8.9); Platelet Count 238 K/mcL (140-400); Red Cell Distribution Width 12.7 % (11.5-14.5); Segmented Neutrophils % 60.3 %; White Blood Count 10.2 K/mcL (4.3-11.1)
[2020-06-22 19:34] LABS: INR 0.9; Prothrombin Time 10.2 Seconds (9.4-12.1)
[2020-06-22 19:36] LABS: Activated Partial Thrombo Time 32.1 Seconds (26.0-36.0)
[2020-06-22 19:51] LABS: BUN/Creatinine Ratio 25 (6-26); Blood Urea Nitrogen 18 mg/dL (8-23); Calcium 9.4 mg/dL (8.6-10.3); Carbon Dioxide 24 mEq/L (23-29); Chloride 102 mEq/L (98-107); Glucose 118 mg/dL (70-105); Osmolality,Calculated 287 (280-300); Potassium 3.9 mEq/L (3.5-5.1); Sodium 137 mEq/L (136-145); Troponin I < 0.03 ng/mL (< 0.04); eGFR For African Americans > 60 (> 60); eGFR For Non-African Americans > 60 (> 60)
[2020-06-22] MEDS ORDERED: Morphine Sulfate 2 MG/ML SYRINGE IVP ONE (20:18)
[2020-06-23] MEDS ORDERED: GuaiFENesin/Codeine Oral Soln 5 ML UDC PO PRN (00:45)
[2020-06-23] MEDS: Gabapentin 300 MG CAPSULE PO SCH ×2 (01:02→12:43)
[2020-06-23] MEDS: Morphine Sulfate 2 MG/ML SYRINGE IVP PRN ×2 (01:03→12:42)
[2020-06-23] MEDS: ALPRAZolam 0.5 MG TABLET PO SCH ×2 (01:03→12:43)
[2020-06-23 04:30] LABS: Basophils % 0.4 %; Eosinophils # 0.2 K/mcL (0.0-0.6); Eosinophils % 2.5 %; Hematocrit 37.4 % (35.3-44.9); Immature Granulocytes % 0.1 % (0-4); Lymphocytes # 2.8 K/mcL (0.6-4.6); Lymphocytes % 39.5 %; Mean Corpuscular HGB Conc 31.6 g/dL (31.6-35.5); Mean Corpuscular Hemoglobin 28.8 pg (28.0-33.3); Mean Corpuscular Volume 91.2 fL (83.0-100.0); Monocytes # 0.5 K/mcL (0.0-1.3); Monocytes % 6.7 %; Neutrophils # 3.6 K/mcL (1.6-8.9); Platelet Count 188 K/mcL (140-400); Red Cell Distribution Width 12.7 % (11.5-14.5); Segmented Neutrophils % 50.8 %; White Blood Count 7.2 K/mcL (4.3-11.1)
[2020-06-23 04:31] LABS: Hemoglobin 11.8 g/dL (11.5-15.4)
[2020-06-23 04:49] LABS: Alanine Aminotransferase 9 Units/L (7-52); Albumin 3.9 g/dL (3.5-5.7); Albumin/Globulin Ratio 1.8 (1.1-2.2); Alkaline Phosphatase 47 Units/L (34-104); Aspartate Amino Transferase 11 Units/L (13-39); BUN/Creatinine Ratio 36 (6-26); Bilirubin,Total 0.3 mg/dL (0.3-1.0); Blood Urea Nitrogen 21 mg/dL (8-23); Calcium 8.7 mg/dL (8.6-10.3); Carbon Dioxide 24 mEq/L (23-29); Chloride 105 mEq/L (98-107); Globulin 2.2 g/dL (2.4-3.5); Glucose 157 mg/dL (70-105); Osmolality,Calculated 290 (280-300); Potassium 4.2 mEq/L (3.5-5.1); Sodium 137 mEq/L (136-145); Total Protein 6.1 g/dL (6.4-8.9); Troponin I < 0.03 ng/mL (< 0.04); eGFR For African Americans > 60 (> 60); eGFR For Non-African Americans > 60 (> 60)
[2020-06-23] MEDS ORDERED: *HR* Heparin 5,000 UNIT/ML VIAL SQ SCH (06:00)
[2020-06-23 06:28] VITALS: BP 121/75
[2020-06-23] MEDS ORDERED: Perflutren Lipid Microsphere 1.3 ML in 0.9 % Sodium Chloride 8.7 ML IVP PRN (07:13)
[2020-06-23] MEDS ORDERED: Furosemide 20 MG TABLET PO SCH (08:00)
[2020-06-23] MEDS ORDERED: D5% in Water 1,000 ML IVC PRN (08:42)
[2020-06-23] MEDS ORDERED: *HR* Dextrose 50 % in Water (Vial) 50 ML VIAL IVP PRN (08:42)
[2020-06-23] MEDS ORDERED: Dextrose Gel 15 GM/37.5 ML TUBE PO PRN ×2 (08:42)
[2020-06-23] MEDS ORDERED: PARoxetine 20 MG TABLET PO SCH (09:00)
[2020-06-23] MEDS ORDERED: Cyanocobalamin (B-12) 1,000 MCG TABLET PO SCH (09:00)
[2020-06-23] MEDS ORDERED: amLODIPine 5 MG TABLET PO SCH (09:00)
[2020-06-23] MEDS ORDERED: Metoprolol XL (24 HR) Succ 50 MG TAB.ER.24H PO SCH (09:00)
[2020-06-23] MEDS ORDERED: Regadenoson 0.4 MG/5 ML SYRINGE IVP ONE (09:32)
[2020-06-23] MEDS: Insulin LISPRO 300 UNITS/3 ML VIAL SQ SCH ×2 (09:33→11:30)
[2020-06-23] MEDS ORDERED: Budesonide Neb 0.5 MG/2 ML IH SCH (10:00)
[2020-06-23] MEDS ORDERED: Tiotropium 18 MCG inhalation IH SCH (10:00)
[2020-06-23] MEDS ORDERED: Insulin LISPRO 300 UNITS/3 ML VIAL SQ SCH (21:00)
[2020-06-29] MEDS ORDERED: Ergocalciferol (VIT D2) 50,000 UNIT (1.25MG) CAP PO SCH (09:00)
== END 2020-06-23 16:10 | disposition home health service (06) ==
LOC: EMEROOARM 18:49 → 3BNU 18:49 → SUATTDRO 20:32 → 3BNU 20:51
PROVIDERS: ADMIT Internal Medicine; ATTEND Internal Medicine

== ENCOUNTER 2021-04-28 13:22 | Inpatient (IN) ==
[2021-04-28] MEDS ORDERED: Aspirin 81 MG TAB.CHEW PO ONE (13:29)
[2021-04-28] MEDS ORDERED: Nitroglycerin 0.4 MG TAB.SUBL SL PRN (13:29)
[2021-04-28] MEDS ORDERED: Ipratropium/Albuterol Neb 3 ML IH ONE (13:31)
[2021-04-28] MEDS ORDERED: Perflutren Lipid Microsphere 1.3 ML in 0.9 % Sodium Chloride 8.7 ML IVP PRN (13:52)
[2021-04-28 14:03] LABS: Basophils % 0.6 %; Eosinophils # 0.1 K/mcL (0.0-0.6); Eosinophils % 1.6 %; Hematocrit 40.1 % (35.3-44.9); Hemoglobin 13.2 g/dL (11.5-15.4); Immature Granulocytes % 0.4 % (0-4); Lymphocytes # 1.4 K/mcL (0.6-4.6); Lymphocytes % 27.3 %; Mean Corpuscular HGB Conc 32.9 g/dL (31.6-35.5); Mean Corpuscular Hemoglobin 29.1 pg (28.0-33.3); Mean Corpuscular Volume 88.3 fL (83.0-100.0); Mean Platelet Volume 10.1 fL (9.4-12.4); Monocytes # 0.3 K/mcL (0.0-1.3); Monocytes % 4.9 %; Neutrophils # 3.3 K/mcL (1.6-8.9); Platelet Count 176 K/mcL (140-400); Red Blood Count 4.54 M/mcL (3.82-4.97); Red Cell Distribution Width 12.4 % (11.5-14.5); Segmented Neutrophils % 65.2 %; White Blood Count 5.1 K/mcL (4.3-11.1)
[2021-04-28 14:09] LABS: INR 1.1; Prothrombin Time 12.8 Seconds (9.4-12.1)
[2021-04-28 14:11] LABS: Activated Partial Thrombo Time 31.2 Seconds (26.0-36.0)
[2021-04-28 14:40] LABS: BUN/Creatinine Ratio 17 (6-26); Blood Urea Nitrogen 12 mg/dL (8-23); Calcium 9.7 mg/dL (8.6-10.3); Carbon Dioxide 22 mEq/L (23-29); Chloride 103 mEq/L (98-107); Glucose 152 mg/dL (70-105); Osmolality,Calculated 285 (280-300); Potassium 4.2 mEq/L (3.5-5.1); Sodium 136 mEq/L (136-145); Troponin I < 0.03 ng/mL (< 0.04); eGFR For African Americans > 60 (> 60); eGFR For Non-African Americans > 60 (> 60)
[2021-04-28] MEDS ORDERED: *HR* FentaNYL (PF) 100 MCG/2 ML VIAL ONE (14:52)
[2021-04-28] MEDS ORDERED: *HR* FentaNYL (PF) 100 MCG/2 ML VIAL IVP ONE ×2 (14:55→16:33)
[2021-04-28 14:59] LABS: Bilirubin,Urine Negative (Negative); Blood,Urine Moderate (Negative); Clarity,Urine Turbid (Clear); Color,Urine Yellow (Yellow); Glucose,Urine (UA) Normal (Normal); Ketones,Urine 10 mg/dL (Negative); Leukocyte Esterase,Urine Negative (Negative); Mucus,Urine Few per lpf (None-Few); Nitrite,Urine Negative (Negative); Protein,Urine Trace mg/dL (Neg-Trace); RBC,Urine 30-50 per hpf (0-3); Renal Epithelial Cells,Urine Few per hpf (None-Few); Specific Gravity,Urine 1.026 (1.010-1.025); Squamous Epithelial Cell,Urine Moderate per hpf (None-Few); Transitional Epi Cells,Urine Few per hpf (None-Few); Urobilinogen,Urine Normal (Normal); WBC,Urine 0-3 per hpf (0-3)
[2021-04-28] MEDS: 0.9 % Sodium Chloride 1,000 ML IVC SCH ×2 (15:59→20:34)
[2021-04-28] MEDS ORDERED: Ondansetron ODT 4 MG TAB.RAPDIS SL PRN (17:08)
[2021-04-28] MEDS ORDERED: Naloxone 0.4 MG/ML INJ IVP PRN (17:08)
[2021-04-28] MEDS ORDERED: methylPREDNISolone 125 MG/2 ML VIAL IVP ONE (17:56)
[2021-04-28] MEDS: Ipratropium/Albuterol Neb 3 ML IH SCH ×2 (19:47→23:33)
[2021-04-28] MEDS: Azithromycin 500 MG in 0.9 % Sodium Chloride 250 ML IVPB SCH (20:21)
[2021-04-28] MEDS: ALPRAZolam 0.5 MG TABLET PO SCH (20:21)
[2021-04-28] MEDS: Gabapentin 300 MG CAPSULE PO SCH (20:21)
[2021-04-28 22:09] LABS: Adenovirus Not Detected (Not Detect); Bordetella Pertussis Not Detected (Not Detect); Chlamydophila pneumoniae Not Detected (Not Detect); Coronavirus 229E Not Detected (Not Detect); Coronavirus HKU1 Not Detected (Not Detect); Coronavirus NL63 Not Detected (Not Detect); Coronavirus OC43 Not Detected (Not Detect); Human Metapneumovirus Not Detected (Not Detect); Human Rhinovirus/Enterovirus Not Detected (Not Detect); Influenza A Subtype 2009 H1 Not Detected (Not Detect); Influenza B Not Detected (Not Detect); Mycoplasma pneumoniae Not Detected (Not Detect); Parainfluenza Virus 1 Not Detected (Not Detect); Parainfluenza Virus 2 Not Detected (Not Detect); Parainfluenza Virus 3 Not Detected (Not Detect); Parainfluenza Virus 4 Not Detected (Not Detect); Respiratory Syncytial Virus Not Detected (Not Detect); SARS-CoV-2 Not Detected (Not Detect)
[2021-04-28] MEDS: *HR* OxyCODONE Immed Rel 5 MG TABLET PO PRN (23:55)
[2021-04-29 01:50] LABS: Hematocrit 36.3 % (35.3-44.9); Mean Corpuscular Hemoglobin 28.7 pg (28.0-33.3); Mean Corpuscular Volume 89.9 fL (83.0-100.0); Platelet Count 160 K/mcL (140-400); Red Blood Count 4.04 M/mcL (3.82-4.97); Red Cell Distribution Width 12.6 % (11.5-14.5); White Blood Count 5.3 K/mcL (4.3-11.1)
[2021-04-29 02:07] LABS: BUN/Creatinine Ratio 21 (6-26); Blood Urea Nitrogen 13 mg/dL (8-23); Calcium 8.7 mg/dL (8.6-10.3); Carbon Dioxide 24 mEq/L (23-29); Chloride 104 mEq/L (98-107); Glucose 101 mg/dL (70-105); Osmolality,Calculated 288 (280-300); Potassium 3.8 mEq/L (3.5-5.1); Sodium 139 mEq/L (136-145); eGFR For African Americans > 60 (> 60); eGFR For Non-African Americans > 60 (> 60)
[2021-04-29 02:16] LABS: Hemoglobin 11.6 g/dL (11.5-15.4)
[2021-04-29] MEDS: Ipratropium/Albuterol Neb 3 ML IH SCH ×6 (03:35→23:49)
[2021-04-29] MEDS: 0.9 % Sodium Chloride 1,000 ML IVC SCH ×2 (05:37→16:36)
[2021-04-29] MEDS: *HR* Enoxaparin 40 MG/0.4 ML SYRINGE SQ SCH (05:38)
[2021-04-29] MEDS: ALPRAZolam 0.5 MG TABLET PO SCH ×3 (08:51→21:47)
[2021-04-29] MEDS: Gabapentin 300 MG CAPSULE PO SCH ×3 (08:51→21:47)
[2021-04-29] MEDS: Furosemide 20 MG TABLET PO SCH (08:51)
[2021-04-29] MEDS: amLODIPine 5 MG TABLET PO SCH (08:51)
[2021-04-29] MEDS: Metoprolol XL (24 HR) Succ 50 MG TAB.ER.24H PO SCH (08:51)
[2021-04-29] MEDS: Isosorbide MONOnitrate (24 HR) 30 MG TAB.ER.24H PO SCH (08:52)
[2021-04-29] MEDS: PARoxetine 30 MG TABLET PO SCH (08:52)
[2021-04-29] MEDS: MethylPREDNISolone 40 MG/ML VIAL IVP SCH ×2 (09:08→16:33)
[2021-04-29] MEDS: Azithromycin 500 MG in 0.9 % Sodium Chloride 250 ML IVPB SCH (16:33)
[2021-04-29] MEDS: Haloperidol Lactate 5 MG/ML VIAL IVP ONE ×2 (17:45→18:10)
[2021-04-29] MEDS ORDERED: Haloperidol Lactate 5 MG/ML VIAL IM ONE (18:11)
[2021-04-29 19:02] LABS: VBG HCO3 22 mEq/L (21-27); VBG PCO2 35 mmHg (41-51); VBG PH 7.41 pH Units (7.32-7.42); VBG PO2 148 mmHg (25-50)
[2021-04-30] MEDS: Ipratropium/Albuterol Neb 3 ML IH SCH ×6 (04:31→23:39)
[2021-04-30] MEDS: *HR* Enoxaparin 40 MG/0.4 ML SYRINGE SQ SCH (05:09)
[2021-04-30] MEDS: MethylPREDNISolone 40 MG/ML VIAL IVP SCH ×2 (05:09→17:04)
[2021-04-30] MEDS: Metoprolol XL (24 HR) Succ 50 MG TAB.ER.24H PO SCH (09:19)
[2021-04-30] MEDS: PARoxetine 30 MG TABLET PO SCH (09:19)
[2021-04-30] MEDS: amLODIPine 5 MG TABLET PO SCH (09:19)
[2021-04-30] MEDS: Gabapentin 300 MG CAPSULE PO SCH ×3 (09:19→21:13)
[2021-04-30] MEDS: ALPRAZolam 0.5 MG TABLET PO SCH ×3 (09:19→21:13)
[2021-04-30] MEDS: Isosorbide MONOnitrate (24 HR) 30 MG TAB.ER.24H PO SCH (09:19)
[2021-04-30] MEDS: Furosemide 20 MG TABLET PO SCH (09:19)
[2021-04-30] MEDS: Azithromycin 500 MG in 0.9 % Sodium Chloride 250 ML IVPB SCH (17:04)
[2021-04-30] MEDS: *HR* OxyCODONE Immed Rel 5 MG TABLET PO PRN ×2 (17:04→21:13)
[2021-04-30] MEDS ORDERED: Dextrose Gel 15 GM/37.5 ML TUBE PO PRN ×2 (17:39)
[2021-04-30] MEDS ORDERED: *HR* Dextrose 50 % in Water (Vial) 50 ML VIAL IVP PRN (17:39)
[2021-04-30] MEDS ORDERED: D5% in Water 1,000 ML IVC PRN (17:39)
[2021-04-30] MEDS: Insulin LISPRO 300 UNITS/3 ML VIAL SUBQ SCH (17:52)
[2021-04-30] MEDS ORDERED: Insulin LISPRO 300 UNITS/3 ML VIAL SUBQ SCH (21:00)
[2021-05-01] MEDS: Ipratropium/Albuterol Neb 3 ML IH SCH ×3 (04:22→11:41)
[2021-05-01] MEDS: MethylPREDNISolone 40 MG/ML VIAL IVP SCH (05:21)
[2021-05-01] MEDS: *HR* Enoxaparin 40 MG/0.4 ML SYRINGE SQ SCH (05:21)
[2021-05-01] MEDS: amLODIPine 5 MG TABLET PO SCH (09:10)
[2021-05-01] MEDS: *HR* OxyCODONE Immed Rel 5 MG TABLET PO PRN (09:10)
[2021-05-01] MEDS: Metoprolol XL (24 HR) Succ 50 MG TAB.ER.24H PO SCH (09:10)
[2021-05-01] MEDS: Isosorbide MONOnitrate (24 HR) 30 MG TAB.ER.24H PO SCH (09:10)
[2021-05-01] MEDS: Furosemide 20 MG TABLET PO SCH (09:10)
[2021-05-01] MEDS: PARoxetine 30 MG TABLET PO SCH (09:10)
[2021-05-01] MEDS: Gabapentin 300 MG CAPSULE PO SCH (09:10)
[2021-05-01] MEDS: ALPRAZolam 0.5 MG TABLET PO SCH (09:11)
[2021-05-01] MEDS: Insulin LISPRO 300 UNITS/3 ML VIAL SUBQ SCH ×2 (09:11→12:16)
[2021-05-01 11:21] VITALS: BP 120/64
[2021-05-03 13:48] LABS: Estimated Average Glucose 163 mg/dl; Hemoglobin A1C 7.3 %
== END 2021-05-01 12:55 | disposition home or self-care (01) | DRG 191 ==
LOC: 2ANU 13:22 → EMEROOARM 13:22 → 2ANU 18:11
PROVIDERS: ADMIT Internal Medicine; ATTEND Internal Medicine

== ENCOUNTER 2021-06-15 12:10 | Observation (INO) ==
[2021-06-15] MEDS ORDERED: Isovue-370 500 ML BOTTLE IVP ONE (12:34)
[2021-06-15 13:08] LABS: Basophils % 0.4 %; Eosinophils # 0.1 K/mcL (0.0-0.6); Eosinophils % 2.8 %; Hematocrit 36.7 % (35.3-44.9); Hemoglobin 12.1 g/dL (11.5-15.4); Immature Granulocytes % 0.2 % (0-4); Lymphocytes # 1.8 K/mcL (0.6-4.6); Lymphocytes % 35.5 %; Mean Corpuscular Hemoglobin 29.1 pg (28.0-33.3); Mean Corpuscular Volume 88.2 fL (83.0-100.0); Mean Platelet Volume 10.3 fL (9.4-12.4); Monocytes # 0.4 K/mcL (0.0-1.3); Monocytes % 7.5 %; Neutrophils # 2.7 K/mcL (1.6-8.9); Platelet Count 142 K/mcL (140-400); Red Blood Count 4.16 M/mcL (3.82-4.97); Red Cell Distribution Width 12.7 % (11.5-14.5); Segmented Neutrophils % 53.6 %; White Blood Count 5.1 K/mcL (4.3-11.1)
[2021-06-15] MEDS ORDERED: Prochlorperazine 10 MG/2 ML VIAL IVP STA (13:40)
[2021-06-15] MEDS ORDERED: 0.9 % Sodium Chloride 500 ML IVC ONE (13:40)
[2021-06-15 13:43] LABS: Alanine Aminotransferase 13 Units/L (7-52); Albumin 3.9 g/dL (3.5-5.7); Albumin/Globulin Ratio 1.6 (1.1-2.2); Alkaline Phosphatase 39 Units/L (34-104); Aspartate Amino Transferase 16 Units/L (13-39); Bilirubin,Direct 0.1 mg/dL (0.0-0.2); Bilirubin,Indirect 0.3 mg/dL (0.0-1.0); Bilirubin,Total 0.4 mg/dL (0.3-1.0); Blood Urea Nitrogen 10 mg/dL (8-23); Calcium 8.8 mg/dL (8.6-10.3); Carbon Dioxide 24 mEq/L (23-29); Chloride 104 mEq/L (98-107); Ethanol < 10 mg/dL (Less than 10); Globulin 2.4 g/dL (2.4-3.5); Potassium 3.8 mEq/L (3.5-5.1); Sodium 135 mEq/L (136-145); Total Protein 6.3 g/dL (6.4-8.9); Troponin I < 0.03 ng/mL (< 0.04)
[2021-06-15 13:55] LABS: BUN/Creatinine Ratio 16 (6-26); Glucose 196 mg/dL (70-105); Osmolality,Calculated 284 (280-300); eGFR For African Americans > 60 (> 60); eGFR For Non-African Americans > 60 (> 60)
[2021-06-15 14:16] LABS: Bilirubin,Urine Negative (Negative); Blood,Urine Negative (Negative); Clarity,Urine Clear (Clear); Color,Urine Colorless (Yellow); Glucose,Urine (UA) Normal (Normal); Ketones,Urine Negative (Negative); Leukocyte Esterase,Urine Negative (Negative); Nitrite,Urine Negative (Negative); Protein,Urine Trace mg/dL (Neg-Trace); Specific Gravity,Urine > 1.030 (1.010-1.025); Urobilinogen,Urine Normal (Normal)
[2021-06-15 14:30] LABS: Amphetamine Screen,Urine Negative ng/mL (Cutoff=1000); Barbiturate Screen,Urine Negative ng/mL (Cutoff=200); Benzodiazepines Screen,Urine Positive ng/mL (Cutoff=200); Cannabinoid Screen,Urine Positive ng/mL (Cutoff = 50); Cocaine Screen,Urine Negative ng/mL (Cutoff= 300); Opiate Screen,Urine Positive ng/mL (Cutoff=300); Phencyclidine Screen,Urine Negative ng/mL (Cutoff=25)
[2021-06-15] MEDS ORDERED: Perflutren Lipid Microsphere 1.3 ML in 0.9 % Sodium Chloride 8.7 ML IVP PRN (15:10)
[2021-06-15] MEDS ORDERED: *HR* Labetalol 20 MG/4 ML SYRINGE IVP PRN (15:17)
[2021-06-15] MEDS ORDERED: Melatonin 3 MG TABLET PO PRN (15:18)
[2021-06-15] MEDS ORDERED: Ondansetron 4 MG/2 ML VIAL IVP PRN (15:18)
[2021-06-15] MEDS ORDERED: Naloxone 0.4 MG/ML INJ IVP PRN (15:18)
[2021-06-15] MEDS ORDERED: Ipratropium/Albuterol Neb 3 ML IH PRN (16:04)
[2021-06-15] MEDS ORDERED: D5% in Water 1,000 ML IVC PRN (16:04)
[2021-06-15] MEDS ORDERED: *HR* Dextrose 50 % in Water (Vial) 50 ML VIAL IVP PRN (16:04)
[2021-06-15] MEDS ORDERED: Dextrose Gel 15 GM/37.5 ML TUBE PO PRN ×2 (16:04)
[2021-06-15] MEDS: Insulin LISPRO 300 UNITS/3 ML VIAL SUBQ SCH (18:29)
[2021-06-15] MEDS: *HR* OxyCODONE Immed Rel 5 MG TABLET PO PRN (18:52)
[2021-06-15] MEDS ORDERED: Insulin LISPRO 300 UNITS/3 ML VIAL SUBQ SCH (21:00)
[2021-06-16 02:39] LABS: Basophils % 0.6 %; Eosinophils # 0.1 K/mcL (0.0-0.6); Hematocrit 35.2 % (35.3-44.9); Hemoglobin 11.8 g/dL (11.5-15.4); Immature Granulocytes % 0.2 % (0-4); Lymphocytes # 2.3 K/mcL (0.6-4.6); Lymphocytes % 48.6 %; Mean Corpuscular HGB Conc 33.5 g/dL (31.6-35.5); Mean Corpuscular Hemoglobin 29.1 pg (28.0-33.3); Mean Corpuscular Volume 86.7 fL (83.0-100.0); Mean Platelet Volume 10.2 fL (9.4-12.4); Monocytes # 0.3 K/mcL (0.0-1.3); Monocytes % 6.9 %; Neutrophils # 1.9 K/mcL (1.6-8.9); Platelet Count 141 K/mcL (140-400); Red Blood Count 4.06 M/mcL (3.82-4.97); Red Cell Distribution Width 12.5 % (11.5-14.5); Segmented Neutrophils % 40.7 %; White Blood Count 4.7 K/mcL (4.3-11.1)
[2021-06-16 03:23] LABS: Folate 6.8 ng/mL (3.0-16.0)
[2021-06-16 03:24] LABS: BUN/Creatinine Ratio 20 (6-26); Blood Urea Nitrogen 12 mg/dL (8-23); Calcium 9.1 mg/dL (8.6-10.3); Carbon Dioxide 25 mEq/L (23-29); Chloride 105 mEq/L (98-107); Chol/HDL Ratio 4.5 (0-4.9); Cholesterol 143 mg/dL (< 200); Glucose 169 mg/dL (70-105); HDL Cholesterol 32 mg/dL (40-59); LDL Cholesterol,Calculated 49 mg/dL (< 100); Osmolality,Calculated 286 (280-300); Potassium 3.9 mEq/L (3.5-5.1); Sodium 136 mEq/L (136-145); Triglycerides 311 mg/dL (< 150); eGFR For African Americans > 60 (> 60); eGFR For Non-African Americans > 60 (> 60)
[2021-06-16 03:52] LABS: Estimated Average Glucose 186 mg/dl; Hemoglobin A1C 8.1 %
[2021-06-16] MEDS: *HR* OxyCODONE Immed Rel 5 MG TABLET PO PRN (04:35)
[2021-06-16 07:17] VITALS: BP 137/81; PULSE 66; TEMP 97.9; O2SAT 91
[2021-06-16] MEDS ORDERED: Ipratropium/Albuterol Neb 3 ML IH PRN (08:19)
[2021-06-16] MEDS ORDERED: hydrOXYzine pamoate 25 MG CAPSULE PO PRN (08:37)
[2021-06-16] MEDS ORDERED: Cyanocobalamin (B-12) 1,000 MCG TABLET PO SCH (09:00)
[2021-06-16] MEDS ORDERED: Gabapentin 400 MG CAPSULE PO SCH (09:00)
[2021-06-16] MEDS ORDERED: Metoprolol XL (24 HR) Succ 50 MG TAB.ER.24H PO SCH (09:00)
[2021-06-16] MEDS ORDERED: Furosemide 20 MG TABLET PO SCH (09:00)
[2021-06-16] MEDS ORDERED: ROSUVASTATIN CALCIUM 20 MG PO SCH (09:00)
[2021-06-16] MEDS ORDERED: Isosorbide MONOnitrate (24 HR) 30 MG TAB.ER.24H PO SCH (09:00)
[2021-06-16] MEDS ORDERED: ALPRAZolam 0.5 MG TABLET PO SCH (09:00)
[2021-06-16] MEDS ORDERED: PARoxetine 30 MG TABLET PO SCH (09:00)
[2021-06-16] MEDS: Insulin LISPRO 300 UNITS/3 ML VIAL SUBQ SCH ×2 (09:55→11:39)
[2021-06-16] MEDS ORDERED: Tiotropium 10 INH DOSE IH SCH (10:00)
== END 2021-06-16 12:30 | disposition home or self-care (01) ==
LOC: 3BNU 12:10 → EMEROOARM 12:10 → SUATTDRO 15:07 → 3BNU 15:58
PROVIDERS: ADMIT Pharmacist; ATTEND Internal Medicine